=== PATIENT | male | born 1955 | race African-American/Black ===

== ENCOUNTER 2023-09-28 13:05 | Outpatient (AMB) | payer MEDICARE, MEDICAID, SELFPAY ==
--- NOTE | 2023-09-28 12:59 | HO.NEPHOV ---
HPI HPI Comments History of Present Illness Details Clarisa is a 68-year-old man with a history of longstanding diabetes mellitus hypertension dyslipidemia obesity and obstructive sleep apnea new coronary disease and status post mitral valve replacement in 2008. He has severe biventricular dysfunction along with chronic pulmonary disease. Next he is here for follow-up regarding his chronic disease. He has history of severe anemia and was previously treated with the intravenous iron. Hemoglobin improved with iron replacement and hemoglobin has been stable thus far and he has not required any erythropoietin injections. [facility] Surgical History (Updated 09/28/23 @ 13:16 by Beba Brady) S/P hip replacement H/O heart surgery Family History (Updated 09/28/23 @ 13:19 by Beba Brady) Father Medical condition not demonstrated Mother No problems noted. Vital Signs 09/28/23 13:07 Height 6 ft Weight 254 lb 6 oz BMI 34.5 BP 100/68 Blood Pressure Location Lt brachial Position Sitting Pulse 60 Pulse Source Pulse Oximeter Pulse Oximetry (%) 98 Oxygen Delivery Method Room Air Physical Exam Vital Signs: Last Vital Signs Pulse 60 09/28/23 13:07 BP 100/68 09/28/23 13:07 Pulse Ox 98 09/28/23 13:07 Oxygen Delivery Method Room Air 09/28/23 13:07 BMI result Body Mass Index 34.5 Const General: comfortable; No acute distress Orientation/consciousness: patient oriented x3 Eyes General: appearance normal, both eyes and all related structures Visual Wagner: normal visual wagner by confrontation Neck Neck: Yes supple and Yes no JVD Resp Effort & Inspection: normal respiratory effort and respiratory effort not decreased Auscultation: rhonchi Cardio Palpation: no palpable S3 and no palpable S4 Heart sounds: no rubs GI Inspection: Yes normal to inspection Palpation (GI): Soft to palpation Percussion: Yes normal to percussion Auscultation: normal bowel sounds General: Yes no CVA tenderness Back/Spine/Pelvis Back: no CVA tenderness Skin General skin exam: no petechiae and no purpura Neuro General: patient oriented x3 and no focal motor deficits Extrem General: No clubbing and No edema Results Reviewed Results Reviewed: All lab results reviewed. In July 2023 serum creatinine was 2 point 4 with EGFR of 29 mL/minute. Assessment & Plan Assessment & Plan (1) CKD (chronic kidney disease) stage 4, GFR 15-29 ml/min: Code(s): N18.4 - Chronic kidney disease, stage 4 (severe) Plan: Renal functions close to baseline. Goal is to slow the portion disease. Continue our nephrotoxic agents including NSAIDs. He is at high risk for ongoing renal injury. (2) Anemia: Code(s): D64.9 - Anemia, unspecified Plan: Hemoglobin improved after iron supplementation. No absolute indication for erythropoietin injection. Follow hematocrit periodically (3) CHF (congestive heart failure): Code(s): I50.9 - Heart failure, unspecified Plan Currently appears compensated He is on Entresto approximate and spironolactone. Encouraged to stay on low-potassium diet since he is at risk for hyperkalemia Continue close follow-up with Cardiology Orders: Orders Blood Urea Nitrogen 11 Months N18.4 - Chronic kidney disease, stage 4 (severe) Creatinine 11 Months N18.4 - Chronic kidney disease, stage 4 (severe) Complete Blood Count no Diff 11 Months N18.4 - Chronic kidney disease, stage 4 (severe) Electrolytes 11 Months N18.4 - Chronic kidney disease, stage 4 (severe) Calcium 11 Months N18.4 - Chronic kidney disease, stage 4 (severe) Coding Level of Care Code Est Pt Level 4 (58419) Diagnoses CKD (chronic kidney disease) stage 4, GFR 15-29 ml/min N18.4 Anemia D64.9 CHF (congestive heart failure) I50.9
[2023-09-28 13:07] VITALS: BP 100/68; PULSE 60; O2SAT 98; BMI 34.5
== END 2023-09-28 13:40 | disposition home or self-care (01) ==
PROVIDERS: PCP Internal Medicine; Visit Provider Internal Medicine Hypertension Specialist
DX: N18.4 Chronic kidney disease, stage 4 (severe) (principal); D64.9 Anemia, unspecified; I50.9 Heart failure, unspecified
CPT/HCPCS: 99214

== ENCOUNTER → 2023-09-28 13:05 | Outpatient (BNVA) | payer MEDICARE, MEDICAID, SELFPAY | PROVIDERS: PCP Internal Medicine; Visit Provider Internal Medicine Hypertension Specialist | DX: E11.22 Type 2 diabetes mellitus with diabetic chronic kidney disease (principal); I13.0 Hypertensive heart and chronic kidney disease with heart failure and stage 1 through stage 4 chronic kidney disease, or unspecified chronic kidney disease; N18.4 Chronic kidney disease, stage 4 (severe); I50.9 Heart failure, unspecified; D64.9 Anemia, unspecified | CPT/HCPCS: 99212 ==

== ENCOUNTER 2024-08-01 08:28 | Outpatient (AMB) | payer MEDICARE, MEDICAID, SELFPAY ==
--- NOTE | 2024-08-01 08:30 | HO.NEPHOV_ITS ---
Vital Signs 08/01/24 08:33 Height 6 ft Weight 252 lb BMI 34.2 BP 112/62 Blood Pressure Location Lt brachial Position Sitting Pulse 55 Pulse Source Pulse Oximeter Pulse Oximetry (%) 95 Oxygen Delivery Method Room Air Intake Visit Reasons: 1Y follow up/ Conf Scalp Treatment Operator Required: No Accompanied by: Self / Same As Patient Allergies Penicillins Allergy (Verified 08/01/24 08:33) rash acetaminophen [From Percocet] Adverse Reaction (Verified 08/01/24 08:33) Rash oxycodone [From Percocet] Adverse Reaction (Verified 08/01/24 08:33) Rash Medication List - Last Reconciled 08/01/24 by Mian Ham MD allopurinol 100 mg PO DAILY amlodipine 10 mg PO DAILY aspirin 81 mg PO DAILY carvedilol 25 mg PO BID cholecalciferol (vitamin D3) (Vitamin D3) 25 mcg PO DAILY ferrous gluconate mg PO magnesium oxide 400 mg PO DAILY mecobalamin (vitamin B12) mcg PO multivitamin 1 tab PO DAILY omeprazole 40 mg PO DAILY rosuvastatin 40 mg PO DAILY sacubitril-valsartan 97-103 mg (Entresto) 1 tab PO BID semaglutide (Ozempic) mg subcut QWEEK spironolactone 25 mg PO DAILY torsemide 40 mg PO DAILY umeclidinium-vilanterol 62.5-25 mcg/actuation (Anoro Ellipta) 1 inh inhalation DAILY warfarin 5 mg PO QDAY warfarin mg PO HPI Comments Details: Marino is a 69-year-old man with a history of longstanding diabetes mellitus hypertension dyslipidemia obesity and obstructive sleep apnea new coronary disease and status post mitral valve replacement in 2008. He has severe biventricular dysfunction along with chronic pulmonary disease. he is here for follow-up regarding his chronic disease. He has history of severe anemia and was previously treated with the intravenous iron. Hemoglobin improved with iron replacement and hemoglobin has been stable thus far and he has not required any erythropoietin injections. 08/01/24 Here for annual follow up Had knee replacement in December 2023 No change in diuretics PFSH Surgical History S/P hip replacement H/O heart surgery Family History Father Medical condition not demonstrated Mother No problems noted. Physical Exam Vital Signs: Last Vital Signs Pulse 55 08/01/24 08:33 BP 112/62 08/01/24 08:33 Pulse Ox 95 08/01/24 08:33 Oxygen Delivery Method Room Air 08/01/24 08:33 BMI result Body Mass Index 34.2 Const General: comfortable; No acute distress Orientation/consciousness: patient oriented x3 Eyes General: appearance normal, both eyes and all related structures Visual Wagner: normal visual wagner by confrontation Neck Neck: Yes supple and Yes no JVD Resp Effort & Inspection: normal respiratory effort and respiratory effort not decreased Auscultation: rhonchi Cardio Palpation: no palpable S3 and no palpable S4 Heart sounds: no rubs GI Inspection: Yes normal to inspection Palpation (GI): Soft to palpation Percussion: Yes normal to percussion Auscultation: normal bowel sounds General: Yes no CVA tenderness Back/Spine/Pelvis Back: no CVA tenderness Skin General skin exam: no petechiae and no purpura Neuro General: patient oriented x3 and no focal motor deficits Extrem General: No clubbing and No edema Results Reviewed Results Reviewed: Jul 2024 Peaked to 4.1 and now down to 3.18 Baseline is close to 2.2 Nephrology Results: No Data to Display Assessment & Plan Assessment & Plan (1) CKD (chronic kidney disease) stage 4, GFR 15-29 ml/min: Code(s): N18.4 - Chronic kidney disease, stage 4 (severe) Category: Medical Plan: Renal functions Worsened and now improving Possible hypoperfusion Ok to decrease Torsemide to 20 mg QD and watch weight If weight increased by more than 3 lbs, can increase to 40 mg PRN Recheck in 1 month Continue our nephrotoxic agents including NSAIDs. He is at high risk for ongoing renal injury. (2) Anemia: Code(s): D64.9 - Anemia, unspecified Category: Medical Plan: Hemoglobin improved after iron supplementation. No absolute indication for erythropoietin injection. Follow hematocrit periodically Ordered CBC /Iron (3) CHF (congestive heart failure): Code(s): I50.9 - Heart failure, unspecified Category: Medical Plan Currently appears compensated He is on Entresto approximate and spironolactone/ Torsemide Encouraged to stay on low-potassium diet since he is at risk for hyperkalemia Continue close follow-up with Cardiology Orders: Orders Basic Metabolic Panel 1 Month D64.9 - Anemia, unspecified, N18.4 - Chronic kidney disease, stage 4 (severe) Ferritin 1 Month D64.9 - Anemia, unspecified, N18.4 - Chronic kidney disease, stage 4 (severe) Complete Blood Count Auto Diff 1 Month D64.9 - Anemia, unspecified, N18.4 - Chronic kidney disease, stage 4 (severe) IRON PROFILE 1 Month D64.9 - Anemia, unspecified, N18.4 - Chronic kidney disease, stage 4 (severe) Coding Level of Care Code Est Pt Level 4 (10555) Diagnoses CKD (chronic kidney disease) stage 4, GFR 15-29 ml/min N18.4 Anemia D64.9 CHF (congestive heart failure) I50.9
[2024-08-01 08:33] VITALS: BP 112/62; PULSE 55; O2SAT 95; BMI 34.2
== END 2024-08-01 09:02 | disposition home or self-care (01) ==
PROVIDERS: PCP Internal Medicine; Visit Provider Internal Medicine Hypertension Specialist
DX: N18.4 Chronic kidney disease, stage 4 (severe) (principal); D64.9 Anemia, unspecified; I50.9 Heart failure, unspecified
CPT/HCPCS: 99214

== ENCOUNTER → 2024-08-01 08:28 | Outpatient (BNVA) | payer MEDICARE, MEDICAID, SELFPAY | PROVIDERS: PCP Internal Medicine; Visit Provider Internal Medicine Hypertension Specialist | DX: N18.4 Chronic kidney disease, stage 4 (severe) (principal); I50.9 Heart failure, unspecified; D64.9 Anemia, unspecified | CPT/HCPCS: 99212 ==

== ENCOUNTER 2025-02-13 09:59 | Outpatient (AMB) | payer MEDICARE, MEDICAID, SELFPAY ==
[2025-02-13 09:55] VITALS: BP 112/60; PULSE 60; O2SAT 96; BMI 34.7
--- NOTE | 2025-02-13 09:55 | HO.NEPHOV ---
Vital Signs 02/13/25 09:55 Height 6 ft Weight 256 lb BMI 34.7 BP 112/60 Blood Pressure Location Lt brachial Position Sitting Pulse 60 Pulse Source Pulse Oximeter Pulse Oximetry (%) 96 Oxygen Delivery Method Room Air Intake Visit Reasons: 6m follow up/ Conf Allergies Penicillins Allergy (Verified 02/13/25 09:55) rash acetaminophen [From Percocet] Adverse Reaction (Verified 02/13/25 09:55) Rash oxycodone [From Percocet] Adverse Reaction (Verified 02/13/25 09:55) Rash Medication List - Last Reconciled 02/13/25 by Mian Ham MD allopurinol 100 mg PO DAILY amlodipine 10 mg PO DAILY aspirin 81 mg PO DAILY carvedilol 25 mg PO BID cholecalciferol (vitamin D3) (Vitamin D3) 25 mcg PO DAILY ferrous gluconate mg PO magnesium oxide 400 mg PO DAILY mecobalamin (vitamin B12) mcg PO multivitamin 1 tab PO DAILY omeprazole 40 mg PO DAILY rosuvastatin 40 mg PO DAILY sacubitril-valsartan 97-103 mg (Entresto) 1 tab PO BID semaglutide (Ozempic) mg subcut QWEEK spironolactone 25 mg PO DAILY torsemide 40 mg PO DAILY umeclidinium-vilanterol 62.5-25 mcg/actuation (Anoro Ellipta) 1 inh inhalation DAILY warfarin 5 mg PO QDAY warfarin mg PO HPI Comments Details: Marino is a 69-year-old man with a history of longstanding diabetes mellitus hypertension dyslipidemia obesity and obstructive sleep apnea new coronary disease and status post mitral valve replacement in 2008. He has severe biventricular dysfunction along with chronic pulmonary disease. he is here for follow-up regarding his chronic disease. He has history of severe anemia and was previously treated with the intravenous iron. Hemoglobin improved with iron replacement and hemoglobin has been stable thus far and he has not required any erythropoietin injections. 08/01/24 Here for annual follow up;Had knee replacement in December 2023;No change in diuretics [facility] Surgical History S/P hip replacement H/O heart surgery Family History Father Medical condition not demonstrated Mother No problems noted. Physical Exam Vital Signs: Last Vital Signs Pulse 60 02/13/25 09:55 BP 112/60 02/13/25 09:55 Pulse Ox 96 02/13/25 09:55 Oxygen Delivery Method Room Air 02/13/25 09:55 BMI result Body Mass Index 34.7 Results Reviewed Nephrology Results: No Data to Display Assessment & Plan Assessment & Plan (1) CKD (chronic kidney disease) stage 4, GFR 15-29 ml/min: Code(s): N18.4 - Chronic kidney disease, stage 4 (severe) Category: Medical Plan: Renal function is close to baseline. Continue to avoid nephrotoxic agents including NSAIDs. He is at high risk for ongoing renal injury. (2) Anemia: Code(s): D64.9 - Anemia, unspecified Category: Medical Plan: Hemoglobin improved after iron supplementation. No absolute indication for erythropoietin injection. Follow hematocrit periodically Ordered CBC /Iron (3) CHF (congestive heart failure): Code(s): I50.9 - Heart failure, unspecified Category: Medical Plan Currently appears compensated He is on Entresto approximate and spironolactone/ Torsemide Encouraged to stay on low-potassium diet since he is at risk for hyperkalemia Continue close follow-up with Cardiology Orders: Orders Basic Metabolic Panel 6 Months D64.9 - Anemia, unspecified, N18.4 - Chronic kidney disease, stage 4 (severe) Complete Blood Count no Diff 6 Months D64.9 - Anemia, unspecified, N18.4 - Chronic kidney disease, stage 4 (severe) Coding Level of Care Code Est Pt Level 4 (19484) Diagnoses CKD (chronic kidney disease) stage 4, GFR 15-29 ml/min N18.4 Anemia D64.9 CHF (congestive heart failure) I50.9
--- OUTSIDE RECORDS SUMMARY | 2025-02-13 11:26 | XMS_ITS | Encounter Summary ---
Author Name [facility] [facility] [place] Address [address] [place] [address] Care Team Providers Care Equip Maint Eng Name Role Phone FERMIN MEJIA Primary Care Provider Unavailabl e Insurance Providers: All historical and current Section Date Range: From patient's date of to the date document was created. This section includes the names of all active insurance providers for the patient. Insurance Provider Type of Coverage Plan Name Start of Policy Coverage End of Policy Coverage Group Number Member ID Insurance Provider's Telephone Number Policy Mendiola's Name Patient's Relationship to Policy Mendiola [employer] [facility] ([facility]) MEDICARE ADVANTAGE [facility] ([facility]) Jul 31, 2017 [id number] STEVEN ALEXANDRE JR S PATIENT MEDICARE ([facility]) MEDICARE (M) PART A Mar 31, 2012 PART A [id number] VANDA ALEXANDRE JRLE S PATIENT MEDICARE (WNR) MEDICARE (M) PART B Mar 31, 2012 PART B [id number] BALDOMERO HORNESTEVEN S PATIENT MEDICARE (WNR) MEDICARE (M) PART A Mar 31, 2012 PART A [id number] STEVEN ALEXANDRE JR S PATIENT MEDICARE ([facility]) MEDICARE (M) PART B Mar 31, 2012 PART B [id number] STEVEN ALEXANDRE JR S PATIENT MEDICARE (WNR) MEDICARE (M) PART A Mar 31, 2012 PART A [id number] [phone] STEVEN ALEXANDRE JR S PATIENT MEDICARE (WNR) MEDICARE (M) PART B Mar 31, 2012 PART B [id number] [phone] STEVEN ALEXANDRE JR S PATIENT MEDICARE (WNR) MEDICARE (M) PART A Mar 31, 2012 PART A [id number] [phone] STEVEN ALEXANDRE JR S PATIENT MEDICARE (WNR) MEDICARE (M) PART B Mar 31, 2012 PART B [id number] [phone] STEVEN ALEXANDRE JR S PATIENT MEDICARE (WNR) MEDICARE (M) PART A Mar 31, 2012 PART A [id number] STEVEN ALEXANDRE JR S PATIENT MEDICARE (WNR) MEDICARE (M) PART B Mar 31, 2012 PART B [id number] STEVEN ALEXANDRE JR S PATIENT MEDICARE PART D (WNR) PRESCRIPT ION PART D May 31, 2012 PART D [id number] [phone] STEVEN ALEXANDRE JR PATIENT MEDICARE PART D (WNR) PRESCRIPT ION PART D May 31, 2012 PART D [id number] STEVEN ALEXANDRE JR PATIENT Selected Encounter This section includes the information on record at [place] for the Encounter. Date/Time Encounter Type Encounter Description Reason Provider Source Jan 31, 2025 08:30 AM OFFICE O/P EST MOD 30 MIN PODIATRY ICD-10-CM L60.3 Nail dystrophy CLAUDIA RASHEED Leonardo Encounter Template Text not used by [place] Assessments - Encounter Diagnoses This section includes the primary and secondary diagnoses documented for the Encounter. Date/Time Primary/Secondary Diagnosis Diagnosis Name Provider Source Jan 31, 2025 08:59 AM PRIMARY Nail dystrophy CLAUDIA RASHEED Jan 31, 2025 08:59 AM SECONDARY Pain in left toe(s) CLAUDIA RASHEED Jan 31, 2025 08:59 AM SECONDARY Pain in right toe(s) CLAUDIA RASHEED Jan 31, 2025 08:59 AM SECONDARY Type 2 diabetes w diabetic peripheral angiopath w/o gangrene CLAUDIA RASHEED [place] Plan of Treatment: Future Appointments (+ 6 months) and Future Tests (+/- 45 days) The Plan of Treatment section includes future care activities for the patient from [facility] [place] [facility]. This section includes future appointments and future orders which are active, pending or scheduled. Future Appointments This section includes appointments that were scheduled to occur 6 months from the date of the Encounter, up to a maximum of 20 appointments. The data comes from all [facility] facilities. Appointment Date/Time Appointment Type Appointme nt Facility Name Feb 06, 2025 10:30 AM AMBULATORY - MEDICINE [facility] Feb 12, 2025 08:00 AM AMBULATORY - PSYCHIATRY [facility] March 07, 2025 08:00 AM AMBULATORY - PSYCHIATRY [facility] March 12, 2025 10:00 AM AMBUL[facility]ORY - MEDICINE [facility] May 14, 2025 02:00 PM AMBULATORY - MEDICINE [facility] Jun 06, 2025 08:30 AM AMBULATORY - MEDICINE [facility] Jul 24, 2025 08:30 AM [facility] Social History: Smoking Status (Most current) and Tobacco Use (All prior to encounter date) This section includes the most current, and the historical, smoking and tobacco- related health factors from the [place] facility where the Encounter took place. Current Smoking Status This section includes the most current smoking, or tobacco-related health factor, from the [place] facility where the Encounter took place. Date/Time Current Smoking Status Comment David ity Jun 18, 2022 09:00 AM [place]-TOBACCO QUIT 15 YRS OR MORE [place] Tobacco Use History This section includes a history of the smoking, or tobacco-related health factors, that were collected on or before the date of the Encounter. The data comes from the [place] facility where the Encounter took place. Date/Time Smoking Status/Tobacco Use Comment F acility Jun 18, 2022 09:00 AM VA-TOBACCO QUIT 15 YRS OR MORE [place] March 20, 2021 02:00 PM VA-TOBACCO FORMER USER [place] March 20, 2021 02:00 PM VA-TOBACCO QUIT 15 YRS OR MORE [place] May 25, 2018 08:15 AM VA-TOBACCO FORMER USER [place] May 25, 2018 08:15 AM VA-TOBACCO QUIT 15 YRS OR MORE [place] May 10, 2018 04:32 PM [facility] Oct 28, 2016 12:56 PM QUIT TOBACCO USE > 7 YEARS AGO stopped smoking 20 years ago [place] Oct 30, 2015 12:58 PM QUIT TOBACCO USE > 7 YEARS AGO [place] Encounter Notes: All associated encounter notes This section contains the clinical notes associated to the Encounter. Date/Time Encounter Note(s) Provider Source Feb 11, 2025 09:13 AM LETTERS: LOCAL TITLE: PATIENT LETTER (B) STANDARD TITLE: LETTERS DATE OF NOTE: FEB 11, 2025@09:13 ENTRY DATE: FEB 11, 2025@09:13:34 AUTHOR: HERMILO ODONNELL COSIGNER: URGENCY: STATUS: COMPLETED [facility] [address] [place] [address] [phone] * [phone] * CLAUDIA ALEXANDRE [address] [place] [id number] Date: FEB 11, 2025 Dear : This is a reminder letter that your SHOES are [facility] pick [facility] located at [address] [place] [address]. You may pick up operator your shoes and or orthotics at your convenience any day, Tuesday through Tuesday between 8:30am and 3:30pm. You do not need an appointment. BUT WE DO REQUEST THAT YOU CALL BEFORE ARRIVING TO MAKE SURE THE PODIATRY HEALTH PEGA DEVELOPER IS AVAILABLE ON THAT DAY. Call [phone] for Hermilo if you have any questions. We hope to see you soon, Sincerely, Office Staff for:FERMIN MEJIA Care Provider Upcoming Appointments: 02/12/2025 08:00 SPR [facility] SWA 1 03/12/2025 10:00 [facility] ACUPUNCTURE R2 1 05/14/2025 14:00 SPR PACT 1 SELECTOR PACKER 06/06/2025 08:30 SPR PODIATRY 1 07/24/2025 08:30 [facility] DENTAL RDH 1 AM HERMILO ODONNELLFIELD Jan 31, 2025 09:01 AM PODIATRY NOTE: LOCAL TITLE: PODIATRY PAVE FOOT EXAM STANDARD TITLE: PODIATRY NOTE DATE OF NOTE: JAN 31, 2025@09:01 ENTRY DATE: JAN 31, 2025@09:01:11 AUTHOR: CLAUDIA RASHEED EXP COSIGNER: URGENCY: STATUS: COMPLETED PAVE FOOT EXAM A foot risk level was completed. The following risk level was identified for this patient: +POD RISK SCORE+ *--LEVEL 3 - (HIGH RISK)* ANY of the following: Severe obstructive peripheral arterial disease Ulceration; OR history of ulceration, osteomyelitis, or amputation Charcot joint w/foot deformity Chronic kidney disease, stage 4 or higher (Decreased sensation, foot deformity, and minor foot infection may be present or absent) LEVEL 3 FOOT EDUCATION: 1. Advised patient that extra depth footwear with soft molded inserts and braces may be required. 2. Advised patient not to walk barefoot. Instructed the patient to pay close attention to the style and fit of shoes. 3. Explained the importance of daily foot checks. Explained that loss of sensation leads to callouses. Callouses break down, which result in ulcers that may lead to gangrene and amputation. 4. Stressed the importance of daily foot hygiene. Warm (not hot) bathing of the feet, complete drying and thorough inspection for changes in the condition of the skin constitute daily foot care. Demonstrated how to do a thorough foot check. 5. Emphasized the use of clean, non-restrictive socks/stockings and well fitting shoes. 6. Stressed the importance of immediate follow-up of any foot injuries or ulcers. Explained that he/she should be non-weight bearing whenever there are lesions on the foot, to prevent cellular damage. Level of Understanding: Good Patient/Family Response to Foot Care Teaching Patient walks barefoot: A few times per month Patient/caregiver able to clean feet at least once daily: Yes Patient/caregiver has difficulty examining feet: No /clint/ CLAUDIA RASHEED DPM SENIOR MARKETING SPECIALIST Signed: 01/31/2025 09:01 CLAUDIA RASHEED [place] Jan 31, 2025 07:26 AM PODIATRY NOTE: LOCAL TITLE: PODIATRY NOTE STANDARD TITLE: PODIATRY NOTE DATE OF NOTE: JAN 31, 2025@07:26 ENTRY DATE: JAN 31, 2025@07:26:16 AUTHOR: CLAUDIA RASHEED EXP COSIGNER: URGENCY: STATUS: COMPLETED RECEIVED BOTH COVID DOSES FROM [facility] AND PROVIDED HIS CARD FOR COPYING AT [facility] FOR MEDICAL RECORDS-RECEIVED 4 BOOSTERS LAST SEEN FOR TREATMENT: 09/26/2024 S: Pt. is a 69 yo alert WDWN AFR-AMER MALE who is seen for CONTINUED podiatric evaluation & care for treatment of painful incurvated nails & acutely painful hyperkeratosis. There has been pain for several weeks which is daily with periods of exacerbation & remission, is of an aching throbbing nature and is exacerbated with shoes & increased activity. Pain level is 2-3/10 prior to treatment & 0/10. There is no history of trauma. There have been no recent changes in the patient's medical condition or medications upon questioning today. Pt. is at risk of injury with self-care due to the presence of TYPE II DM. *MEDS RECONCILIATION PERFORMED THIS DATE SEE BELOW-DENIES ANY RECENT CHANGES DENIES TOBACCO TOBACCO USE=NONE O: Exam reveals skin color & temp to be WNL text has areas of dryness plantar aspect of heels bilat. There is absence of hair noted. Nails are incurvated with rubor in the medial & lateral nail grooves and pain on palpation. Affected nails are as follows: HALLUX bilat WELL LESSER DIGIT NAILS. There are multiple hyperkeratosis noted at the following locations: PLANTAR HALLUX BILAT, PLANTAR 2ND MET HEAD BILAT, PLANTAR 5TH RT MET HEAD & LATERAL 5TH LT MET HEAD & POSTERIOR-PLANTAR HEELS BILATERAL. There are no other gross LE changes in status noted this date. PMH: Active problems - Computerized Problem List is the source for the following: *NOTE: REVIEWED ABOVE NOTING NO CHANGES SINCE PREVIOUS VISIT:(TYPE II DM, CHF) *NOTE: PLEASE SEE PROBLEM LIST TEMPLATE FOR COMPLETE LIST NEEDED. A1c = 7.1 (LAST TAKEN: 12/2024-[facility]?) UPN=298EE RISK=2 HEIGHT: 61 in [154.9 cm] (03/02/2016 15:01) WEIGHT: 188.1 lb [85.5 kg] (03/02/2016 15:01) VASCULAR: EXAM REVEALS DP & PT pulses TO BE absent non-palpable bilateral. CFT <3 sec x 10. There is +2 edema and there are no varices noted. MUSCULOSKELETAL: Exam reveals muscle strength and tone to be equal & symmetrical bilaterally & WNL for an individual of this age and present physical-medical condition. There is pain free ROM at all joints distal to and including the ankle. NEUROLOGICAL: Exam reveals S/D, vibratory, light touch & proprioception sensations to be equal & symmetrical bilaterally & diminished for an individual of this age and present physical-medical status. Protective sensation utilizing a [place]-Melony lOg monofilament is 10/10 bilateral. ABOVE Exams are reviewed and noted to be unchanged since previous visit & determined to be non-contributory to the cc other than in areas of hyperkeratosis. *NOTE: *YEARLY COMPLETE PAVE EXAM PERFORMED TODAY - SEE BELOW. A: Clinical Impression: Painful onychocryptic nails as noted above & hyperkeratosis in the presence of PVD, DM, NEUROPATHY. Class findings have been met in a high risk individual and the systemic condition has resulted in circulatory impairment & areas of desensitization. P: Treatment consists of trimming-reduction of all nails via manual and electric means with excision of offending nail borders and curetting of nail grooves & surgical paring-debridement of all hyperkeratosis utilizing a sterile #10 scalpel. Applied ammonium lactate 12% lotion to dry skin. All care rendered without complications & pt. progressing well after podiatric care this date & will be scheduled for periodic care in an attempt to prevent future complications due to the underlying medical conditions. Tx. By a non- professional could be extremely hazardous to the patient's well-being due to the underlying medical condition. RTC 20 WEEKS (01/31 @8:30AM)) *NOTE: REVIEWED HOME FOOT CARE FEET ARE IN EXCELLENT CONDITION AND I PROVIDED WRITTEN RECOMMENDATIONS FOR CONTINUED HOME CARE ( FOOT CARE TIPS) *DISCUSSED NEW PROTOCOLS AND CALLED [facility] TODAY FOR RESCHEDULING I DISCUSSED THE FINDINGS & PLAN WITH PATIENT (UNCHANGED SINCE PREVIOUS VISIT) & PATIENT AGREES AND UNDERSTANDS PLAN & RECEIVED NEW MIRROR Medication Reconciliation: PERFORMED TODAY - SEE BELOW. Outpatient: Has the patient been taking medications as documented in the EMLR? YES: The patient has been taking medications as documented in the EMLR. Essential Medication List for Review used to complete this medication reconciliation. INCLUDED IN THIS LIST: Alphabetical list of active outpatient prescriptions dispensed from this [place] (local) and dispensed from another [place] or [facility] facility (remote) as well as inpatient orders (local, pending and active), local clinic medications, locally documented non-VA medications, and local prescriptions that have or been discontinued in the past 90 days. - All changes in medications, including all non-VA/Herbal/OTC medications were entered into CPRS. - If there were any medications the patient should no longer take, they were discontinued. - The patient/caregiver was instructed to update this list, discard old lists, and take this list to the next appointment, whether with a VA or non-VA provider. JLV Link Data on this list may not be complete. Please check JLV. Allergies/ADRs (Tool #5) FACILITY ALLERGY/ADR -------- [facility] ACETAMINOPHEN/OXYCODONE [facility] PENICILLIN [facility]IRON[facility]ONE [facility] ACETAMINOPHEN/OXYCODONE [facility] PENICILLIN Med Recon NoGlossary (Tool #1) INCLUDED IN THIS LIST: Alphabetical list of active outpatient prescriptions dispensed from this [place] (local) and dispensed from another [place] or [facility] facility (remote) as well as inpatient orders (local pending and active), local clinic medications, locally documented non-VA medications, and local prescriptions that have or been discontinued in the past 90 days. Non-VA Meds Last Documented On: Apr 23, 2024 NOTE The display of VA prescriptions dispensed from another [place] or [facility] facility (remote) is limited to active outpatient prescription entries matched to National Drug File at the originating site and may not include some items such as investigational drugs, compounds, etc. NOT INCLUDED IN THIS LIST: Medications self-entered by the patient into personal health records (i.e. [employer]) are NOT included in this list. Non-VA medications documented outside this [place], remote inpatient orders (regardless of status) and remote clinic medications are NOT included in this list. The patient and provider must always discuss medications the patient is taking, regardless of where the medication was dispensed or obtained. Non-VA ALLOPURINOL 100MG TAB TAKE ONE TABLET BY MOUTH DAILY Medication prescribed by Non-VA provider. Non-VA AMLODIPINE BESYLATE 5MG TAB TAKE ONE TABLET BY MOUTH ONCE DAILY Medication prescribed by Non-VA provider. OUTPT AMMONIUM LACTATE 12% LOTION (Status = Active) APPLY SMALL AMOUNT TOPICALLY TWICE DAILY FOR DRY SKIN FOR DRY IRRITATED SKIN Rx# [id number] Last Released: 11/15/24 Qty/Days Supply: 240/60 Rx Expiration Date: 09/27/25 Refills Remainin Indication: FOR DRY SKIN Non-VA ASPIRIN 81MG EC TAB TAKE ONE TABLET BY MOUTH DAILY Medication prescribed by Non-VA provider. OUTPT ATORVASTATIN CALCIUM 80MG TAB (Status = Active) TAKE ONE-HALF TABLET BY MOUTH ONCE DAILY FOR HIGH CHOLESTEROL Rx# [id number] Last Released: 12/18/24 Qty/Days Supply: 45/90 Rx Expiration Date: 12/19/25 Refills Remainin Indication: FOR HIGH CHOLESTEROL Non-VA CARVEDILOL 25MG TAB TAKE ONE TABLET BY MOUTH TWICE DAILY Medication prescribed by Non-VA provider. OUTPT CYANOCOBALAMIN 500MCG TAB (Status = Active) TAKE ONE TABLET BY MOUTH ONCE DAILY FOR PREVENTION OF VITAMIN B12 DEFICIENCY Rx# [id number] Last Released: 12/18/24 Qty/Days Supply: 100/90 Rx Expiration Date: 08/03/25 Refills Remainin Indication: FOR PREVENTION OF VITAMIN B12 DEFICIENCY Non-VA FERROUS GLUCONATE 324MG TAB TAKE ONE TABLET BY MOUTH ONCE DAILY Medication prescribed by Non-VA provider. Non-VA FLUTICASONE PROP 220MCG 120D ORAL INHL INHALE 2 PUFFS BY MOUTH TWICE DAILY Medication prescribed by Non-VA provider. Non-VA INSULIN,GLARGINE (LANTUS) INJ INJECT 15 UNITS SUBCUTANEOUSLY ONCE DAILY Medication prescribed by Non-VA provider. OUTPT ISOSORBIDE MONONITRATE 30MG SA TAB (Status = ) TAKE ONE TABLET BY MOUTH ONCE DAILY TO PREVENT ANGINA Rx# [id number] Last Released: 12/11/24 Qty/Days Supply: Rx Expiration Date: 01/09/25 Refills Remainin Indication: TO PREVENT ANGINA Non-VA MULTIVITAMIN/MINERALS CAP/TAB TAKE ONE TABLET BY MOUTH ONCE DAILY Medication prescribed by Non-VA provider. Non-VA OLODATEROL/TIOTROP 2.5MCG/ACTUAT 60D INH INHALE 2 PUFFS (1 DOSE) BY MOUTH ONCE DAILY Medication prescribed by Non-VA provider. Non-VA SACUBITRIL 97MG/VALSARTAN 103MG TAB 103MG TABLET TAKE ONE TABLET BY MOUTH TWICE DAILY Medication prescribed by Non-VA provider. Non-VA SEMAGLUTIDE 1MG/0.75ML INJ PEN 3ML INJECT 1MG SUBCUTANEOUSLY ONCE A WEEK Medication prescribed by Non-VA provider. Non-VA SPIRONOLACTONE 25MG TAB TAKE ONE TABLET BY MOUTH ONCE DAILY Medication prescribed by Non-VA provider. Non-VA TORSEMIDE 20MG TAB TAKE ONE TABLET BY MOUTH EVERY MORNING FOR 90 DAYS AND TAKE TWO TABLETS BY MOUTH EVERY EVENING FOR 90 DAYS Medication prescribed by Non-VA provider. Torsemide 60/60 baseline, 120/120 intervention (per [facility]) Non-VA WARFARIN (NON-VA) TAB TAKE 5 BY MOUTH EVERY DAY SUPPLIES PAVE Foot Check: A complete foot check was completed at this encounter. VISUAL INSPECTION: Includes inspection for skin breaks, deformity, erythema, trauma, pallor on elevation, dependent rubor, nail deformities, extensive callus and pitting edema. Visual exam results: Abnormal Observations: Thickened toenails PEDAL PULSES: Includes palpation of dorsalis and posterior tibial pulses and signs/symptoms of vascular compromise like pain, pallor, parasthesia or paralysis. Absent: Comment: DP & PT PULSES ARE ABSENT NON-PALPABLE BILAT SENSORY CHECK: Includes 10 gram Monofilament ([place]-Melony) test of sensation. Intact (Greater than or equal to 80% of sites checked) Abnormal (Less than 80% of sites checked): Intact Comment: VIBRATORY & MONOFILAMENT ARE WNL BILAT HIGH-RISK: HIGH RISK INFORMATION PROVIDED: 1. Advised patient that extra depth footwear with soft molded inserts and braces may be required. 2. Advised patient not to walk barefoot. 3. Explained the importance of daily foot checks. 4. Stressed the importance of daily foot hygiene, including bathing, complete drying and thorough inspection for changes. The patient verbalized understanding and was offered a detailed handout on diabetic foot care. Patient is established patient of Podiatry and/or Vascular: Last scheduled appointment: [Place data object here] Comment: 09/26/2024 /clint/ CLAUDIA RASHEED DPM SENIOR MARKETING SPECIALIST Signed: 01/31/2025 08:59 CLAUDIA RASHEED [place]
--- OUTSIDE RECORDS SUMMARY | 2025-02-13 11:26 | XMS_ITS | Encounter Summary ---
Author Name [facility] Address [address] [place] [address] Care Team Providers Care Filler Spreader Name Role Phone FERMIN MEJIA Primary Care [...] Name Patient's Relationship to Policy [facility] ([facility]) MEDICARE ADVANTAGE [facility] ([facility]) Jul 31, 2017 [id number] STEVEN ALEXANDRE JR S PATIENT MEDICARE ([facility]) MEDICARE (M) PART A Mar 31, 2012 PART A [id number] STEVEN ALEXANDRE JR S PATIENT MEDICARE (WNR) MEDICARE (M) PART B Mar 31, 2012 PART B [id number] BALDOMERO HORNESTEVEN S PATIENT MEDICARE (WNR) MEDICARE (M) PART A Mar 31, 2012 PART A [id number] STEVEN ALEXANDRE JR S PATIENT MEDICARE ([facility]) MEDICARE (M) PART B Mar 31, 2012 PART B [id number] [phone] STEVEN ALEXANDRE JR PATIENT MEDICARE (WNR) MEDICARE (M) PART A Mar 31, 2012 PART A [id number] [phone] STEVEN ALEXANDRE JR S PATIENT MEDICARE (WNR) MEDICARE (M) PART B Mar 31, 2012 PART B [id number] [phone] STEVEN ALEXANDRE JR S PATIENT MEDICARE (WNR) MEDICARE (M) PART A Mar 31, 2012 PART A [id number] STEVEN ALEXANDRE JR S PATIENT MEDICARE (WNR) MEDICARE (M) PART B Mar 31, 2012 PART B [id number] STEVEN ALEXANDRE JR S PATIENT MEDICARE (WNR) MEDICARE (M) PART A Mar 31, 2012 PART A [id number] [phone] STEVEN ALEXANDRE JR PATIENT MEDICARE (WNR) MEDICARE (M) PART B Mar 31, 2012 PART B [id number] STEVEN ALEXANDRE JR PATIENT MEDICARE PART D (WNR) PRESCRIPT ION PART D May 31, 2012 PART D [id number] [phone] STEVEN ALEXANDRE JR PATIENT MEDICARE PART D (WNR) PRESCRIPT ION PART D May 31, 2012 PART D [id number] STEVEN ALEXANDRE JR PATIENT Selected Encounter This section includes the information on record at NH for the Encounter. Date/Time Encounter Type Encounter Description Reason Provider Source Dec 10, 2024 02:30 PM OFFICE O/P EST HI 40 MIN PRIMARY CARE/MEDICINE ICD-10-CM N18.32 Chronic kidney disease, stage 3b FERMIN MEJIA Leonardo Encounter Template Text not used by NH Assessments - Encounter Diagnoses This section includes the primary and secondary diagnoses documented for the Encounter. Date/Time Primary/Secondary Diagnosis Diagnosis Name Provider Source Dec 10, 2024 03:23 PM PRIMARY Chronic kidney disease, stage 3b FERMIN MEJIA Dec 10, 2024 03:23 PM SECONDARY Chronic combined systolic and diastolic hrt fail FERMIN MEJIA Dec 10, 2024 03:23 PM SECONDARY Essential (primary) hypertension FERMIN MEJIA Dec 10, 2024 03:23 PM SECONDARY Gout, unspecified MEJIAFERMIN [facility] Dec 10, 2024 03:23 PM SECONDARY Other asthma JACKIEFERMIN [facility] Dec 10, 2024 03:23 PM SECONDARY Sleep apnea, unspecified JACKIEFERMIN [facility] Dec 10, 2024 03:23 PM SECONDARY Type 2 diabetes mellitus without complications JACKIEFERMIN Salas [facility] Dec 10, 2024 03:23 PM SECONDARY Unstable angina FERMIN MEJIA [facility] Plan of Treatment: Future Appointments (+ 6 months) and Future Tests (+/- 45 days) The Plan of Treatment section includes [facility] care [facility] the [facility] This section includes future appointments and future orders which are active, pending or scheduled. Future Appointments This section includes appointments that were scheduled to occur 6 months from the date of the Encounter, up to a maximum of 20 appointments. The data comes from all [place] treatment facilities. Appointment Date/Time Appointment Type Appointme nt Facility Name Dec 27, 2024 08:45 AM AMBULATORY [facility] MEDICINE [facility] [place] [facility] Dec 31, 2024 02:00 PM AMBULATORY - PSYCHIATRY [facility] Jan 10, 2025 03:00 PM AMBULATORY - MEDICINE [facility] [place] [facility] Jan 16, 2025 11:30 AM AMBULATORY - PSYCHIATRY [facility] Jan 22, 2025 11:00 AM AMBULATORY - MEDICINE [facility] [place] [facility] Jan 23, 2025 08:30 AM AMBULATORY - NONE [facility] [place] [facility] Jan 23, 2025 09:00 AM AMBULATORY - NONE [facility] [place] [facility] Jan 31, 2025 08:30 AM AM[facility]ULATORY - MEDICINE [facility] Feb 06, 2025 10:30 AM AMBULATORY - MEDICINE [facility] [place] [facility] Feb 12, 2025 08:00 AM AMBULATORY - PSYCHIATRY [facility] March 07, 2025 08:00 AM AMBULATORY - PSY[facility]IATRY [facility] March 12, 2025 10:00 AM AMBULATORY - MEDICINE [facility] [place] [facility] May 14, 2025 02:00 PM AMBULATORY - MEDICINE [facility] Jun 06, 2025 08:30 AM AMBULATORY - MEDICINE [facility] Lab Results: +/- 30 days of the encounter This section includes the Chemistry and Hematology Lab Results on record with NH for the patient. Radiology Reports and Pathology Reports are provided separately, in subsequent sections. Lab Results This section contains the Chemistry/Hematology Results that were resulted 30 days before or 30 daysafter the date of the Encounter. Date/Time Source Result Type Result - Unit Interpretation Reference Range Specimen Type Comment Dec 18, 2024 07:43 AM [facility] CBC AND DIFF (AUTO) BLOOD Specimen Ty pe: BLOOD No comment entered. Ordering Provider: FERMIN MEJIA Report Released Date/Time: Dec 10, 2024 03:08 PM Reporting Lab: [facility] [address] [facility] [address] Performing Lab: [address] [address] WBC 4.46 10*3/uL L 4.50-11.00 RBC 3.84 10*6/uL L 4.23-5.66 HGB 10.6 g/dL L 12.8-17 HCT 32.4 L 39.2-50.4 MCV 84.4 fL 82-99 MCHC 32.7 g/dL 30.8-35.1 PLT 150 10*3/uL 140-360 RDW-CV 15.7 12.0-16.0 MONO, ABS 0.72 10*3/uL 0.30-1.10 MCH 27.6 pg 26.2-32.6 NEUT % 58.6 43.7-75.8 LYMPH % 18.2 14.0-42.3 MONO % 16.1 H 5.1-13.7 EOS % 6.5 0.4-6.8 BASO % 0.4 0.1-2.0 NEUT, ABS 2.61 10*3/uL 2.20-7.60 LYMPH, ABS 0.81 10*3/uL L 1.00-3.20 EOS, ABS 0.29 10*3/uL 0.03-0.44 BASO, ABS 0.02 10*3/uL 0.01-0.13 IMMATURE GRAN % 0.2 0.0-0.7 IMMATURE GRAN, ABS 0.01 10*3/uL 0.00-0.0 6 NRBC % 0.0 0.0-0.0 NRBC, ABS 0.00 10*3/uL 0.00-0.00 Dec 18, 2024 07:43 AM [facility] MAGNESIUM SERUM Sp ecimen Type: SERUM Comment: NOTE CHANGE FROM PREVIOUS RESULTS Ordering Provider: FERMIN MEJIA Report Released Date/Time: Dec 10, 2024 03:08 PM Reporting Lab: [address] [address] Per[facility]: [facility] [address] [address] MAGNESIUM 1.6 mg/dL 1.6-2.6 Dec 18, 2024 07:43 AM [facility] PO4 SERUM Sp ecimen Type: SERUM Comment: NOTE CHANGE FROM PREVIOUS RESULTS Ordering Provider: FERMIN MEJIA Report Released Date/Time: Dec 10, 2024 03:08 PM Reporting Lab: [address] [address] Performing [facility]: [facility] [address] [address] PO4 3.0 mg/dL 2.5-5.0 Dec 18, 2024 07:43 AM [facility] BASIC METABOLIC PANEL (non-fasting) SERUM Specimen Type: SERUM Comment: NOTE CHANGE FROM PREVIOUS RESULTS Ordering Provider: FERMIN MEJIA Report Released Date/Time: Dec 10, 2024 03:08 PM Reporting Lab: [address] [address] Performing Lab: [facility] [address] [address] UREA NITROGEN 45 mg/dL H 7-25 GLUCOSE 98 mg/dL 65-100 SODIUM 139 mmol/L 135-145 POTASSIUM 4.3 mmol/L 3.5-5.0 CHLORIDE 102 mmol/L 100-110 CO2 28 meq/L 20-30 CREATININE, Serum 2.65 mg/dL H 0.50-1.40 eGFR(CKD-EPI 2020) 25 mL/min L >60 Dec 07, 2024 02:41 PM [facility] PSA SERUM Sp ecimen Type: SERUM No comment entered. Ordering Provider: FERMIN MEJIA Report Released Date/Time: Dec 07, 2024 02:39 PM Reporting Lab: [facility] [place] [address] [address] Performing Lab: [facility] [address] [address] PSA 2.57 ng/mL 0.00-4.00 Dec 07, 2024 02:41 PM [facility] VITAMIN D (25-OH) SERUM Specimen Type: SERUM No comment entered. Ordering Provider: FERMIN MEJIA Report Released Date/Time: Dec 07, 2024 02:39 PM Reporting Lab: [facility] [address] [address] Performing [facility]: [facility] [address] [address] VITAMIN D (25-OH) 42 ng/mL 20-50 Dec 07, 2024 02:41 PM [facility] TSH SERUM Sp ecimen Type: SERUM No comment entered. Ordering Provider: FERMIN MEJIA Report Released Date/Time: Dec 07, 2024 02:39 PM Reporting Lab: [facility] [address] [address] Performing Lab: [facility] [address] [address] TSH 0.78 u[IU]/mL 0.35-5.00 Dec 07, 2024 02:41 PM [facility] VITAMIN B12 SERUM Specimen Type: SERUM No comment entered. Ordering Provider: FERMIN MEJIA Report Released Date/Time: Dec 07, 2024 02:39 PM Reporting Lab: [facility] [address] [address] Performing Lab: [facility] [address] [address] VITAMIN B12 1277 pg/mL H 200-900 Dec 07, 2024 02:41 PM [facility] MICROALBUMIN CREATININE RATIO PANEL URINE Specimen Type: URINE No comment entered. Ordering Provider: FERMIN MEJIA Report Released Date/Time: Dec 07, 2024 02:39 PM Reporting Lab: [facility] [address] [address] Performing Lab: [facility] [address] [address] MICROALBUMIN/CREATININE RATIO 85.9 mg/g H 0-29.9 MICROALBUMIN,QUANTITATIVE 6.6 mg/dL RR U NAVAIL CREATININE URINE 76.80 mg/dL Dec 07, 2024 02:41 PM [facility] PT & INR (COUMADIN) PLASMA Specimen Ty pe: PLASMA No comment entered. Ordering Provider: FERMIN MEJIA Report Released Date/Time: Dec 07, 2024 02:39 PM Reporting Lab: [facility] [address] [address] Performing Lab: [address] [address] INR 4.2 PROTIME 44.4 s H 10.0-13.1 Dec 07, 2024 02:41 PM [facility] HEMOGLOBIN A1C PANEL BLOOD Specimen T ype: BLOOD Comment: Values obtained from A1C measurements can vary. For atypical A1C assays, a reported value of 7.0 could actually be between 6.72 and 7.28 if measured by a reference method. A reported value of 9.0 could actually be between 8.73 and 9.27. Ref: http://www.ngsp.org/CAPdata.asp Ordering Provider: FERMIN MEJIA Report Released Date/Time: Dec 07, 2024 02:39 PM Reporting Lab: [facility] [address] [address] Performing Lab: [facility] [address] [address] HEMOGLOBIN A1C 7.1 H 4.0-5.6 Dec 07, 2024 02:41 PM [facility] MAGNESIUM SERUM Sp ecimen Type: SERUM No comment entered. Ordering Provider: FERMIN MEJIA Report Released Date/Time: Dec 07, 2024 02:39 PM Reporting Lab: [address] [address] Performing Lab: [facility] [address] [address] MAGNESIUM 1.5 mg/dL L 1.6-2.6 Dec 07, 2024 02:41 PM [facility] LIPID PANEL FASTING SERUM Specimen Ty pe: SERUM No comment entered. Ordering Provider: FERMIN MEJIA Report Released Date/Time: Dec 07, 2024 02:39 PM Reporting Lab: [address] [address] Performing Lab: [facility] [address] [address] CHOLESTEROL 113 mg/dL TRIGLYCERIDE 117 mg/dL 0-150 LDL calculated 57 mg/dL 0-129 CHOL/HDL 3.4 HDL CHOLESTEROL 33 mg/dL L 40-60 Dec 07, 2024 02:41 PM [facility] CALCIUM SERUM Sp ecimen Type: SERUM No comment entered. Ordering Provider: FERMIN MEJIA Report Released Date/Time: Dec 07, 2024 02:39 PM Reporting Lab: [facility] [address] [address] Performing Lab: [facility] [address] [address] CALCIUM 9.3 mg/dL 8.5-10.2 Dec 07, 2024 02:41 PM [facility] LIVER FUNCTION SERUM Specimen Type: SERUM No comment entered. Ordering Provider: FERMIN MEJIA Report Released Date/Time: Dec 07, 2024 02:39 PM Reporting Lab: [address] [address] Performing Lab: [facility] [address] PROTEIN,TOTAL 6.7 g/dL 6.0-8.3 ALBUMIN 3.3 g/dL L 3.5-5.0 ALKALINE PHOSPHATASE 121 U/L 40-150 AST 23 U/L 5-34 ALT 30 U/L BILIRUBIN, TOTAL 0.4 mg/dL 0.2-1.2 Dec 07, 2024 02:41 PM [facility] BASIC METABOLIC PANEL (fasting) SERUM Specimen Type: SERUM No comment entered. Ordering Provider: FERMIN MEJIA Report Released Date/Time: Dec 07, 2024 02:39 PM Reporting Lab: [address] [address] Performing Lab: [address] [address] UREA NITROGEN 69 mg/dL H 7-25 GLUCOSE 146 mg/dL H 65-100 SODIUM 137 mmol/L 135-145 POTASSIUM 4.8 mmol/L 3.5-5.0 CHLORIDE 103 mmol/L 100-110 CO2 27 meq/L 20-30 CREATININE, Serum 3.47 mg/dL H 0.50-1.40 eGFR(CKD-EPI 2020) 18 mL/min L >60 Dec 07, 2024 02:41 PM [facility] CBC AND DIFF (AUTO) BLOOD Specimen Ty pe: BLOOD No comment entered. Ordering Provider: FERMIN MEJIA Report Released Date/Time: Dec 07, 2024 02:39 PM Reporting Lab: [address] [address] Performing Lab: [address] [address] WBC 4.04 10*3/uL L 4.50-11.00 RBC 3.90 10*6/uL L 4.23-5.66 HGB 10.7 g/dL L 12.8-17 HCT 32.5 L 39.2-50.4 MCV 83.3 fL 82-99 MCHC 32.9 g/dL 30.8-35.1 PLT 203 10*3/uL 140-360 RDW-CV 15.3 12.0-16.0 MONO, ABS 0.67 10*3/uL 0.30-1.10 MCH 27.4 pg 26.2-32.6 NEUT % 61.1 43.7-75.8 LYMPH % 18.1 14.0-42.3 MONO % 16.6 H 5.1-13.7 EOS % 3.2 0.4-6.8 BASO % 0.5 0.1-2.0 NEUT, ABS 2.47 10*3/uL 2.20-7.60 LYMPH, ABS 0.73 10*3/uL L 1.00-3.20 EOS, ABS 0.13 10*3/uL 0.03-0.44 BASO, ABS 0.02 10*3/uL 0.01-0.13 IMMATURE GRAN % 0.5 0.0-0.7 IMMATURE GRAN, ABS 0.02 10*3/uL 0.00-0.0 6 NRBC % 0.0 0.0-0.0 NRBC, ABS 0.00 10*3/uL 0.00-0.00 Vital Signs: All taken on the encounter date This section contains inpatient and outpatient Vital Signs collected on the date of the Encounter. Date/Time Temperature Pulse Blood Pressure Respiratory Rate SP02 Pain Height Weight Body Mass Index Source Dec 10, 2024 02:49 PM 97.9 77 117/64 93 [facility] Social History: Smoking Status (Most current) and Tobacco Use (All prior to encounter date) This section includes the most current, and the historical, smoking and tobacco- related health factors from the NH facility where the Encounter took place. Current Smoking Status This section includes the most current smoking, or tobacco-related health factor, from the NH facility where the Encounter took place. Date/Time Current Smoking Status Comment David craven Jun 18, 2022 09:00 AM NH-TOBACCO QUIT 15 YRS OR MORE [facility] Tobacco Use History This section includes a history of the smoking, or tobacco-related health factors, that were collected on or before the date of the Encounter. The data comes from the NH facility where the Encounter took place. Date/Time Smoking Status/Tobacco Use Comment F kg Jun 18, 2022 09:00 AM VA-TOBACCO QUIT 15 YRS OR MORE [facility] March 20, 2021 02:00 PM VA-TOBACCO FORMER USER [facility] March 20, 2021 02:00 PM VA-TOBACCO QUIT 15 YRS OR MORE [facility] May 25, 2018 08:15 AM VA-TOBACCO FORMER USER [facility] May 25, 2018 08:15 AM VA-TOBACCO QUIT 15 YRS OR MORE [facility] May 10, 2018 04:32 PM CURRENT SMOKER [facility] Oct 28, 2016 12:56 PM QUIT TOBACCO USE > 7 YEARS AGO stopped smoking 20 years ago [facility] Oct 30, 2015 12:58 PM QUIT TOBACCO USE > 7 YEARS AGO [facility] Radiology Reports: +/- 30 days of the encounter Radiology Reports For cases when an order for radiology services may have been completed prior to the date of the Encounter, the report list includes the Radiology Reports that were completed up to 30 days before dateof the Encounter. For cases when an order for radiology services may have been completed after the date of the Encounter, the report list also includes the Radiology Reports that were completed up to30 days after date of the Encounter. The data comes from all NH treatment facilities. Date/Time Radiology Report Provider Source Dec 11, 2024 09:27 AM HIP 2-3 VIEWS (RIG HT) WITH OR WITHOUT PELVIS: CLAUDIA ALEXANDER JR [id number] -[id number] M Exm Date: DEC 11, 2024@09:27 Req Phys: FERMIN MEJIA Loc: [facility] PACT 1 [employer] (Req'g Loc) Img Loc: [facility]BUILDING 1 Service: [place] [address] (Case [id number] COMPLETE) HIP 2-3 VIEWS (RIGHT) WITH OR WIT(RAD Detailed) CPT:11426 CPT Modifiers : RT RIGHT SIDE Reason for Study: Right hip pain Clinical History: HFrEF Report Status: Verified Date Reported: DEC 11, 2024 Date Verified: DEC 11, 2024 Data Processing Specialist E-Sig:/ES/DARRELL JONES JR Report: Study: AP view of the pelvis with frogleg lateral view of the right hip. Comparison: Hip radiographs from January 02, 2016. Findings: The bony mineralization is normal. The patient is again status post bilateral total hip replacements. The prosthetic components appear intact and without evidence of loosening. Heterotopic bone formation in both hip joint spaces appears similar. The pelvic bones are intact. Pelvic phleboliths are present. Trace vascular calcifications in the proximal thighs. No suspicious bone lesions. No acute bony abnormality is identified. Impression: No acute abnormality identified. Primary Diagnostic Code: No immediate attention required Primary Interpreting Staff: DARRELL JONES JR, Radiologist (Data Processing Specialist) /DARRELL SMITH JR [employer] [facility] Encounter Notes: All associated encounter notes This section contains the clinical notes associated to the Encounter. Date/Time Encounter Note(s) Provider Source Jan 16, 2025 05:47 PM ADDENDUM: LOCAL TITLE: Addendum STANDARD TITLE: ADDENDUM DATE OF NOTE: JAN 16, 2025@17:47:41 ENTRY DATE: JAN 16, 2025@17:47:41 AUTHOR: FERMIN MEJIA COSIGNER: URGENCY: STATUS: COMPLETED I called and spoke with the patient regarding most recent lab results showing improvement in renal function after a 3-day pause of torsemide. States he has been drinking a little more water. eGFR improved to 25 from 18 and SCr improved to baseline 2.65 from 3.47. Hb/HCT stable. Further reports he did not tolerate isosorbide and stopped taking it after 1 dose. No dizziness or vertigo but states he just did not feel right. It has been DC'd. /clint/ FERMIN MEJIA NP NURSE PRACTITIONER Signed: 01/16/2025 17:50 Receipt Acknowledged By: 01/17/2025 08:54 /clint/ MARY KAY BELTRAN REGISTERED NURSE ======== --- Original Document --- 12/10/24 NURSE PRACTITIONER OUTPATIENT NOTE: PRIMARY CARE VISIT CLAUDIA ALEXANDRE, is a 69 yo BLACK OR MALE [place] who [facility]. TYPE OF VISIT: Face to face 69-year-old gentleman with an extensive past medical history including combined systolic and diastolic CHF, CKD stage IIIb, anemia of chronic disease, DM2, gout, HTN, HLD, SILVIA on BiPAP dependent on overnight oxygen, mechanical heart valve, and paroxysmal atrial fibrillation presented to the outpatient clinic in regular follow-up. He is comanaged with a community PCP who writes most of his prescriptions and follows labs. Cardiology told him he was not a transplant candidate. Complains of left-sided chest pain every day. No concomitant dyspnea, sweating, nausea. Complains of worsening right hip pain for several months. No trauma. Recent labs reviewed with the Garner noting worsening overall renal function with SCr now 3.4 and EGFR 18. Baseline SCr 2.4-2.8. BUN elevated to 69. Mildly low Mg at 1.5. All medications were reconciled during this visit. HEALTHCARE PROVIDERS: Community PCP: Josiah Akers at [facility] Pulmonology: Dr. Lala, [facility] Cardiology: OSWALDO Elliott Ortho: [facility] General surgery: OSWALDO Nephrology: Dr. Ham PT: [facility] Chiro: [facility] Social Hx: is and lives with his . He stopped smoking in 1998. No alcohol or MJ. 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 No regular exercise due to baseline poor functional status. HISTORY: PERIOD OF SERVICE - [employer] FROM Apr TO Dec COMBAT SERVICE INDICATED: No MEDICAL HISTORY Active Problem Chronic combined systolic and diast 08/07/2024 FERMIN MEJIA Outside providers R69. 04/23/2024 FERMIN MEJIA Contusion S70.01XS 04/01/2023 RIZWANA MARTINES Contusion of right shoulder S40.011 04/01/2023 RIZWANA MARTINES CHF - Congestive Heart Failure (SCT 04/23/2024 RIZWANA MARTINES Anaemia due to blood loss D62. 09/28/2022 RIZWANA MARTINES Chronic Kidney Disease Stage 3B (SC 04/23/2024 RIZWANA MARTINES Tubular adenoma D13.1 06/18/2022 FLORES LOCKWOOD Ex-smoker Z87.891 04/02/2022 FLORES LOCKWOOD Erectile dysfunction N52.9 12/14/2021 FLORES LOCKWOOD Microscopic hematuria R31.29 12/14/2021 FLORES LOCKWOOD Sleep apnea G47.30 04/23/2024 FLORES LOCKWOOD Lower urinary tract symptoms due to 04/06/2021 FLORES LOCKWOOD Long-term current use of anticoagul 10/27/2023 LETICIA ZHENG Gout M10.9 06/18/2022 FLORES LOCKWOOD Onychomycosis of toenails B35.1 05/25/2018 CLAUDIA RASHEED Chronic post-traumatic stress disor 07/11/2017 KB THORNTON Cardiac pacemaker in situ R69. 11/08/2016 ALEXDENISFLORES Asthma J45.998 10/30/2015 IZABELA HOLLAND Benign hypertension I10. 10/30/2015 IZABELA HOLLAND Heart disease I51.9 10/30/2015 IZABELA HOLLAND Low back pain M54.5 10/30/2015 IZABELA HOLLAND Diabetes mellitus E11.9 10/30/2015 IZABELA HOLLAND VITAL SIGNS: Temperature 97.9 F [36.6 C] (12/10/2024 14:49) Blood Pressure 117/64 (12/10/2024 14:49) Pulse 77 (12/10/2024 14:49) Respiration 18 (09/25/2024 13:45) Pain 1 (09/25/2024 13:45) BMI BMI: 0.0 Weight Refused (12/10/2024 14:49) Pulse Oximetry 93% (12/10/2024 14:49) ASSISTIVE DEVICES: None REVIEW OF SYSTEMS: CONSTITUTIONAL: No fevers, chills, weight loss/gain ENT: No sore throat, sneezing, congestion, rhinorrhea, anosmia, or ageusia. CARDIOVASCULAR: No chest pain, palpitations, or increased pedal edema RESPIRATORY: No SOB, cough, sputum, wheeze. GASTROINTESTINAL: Denies abd pain, N/V/D. No melena or hematochezia. No tenesmus or constipation. GENITOURINARY: No burning micturition. No urinary frequency or urgency. No nocturia. MUSCULOSKELETAL: No myalgias or arthralgias. PSYCHIATRIC: No new anxiety or depression. No sleep disturbance. NEUROLOGIC: No headaches, dizziness, numbness or tingling in the extremities, or unilateral weakness. EXAMINATION General: Well-appearing Garner in no obvious distress. Mental Status: Alert and oriented x4. Head: Normocephalic. Eyes: PERRLA. EOMI. Anicteric sclerae. ENT: Moist oral mucosa. Edentulous. No dentures. Neck: Supple. No JVD. No thyromegaly. Lungs: CTA. Normal chest excursion. No accessory muscle use. CV: Heart tones S1, S2. RRR. No M/G/R. No peripheral edema GI: Obese abdomen is soft and nontender. No palpable mass. : No CVA tenderness. Ext: No cyanosis or clubbing. No gross deformities. Neuro: CN II through XII grossly intact. Normal speech. Normal gait. Integument: Skin warm and dry. No concerning lesions or rashes. Psych: Normal mood and affect. Normal judgment. ALLERGIES: ========= PENICILLIN, SPIRONOLACTONE >> HEALTH MAINTENANCE PREVENTIVE MEDICINE GOALS Info Only: [facility] Connect Capable DUE NOW Advance Directive Screen AD Apr 13 Assess Statin Use - Lipids (CVD/DM) DUE NOW Home Telehealth (CCHT) Referral DUE NOW Mental Health Treatment Plan DUE NOW Influenza Immunization DUE NOW Medication Reconciliation DUE NOW RSV Immunization DUE NOW (Optional) Whole Health Documentation DUE NOW ASSESSMENT/PLAN: Active problems - Computerized Problem List is the source for the following: Chronic combined systolic and diastolic heart failure: HFrEF followed by [facility] cardiology and maintained on beta-jossue, CCB, statin, torsemide, and spironolactone. Noted listed allergy to spironolactone but the states he has been tolerating this medication for years. No recent medication changes. Chronic Kidney Disease Stage 3B (SCT [id number]): As noted in HPI, serum creatinine above baseline at 3.4 with EGFR 18. States he rarely drinks any water and urine has been concentrated of late. Agrees to drink more water and decrease torsemide to 20 mg twice daily for 3 days then resume usual dose. Recheck CMP in 1 week. He agrees with the plan. Sleep apnea: Uses CPAP intermittently. Does not tolerate it well. Gout: No longer maintained on allopurinol given decreased renal function. No recent flares for at least a year. Reviewed low purine diet. Asthma: Stable with no recent flares. Never hospitalized for asthma exacerbation. Benign hypertension: Blood pressure within target today. Continue amlodipine, carvedilol, torsemide, and spironolactone prescribed by multiple outside providers. Diabetes mellitus: HbA1c 7.1%, a little higher than previous. Will work on his diet. Not maintained on any antihyperglycemic medications. Reviewed diabetic diet in detail. Unstable angina: He complains of daily chest pain. Agrees to a trial of low- dose isosorbide 30 mg daily. Reviewed potential side effects including dizziness. If he experiences any side effects he knows to stop taking. FOLLOW UP: RTC Below & sooner PRN UPCOMING APPOINTMENTS: 12/27/2024 08:45 [facility] ACUPUNCTURE GRP 12/31/2024 14:00 CWM/SO/MHC/JUAN RAEOCOU 01/23/2025 08:30 [facility] DENTAL RDH 1 AM 01/31/2025 08:30 [facility] PODIATRY 1 05/14/2025 14:[address] [facility] PACT 1 [employer] 50 minutes spent in patient evaluation, data review, and patient education. All medications were reconciled during this visit. No barriers; Patient understands and agrees to current treatment plan. If pt has any questions, concerns, or changes in current health status he/she will call or come [facility] to the [facility]. Assess Statin Use - Lipids (CVD/DM): The patient is still taking the NON-VA statin medication as documented. Medication Reconciliation: Outpatient: Has the patient been taking medications as documented in the EMLR? YES: The patient has been taking medications as documented in the EMLR. Essential Medication List for Review used to complete this medication reconciliation. INCLUDED IN THIS LIST: Alphabetical list of active outpatient prescriptions dispensed from this [facility] (local) and dispensed from another [facility] or [facility] facility (remote) as well as inpatient orders [...] whether with a VA or non-VA provider. Of note, the patient refused RSV immunization. /clint/ FERMIN MEJIA NP NURSE PRACTITIONER Signed: 12/10/2024 15:22 12/19/2024 ADDENDUM STATUS: COMPLETED Called and discussed elevated INR to 4.4. [place] is aware and has been coordinating with the Coumadin clinic through his community PCP who has decreased his warfarin dose. Denies any hematochezia or melena. /garcia MEJIA NP NURSE PRACTITIONER Signed: 12/19/2024 11:08 FERMIN MEJIAFIELD Dec 10, 2024 03:08 PM PRIMARY CARE NURSE PRACTITIONER OUTPATIENT NOTE: LOCAL TITLE: NURSE PRACTITIONER OUTPATIENT NOTE STANDARD TITLE: PRIMARY CARE NURSE PRACTITIONER OUTPATIENT NOTE DATE OF NOTE: DEC 10, 2024@15:08 ENTRY DATE: DEC 10, 2024@15:08:49 AUTHOR: FERMIN MEJIA EXP COSIGNER: URGENCY: STATUS: COMPLETED NURSE PRACTITIONER OUTPATIENT NOTE Has ADDENDA PRIMARY CARE VISIT CLAUDIA HORNE BALDOMERO, is a 69 yo BL[place] MALE who [facility]. TYPE OF VISIT: Face to face 69-year-old gentleman with an extensive past medical history including combined systolic and diastolic CHF, CKD stage IIIb, anemia of chronic disease, DM2, gout, HTN, HLD, SILVIA on BiPAP dependent on overnight oxygen, mechanical heart valve, and paroxysmal atrial fibrillation presented to the outpatient clinic in regular follow-up. He is comanaged with a community PCP who writes most of his prescriptions and follows labs. Cardiology told him he was not a transplant candidate. Complains of left-sided chest pain every day. No concomitant dyspnea, sweating, nausea. Complains of worsening right hip pain for several months. No trauma. Recent labs reviewed with the noting worsening overall renal function with SCr now 3.4 and EGFR 18. Baseline SCr 2.4-2.8. BUN elevated to 69. Mildly low Mg at 1.5. All medications were reconciled during this visit. HEALTHCARE PROVIDERS: Community PCP: Josiah Akers at [facility] Pulmonology: Dr. Lala, [facility] Cardiology: OSWALDO Elliott Ortho: NEOSilvia General surgery: OSWALDO Nephrology: Dr. Ham PT: [facility] Chiro: [facility] Social Hx: is and lives with his . He stopped smoking in 1998. No alcohol or MJ. 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 No regular exercise due to baseline poor functional status. HISTORY: PERIOD OF SERVICE - [employer] FROM Apr TO Dec COMBAT SERVICE INDICATED: No MEDICAL HISTORY Active Problem Chronic combined systolic and diast 08/07/2024 FERMIN MEJIA Outside providers R69. 04/23/2024 FERMIN MEJIA Contusion S70.01XS 04/01/2023 RIZWANA MARTINES Contusion of right shoulder S40.011 04/01/2023 RIZWANA MARTINES CHF - Congestive Heart Failure (SCT 04/23/2024 RIZWANA MARTINES Anaemia due to blood loss D62. 09/28/2022 RIZWANA MARTINES Chronic Kidney Disease Stage 3B (SC 04/23/2024 RIZWANA MARTINES Tubular adenoma D13.1 06/18/2022 FLORES LOCKWOOD Ex-smoker Z87.891 04/02/2022 FLORES LOCKWOOD Erectile dysfunction N52.9 12/14/2021 FLORES LOCKWOOD Microscopic hematuria R31.29 12/14/2021 FLORES LOCKWOOD Sleep apnea G47.30 04/23/2024 FLORES LOCKWOOD Lower urinary tract symptoms due to 04/06/2021 FLORES LOCKWOOD Long-term current use of anticoagul 10/27/2023 LETICIA ZHENG Gout M10.9 06/18/2022 FLORES LOCKWOOD Onychomycosis of toenails B35.1 05/25/2018 CLAUDIA RASHEED Chronic post-traumatic stress disor 07/11/2017 KB THORNTON Cardiac pacemaker in situ R69. 11/08/2016 ALEXCruzitoFLORES NOE Asthma J45.998 10/30/2015 IZABELA HOLLAND Benign hypertension I10. 10/30/2015 IZABELA HOLLAND Heart disease I51.9 10/30/2015 IZABELA HOLLAND Low back pain M54.5 10/30/2015 IZABELA HOLLAND Diabetes mellitus E11.9 10/30/2015 IZABELA HOLLAND VITAL SIGNS: Temperature 97.9 F [36.6 C] (12/10/2024 14:49) Blood Pressure 117/64 (12/10/2024 14:49) Pulse 77 (12/10/2024 14:49) Respiration 18 (09/25/2024 13:45) Pain 1 (09/25/2024 13:45) BMI BMI: 0.0 Weight Refused (12/10/2024 14:49) Pulse Oximetry 93% (12/10/2024 14:49) ASSISTIVE DEVICES: None REVIEW OF SYSTEMS: CONSTITUTIONAL: No fevers, chills, weight loss/gain ENT: No sore throat, sneezing, congestion, rhinorrhea, anosmia, or ageusia. CARDIOVASCULAR: No chest pain, palpitations, or increased pedal edema RESPIRATORY: No SOB, cough, sputum, wheeze. GASTROINTESTINAL: Denies abd pain, N/V/D. No melena or hematochezia. No tenesmus or constipation. GENITOURINARY: No burning micturition. No urinary frequency or urgency. No nocturia. MUSCULOSKELETAL: No myalgias or arthralgias. PSYCHIATRIC: No new anxiety or depression. No sleep disturbance. NEUROLOGIC: No headaches, dizziness, numbness or tingling in the extremities, or unilateral weakness. EXAMINATION General: Well-appearing in no obvious distress. Mental Status: Alert and oriented x4. Head: Normocephalic. Eyes: PERRLA. EOMI. Anicteric sclerae. ENT: Moist oral mucosa. Edentulous. No dentures. Neck: Supple. No JVD. No thyromegaly. Lungs: CTA. Normal chest excursion. No accessory muscle use. CV: Heart tones S1, S2. RRR. No M/G/R. No peripheral edema GI: Obese abdomen is soft and nontender. No palpable mass. : No CVA tenderness. Ext: No cyanosis or clubbing. No gross deformities. Neuro: CN II through XII grossly intact. Normal speech. Normal gait. Integument: Skin warm and dry. No concerning lesions or rashes. Psych: Normal mood and affect. Normal judgment. ALLERGIES: ========= PENICILLIN, SPIRONOLACTONE >> HEALTH MAINTENANCE PREVENTIVE MEDICINE GOALS Info Only: [facility] Video Connect Capable DUE NOW Advance Directive Screen AD Apr 13 Assess Statin Use - Lipids (CVD/DM) DUE NOW Home Telehealth ([facility]) Referral DUE NOW Mental Health Treatment Plan DUE NOW Influenza Immunization DUE NOW Medication Reconciliation DUE NOW RSV Immunization DUE NOW (Optional) Whole Health Documentation DUE NOW ASSESSMENT/PLAN: Active problems - Computerized Problem List is the source for the following: Chronic combined systolic and diastolic heart failure: HFrEF followed by [facility] cardiology and maintained on beta-jossue, CCB, statin, torsemide, and spironolactone. Noted listed allergy to spironolactone but the states he has been tolerating this medication for years. No recent medication changes. Chronic Kidney Disease Stage 3B (SCT [id number]): As noted in HPI, serum creatinine above baseline at 3.4 with EGFR 18. States he rarely drinks any water and urine has been concentrated of late. Agrees to drink more water and decrease torsemide to 20 mg twice daily for 3 days then resume usual dose. Recheck CMP in 1 week. He agrees with the plan. Sleep apnea: Uses CPAP intermittently. Does not tolerate it well. Gout: No longer maintained on allopurinol given decreased renal function. No recent flares for at least a year. Reviewed low purine diet. Asthma: Stable with no recent flares. Never hospitalized for asthma exacerbation. Benign hypertension: Blood pressure within target today. Continue amlodipine, carvedilol, torsemide, and spironolactone prescribed by multiple outside providers. Diabetes mellitus: HbA1c 7.1%, a little higher than previous. Will work on his diet. Not maintained on any antihyperglycemic medications. Reviewed diabetic diet in detail. Unstable angina: He complains of daily chest pain. Agrees to a trial of low- dose isosorbide 30 mg daily. Reviewed potential side effects including dizziness. If he experiences any side effects he knows to stop taking. FOLLOW UP: RTC Below & sooner PRN UPCOMING APPOINTMENTS: 12/27/2024 08:45 [facility] ACUPUNCTURE GRP 12/31/2024 14:00 CWM/SO/MHC/JUAN VINOCOU 01/23/2025 08:30 [facility] DENTAL RDH 1 AM 01/31/2025 08:30 [facility] PODIATRY 1 05/14/2025 14:00 [facility] PACT 1 [employer] 50 minutes spent in patient evaluation, data review, and patient education. All medications were reconciled during this visit. No barriers; Patient understands and agrees to current treatment plan. If pt has any questions, concerns, or changes in current health status he/she will call or come in to the [facility]. Assess Statin Use - Lipids (CVD/DM): The patient is still taking the NON-VA statin medication as documented. Medication Reconciliation: Outpatient: Has the patient been taking medications as documented in the EMLR? YES: The patient has been taking medications as documented in the EMLR. Essential Medication List for Review used to complete this medication reconciliation. INCLUDED IN THIS LIST: Alphabetical list of active outpatient prescriptions dispensed from this [facility] (local) and dispensed from another [facility] or [facility] facility (remote) as well as inpatient orders [...] whether with a VA or non-VA provider. Of note, the patient refused RSV immunization. /garcia MEJIA NP NURSE PRACTITIONER Signed: 12/10/2024 15:22 12/19/2024 ADDENDUM STATUS: COMPLETED Called and discussed elevated INR to 4.4. [place] is aware and has been coordinating with the Coumadin clinic through his community PCP who has decreased his warfarin dose. Denies any hematochezia or melena. /garcia MEJIA NP NURSE PRACTITIONER Signed: 12/19/2024 11:08 01/16/2025 ADDENDUM STATUS: COMPLETED I called and spoke with the patient regarding most recent lab results showing improvement in renal function after a 3-day pause of torsemide. States he has been drinking a little more water. eGFR improved to 25 from 18 and SCr improved to baseline 2.65 from 3.47. Hb/HCT stable. Further reports he did not tolerate isosorbide and stopped taking it after 1 dose. No dizziness or vertigo but states he just did not feel right. It has been DC'd. /garcia MEJIA NP NURSE PRACTITIONER Signed: 01/16/2025 17:50 Receipt Acknowledged By: * AWAITING SIGNATURE * MARY KAY BELTRAN DAVID A [place]
--- OUTSIDE RECORDS SUMMARY | 2025-02-13 11:26 | XMS_ITS | Encounter Summary ---
Author Name [facility] [place] [facility] [place] Address [address] [place] [address] Care Team Providers Care Rv Mechanic Name Role Phone FERMIN MEJIA Primary Care [...] Name Patient's Relationship to Policy Mendiola [facility] ([facility]) MEDICARE ADVANTAGE [facility] ([facility]) Jul 31, 2017 [id number] [id number] STEVEN ALEXANDRE JR S PATIENT MEDICARE ([facility]) MEDICARE (M) PART A Mar 31, 2012 PART A [id number] STEVEN ALEXANDRE JR S PATIENT MEDICARE (WNR) MEDICARE (M) PART B Mar 31, 2012 PART B [id number] BALDOMERO HORNESTEVEN S PATIENT MEDICARE (WNR) MEDICARE (M) PART A Mar 31, 2012 PART A [id number] STEVEN ALEXANDRE JR S PATIENT MEDICARE ([facility]) MEDICARE (M) PART B Mar 31, 2012 PART B [id number] STEVEN ALEXANDRE JR PATIENT MEDICARE (WNR) MEDICARE (M) PART A Mar 31, 2012 PART A [id number] [phone] STEVEN ALEXANDRE JR S PATIENT MEDICARE (WNR) MEDICARE (M) PART B Mar 31, 2012 PART B [id number] STEVEN ALEXANDRE JR S PATIENT MEDICARE (WNR) MEDICARE (M) PART A Mar 31, 2012 PART A [id number] STEVEN ALEXANDRE JR S PATIENT MEDICARE (WNR) MEDICARE (M) PART B Mar 31, 2012 PART B [id number] [phone] STEVEN ALEXANDRE JR S PATIENT MEDICARE (WNR) MEDICARE (M) PART A Mar 31, 2012 PART A [id number] STEVEN ALEXANDRE JR S PATIENT MEDICARE (WNR) MEDICARE (M) PART B Mar 31, 2012 PART B [id number] STEVEN ALEXANDRE JR PATIENT MEDICARE PART D (WNR) PRESCRIPT ION PART D May 31, 2012 PART D [id number] [phone] STEVEN ALEXANDRE JR PATIENT MEDICARE PART D (WNR) PRESCRIPT ION PART D May 31, 2012 PART D [id number] STEVEN ALEXANDRE JR PATIENT Selected Encounter This section includes the information on record at [place] for the Encounter. Date/Time Encounter Type Encounter Description Reason Provider Source May 16, 2024 08:30 AM OFFICE O/P EST LOW 20 MIN PODIATRY ICD-10-CM L60.3 Nail dystrophy CLAUDIA RASHEED Leonardo Encounter Template Text not used by [place] Assessments - Encounter Diagnoses This section includes the primary and secondary diagnoses documented for the Encounter. Date/Time Primary/Secondary Diagnosis Diagnosis Name Provider Source May 16, 2024 08:49 AM PRIMARY Nail dystrophy CLAUDIA RASHEED May 16, 2024 08:49 AM SECONDARY Pain in left toe(s) CLAUDIA RASHEED May 16, 2024 08:49 AM SECONDARY Pain in right toe(s) CLAUDIA RASHEED May 16, 2024 08:49 AM SECONDARY Type 2 diabetes w diabetic peripheral angiopath w/o gangrene CLAUDIA RASHEED [facility] Plan of Treatment: Future Appointments (+ 6 months) and Future Tests (+/- 45 days) The Plan of Treatment section includes future care activities for the [place] from all [place] [facility]. This section includes future appointments and future orders which are active, pending or scheduled. Future Appointments This section includes appointments that were scheduled to occur 6 months from the date of the Encounter, up to a maximum of 20 appointments. The data comes from all [place] treatment facilities. Appointment Date/Time Appointment Type Appointme nt Facility Name Jul 24, 2024 01:00 PM AMBULATORY - NONE [facility] Jul 27, 2024 08:00 AM AMBULATORY - REHAB [facility] Aug 02, 2024 09:30 AM AMBULATORY - MEDICINE [facility] [place] [facility] Aug 02, 2024 02:30 PM AMBULATORY - MEDICINE [facility] Aug 03, 2024 09:00 AM AMBULATORY - REHAB [facility]ICIN [facility] Aug 06, 2024 10:00 AM AMBULATORY - PSYCHIATRY [facility] Aug 06, 2024 03:30 PM AMBULATORY - REHAB MEDICIN [facility] Aug 10, 2024 10:00 AM AMBULATORY - REHAB [facility]ICIN [facility] Aug 16, 2024 07:30 AM AMBULATORY - [facility]AB [facility] Aug 21, 2024 09:[facility], [facility] 07:30 AM [facility] - [facility] Aug 28, 2024 08:30 AM AMBULATORY - MEDICINE [facility] [place] [facility] Sep 03, 2024 07:30 AM AMBULATORY - REHAB [facility]ICIN [facility] Sep 03, 2024 09:00 AM AMBULATORY - PSYCHIATRY [facility] Sep 12, 2024 10:00 AM AMBULATORY - MEDICINE [place] [facility] [place] [facility] Sep 13, 2024 07:30 AM AMBULATORY - REHAB [facility]ICIN [facility] Sep 19, 2024 09:00 AM AMBULATORY - MEDICINE [facility] [place] [facility] Sep 21, 2024 07:30 AM AMBULATORY - RE[facility]AB MEDICIN [facility] Sep 21, 2024 09:30 AM AMBULATORY - MEDICINE [facility] [place] [facility] Sep 24, 2024 02:00 PM [facility]ULATORY - [facility]INE [facility] Active, Pending, and Scheduled Orders This section includes a listing of several types of active, pending, and scheduled orders, including clinic medications orders, diagnostic test orders, procedure orders and consult orders; where the start date of the order is 45 days before the date of the Encounter or 45 days after the date of theEncounter. The data comes from all [place] treatment facilities. Test Date/Time Test Type Test Details Facility Name Apr 20, 2024 12:00 AM Laboratory - Chemi stry Order BASIC METABOLIC PANEL (fasting) BLOOD (SST-SERUM) [facility] Apr 20, 2024 12:00 AM Laboratory - Chemi stry Order LIPID PANEL FASTING BLOOD (SST-SERUM) [facility] Apr 20, 2024 12:00 AM Laboratory - Chemi stry Order LIVER FUNCTION BLOOD (SST-SERUM) [facility] Apr 20, 2024 12:00 AM Laboratory - Chemi stry Order HEMOGLOBIN A1C PANEL BLOOD (LAV-BLOOD) [facility] Apr 20, 2024 12:00 AM Laboratory - Chemi stry Order VITAMIN D (25-OH) BLOOD (SST-SERUM) [facility] Apr 20, 2024 12:00 AM Laboratory - Chemi stry Order CBC BLOOD (LAV-BLOOD) [facility] Social History: Smoking Status (Most current) and Tobacco Use (All prior to encounter date) This section includes the most current, and the historical, smoking and tobacco- related health factors from the [place] facility where the Encounter took place. Current Smoking Status This section includes the most current smoking, or tobacco-related health factor, from the [place] facility where the Encounter took place. Date/Time Current Smoking Status Comment Facil ity Jun 18, 2022 09:00 AM IN-TOBACCO QUIT 15 YRS OR MORE [facility] Tobacco Use History This section includes a history of the smoking, or tobacco-related health factors, that were collected on or before the date of the Encounter. The data comes from the [place] facility where the Encounter took place. Date/Time Smoking Status/Tobacco Use Comment F acility Jun 18, 2022 09:00 AM IN-TOBACCO QUIT 15 YRS OR MORE [facility] March 20, 2021 02:00 PM VA-TOBACCO FORMER USER [facility] March 20, 2021 02:00 PM VA-TOBACCO QUIT 15 YRS OR MORE [facility] May 25, 2018 08:15 AM VA-TOBACCO FORMER USER [facility] May 25, 2018 08:15 AM VA-TOBACCO QUIT 15 YRS OR MORE [facility] May 10, 2018 04:32 PM [facility] Oct 28, 2016 12:56 PM QUIT TOBACCO USE > 7 YEARS AGO stopped smoking 20 years ago [facility] Oct 30, 2015 12:58 PM QUIT TOBACCO USE > 7 YEARS AGO [facility] Encounter Notes: All associated encounter notes This section contains the clinical notes associated to the Encounter. Date/Time Encounter Note(s) Provider Source May 16, 2024 07:26 AM PODIATRY NOTE: LOCAL TITLE: PODIATRY NOTE STANDARD TITLE: PODIATRY NOTE DATE OF NOTE: MAY 16, 2024@07:26 ENTRY DATE: MAY 16, 2024@07:26:11 AUTHOR: CLAUDIA RASHEED COSIGNER: URGENCY: STATUS: COMPLETED RECEIVED BOTH COVID DOSES FROM [facility] AND PROVIDED HIS CARD FOR COPYING AT [facility] FOR MEDICAL RECORDS-RECEIVED 3 BOOSTERS LAST SEEN FOR TREATMENT: 02/08/2024 S: Pt. is a 69 yo alert [...] TEMPLATE FOR COMPLETE LIST NEEDED. A1c = 6.4 (LAST TAKEN: 09/2023-[facility]?) CCI=[id number] RISK=2 HEIGHT: 61 in [154.9 cm] (03/02/2016 [...] present physical-medical status. Protective sensation utilizing a [place]-Melony lOg monofilament is 10/10 bilateral. ABOVE Exams are reviewed and noted to be unchanged since previous visit & determined to be non-contributory to the cc other than in areas of hyperkeratosis. A: Clinical Impression: Painful onychocryptic nails as [...] due to the underlying medical condition. RTC 24 WEEKS ( 09/26 @8:30AM)) *NOTE: REVIEWED HOME FOOT CARE FEET ARE IN EXCELLENT CONDITION AND I PROVIDED WRITTEN RECOMMENDATIONS FOR CONTINUED HOME CARE ( FOOT CARE TIPS) *DISCUSSED NEW PROTOCOLS AND CALLED [facility] TODAY FOR RESCHEDULING I DISCUSSED THE FINDINGS & PLAN WITH PATIENT (UNCHANGED SINCE PREVIOUS VISIT) & PATIENT AGREES AND UNDERSTANDS PLAN & RECEIVED NEW MIRROR DISCUSSED HIS SLOW RECOVERY FROM LEFT KNEE REPLACEMENT WITH SEVERAL MORE MONTHS TO GO BUT HE IS PAIN FREE AND ABLE TO AMBULATE WITH OUT ASSISTANCE Medication Reconciliation: PERFORMED TODAY - SEE BELOW. Outpatient: Has the patient been taking medications as documented in the EMLR? YES: The patient has been taking medications as documented in the EMLR. Essential Medication List for Review used to complete this medication reconciliation. INCLUDED IN THIS LIST: Alphabetical list of active outpatient prescriptions dispensed from this [place] (local) and dispensed from another [place] or DoD facility (remote) as well as [...] JLV. Allergies/ADRs (Tool #5) FACILITY ALLERGY/ADR -------- [facility] ACETAMINOPHEN/OXYCODONE [facility] PENICILLIN [facility] [place]ONE [facility] ACETAMINOPHEN/OXYCODONE [facility] PENICILLIN Med Recon NoGlossary (Tool #1) INCLUDED IN THIS LIST: Alphabetical list of active outpatient prescriptions dispensed from this [place] (local) and dispensed from another [place] or DoD facility (remote) as well as inpatient orders (local pending and active), local clinic medications, locally documented non-VA medications, and local prescriptions that have or been discontinued in the past 90 days. Non-VA Meds Last Documented On: Apr 23, 2024 NOTE The display of VA prescriptions dispensed from another [place] or [facility] facility (remote) is limited to active outpatient prescription entries matched to National Drug File at the originating site and may not include some items such as investigational drugs, compounds, etc. NOT INCLUDED IN THIS LIST: Medications self-entered by the patient into personal health records (i.e. [employer]) are NOT included in this list. Non-VA medications documented outside this [place], remote inpatient orders (regardless of status) and [...] DAILY Medication prescribed by Non-VA provider. Non-VA ASPIRIN 81MG EC TAB TAKE ONE TABLET BY MOUTH DAILY Medication prescribed by Non-VA provider. Non-VA ATORVASTATIN CALCIUM 80MG TAB TAKE ONE-HALF TABLET BY MOUTH AT BEDTIME Medication prescribed by Non-VA provider. OUTPT CARBOXYMETHYLCELLULOSE NA 0.5% OPH SOLN (Status = Active) INSTILL 1 DROP INTO EACH EYE FOUR TIMES A DAY FOR DRY EYE Rx# [id number] Last Released: 06/02/23 Qty/Days Supply: Rx Expiration Date: 05/31/24 Refills Remainin Indication: FOR DRY EYE Non-VA CARVEDILOL 25MG TAB TAKE ONE TABLET BY MOUTH TWICE DAILY Medication prescribed by Non-VA provider. OUTPT CEPHALEXIN 500MG CAP (Status = Active) TAKE FOUR CAPSULES BY MOUTH ONE TIME FOR INFECTION Rx# [id number] Last Released: 04/25/24 Qty/Days Supply: 01/29 Rx Expiration Date: 05/25/24 Refills Remainin Indication: FOR INFECTION CAUSED BY BACTERIA OUTPT DICLOFENAC NA 1% TOP GEL (Status = ) APPLY 2 GRAMS TOPICALLY FOUR TIMES DAILY NEEDED FOR OSTEOARTHRITIS - USE DOSING CARD PROVIDED IN BOX Rx# [id number] Last Released: 04/13/23 Qty/Days Supply: Rx Expiration Date: 04/13/24 Refills Remainin Indication: FOR JOINT PAIN Non-VA FERROUS GLUCONATE 324MG TAB TAKE ONE TABLET BY MOUTH ONCE DAILY Medication prescribed by Non-VA provider. Non-VA FLUTICASONE PROP 220MCG 120D ORAL INHL INHALE 2 PUFFS BY MOUTH TWICE DAILY Medication prescribed by Non-VA provider. Non-VA INSULIN,GLARGINE (LANTUS) INJ INJECT 15 UNITS SUBCUTANEOUSLY ONCE DAILY Medication prescribed by Non-VA provider. 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
--- OUTSIDE RECORDS SUMMARY | 2025-02-13 11:27 | XMS_ITS | Encounter Summary ---
Author Name [facility] [place] [facility] [place] [facility] [place] Address [address] [place] [address] Care Team Providers Care Pail Bailer Name Role Phone FERMIN MEJIA Primary Care [...] Mendiola's Name Patient's Relationship to Policy Mendiola [facility] ([facility]) MEDICARE ADVANTAGE [facility] ([facility]) Jul 31, 2017 [id number] STEVEN ALEXANDRE JR S PATIENT MEDICARE ([facility]) MEDICARE () PART A Mar 31, 2012 PART A [id number] STEVEN ALEXANDRE JR S PATIENT MEDICARE (WN) MEDICARE () PART B Mar 31, 2012 PART B [id number] STEVEN ALEXANDRE JR S PATIENT MEDICARE (WN) MEDICARE () PART A Mar 31, 2012 PART A [id number] STEVEN ALEXANDRE JR S PATIENT MEDICARE (WNR) MEDICARE (M) PART B Mar 31, 2012 PART B [id number] STEVEN ALEXANDRE JR S PATIENT MEDICARE (WNR) MEDICARE (M) PART A Mar 31, 2012 PART A [id number] STEVEN ALEXANDRE JR S PATIENT MEDICARE (WNR) MEDICARE (M) PART B Mar 31, 2012 PART B [id number] [phone] STEVEN ALEXANDRE JR S PATIENT MEDICARE (WNR) MEDICARE (M) PART A Mar 31, 2012 PART A [id number] [phone] STEVEN ALEXANDRE JR S PATIENT MEDICARE (WNR) MEDICARE (M) PART B Mar 31, 2012 PART B [id number] [phone] STEVEN ALEXANDRE JR S PATIENT MEDICARE (WNR) MEDICARE (M) PART A Mar 31, 2012 PART A [id number] STEVEN ALEXANDRE JR S PATIENT MEDICARE (WNR) MEDICARE (M) PART B Mar 31, 2012 PART B [id number] STEVEN ALEXANDRE JR PATIENT MEDICARE PART D (WNR) PRESCRIPT ION PART D May 31, 2012 PART D [id number] [phone] STEVEN ALEXANDRE JR S PATIENT MEDICARE PART D (WNR) PRESCRIPT ION PART D May 31, 2012 PART D [id number] STEVEN ALEXANDRE JR PATIENT Selected Encounter This section includes the information on record at [place] for the [place]counter. Date/Time Encounter Type Encounter Description Reason Provider Source Dec 27, 2024 08:45 AM ACUP 1/> W/O ESTIM EA ADD 15 [facility] TREATMENT ICD-10-CM M25.551 Pain in right hip MAVERICK RAMON HER Wyatt IHE Encounter Template Text not used by [place] Assessments - Encounter Diagnoses This section includes the primary and secondary diagnoses documented for the Encounter. Date/Time Primary/Secondary Diagnosis Diagnosis Name Provider Source Dec 27, 2024 11:28 AM PRIMARY Pain in right hip SP RAMON M [facility] Dec 27, 2024 11:28 AM SECONDARY Cervicalgia SP RAMON M [facility] [place] [facility] Dec 27, 2024 11:28 AM SECONDARY Pain in right arm SP RAMON [facility] [place] [facility] Dec 27, 2024 11:28 AM SECONDARY Pain in right shoulder SP RAMON [facility] [place] [facility] Dec 27, 2024 11:28 AM SECONDARY Post-traumatic stress disorder, chronic CATIAUNSP LAM [facility] [place] [facility] Plan of Treatment: Future Appointments (+ 6 months) and Future Tests (+/- 45 days) The Plan of Treatment section includes future care activities for the [facility] [place] [facility] This section includes future appointments and future orders which are active, pending or scheduled. Future Appointments This section includes appointments that were scheduled to occur 6 months from the date of the Encounter, up to a maximum of 20 appointments. The data comes from all [place] treatment facilities. Appointment Date/Time Appointment Type Appointme nt Facility Name Dec 31, 2024 02:00 PM AMBULATORY - PSYCHIATRY [facility] Jan 10, 2025 03:00 PM AM[place]ULATORY [place]ICINE [place] [facility] [place] [facility] Jan 16, 2025 11:30 AM AMBULATORY - PSYCHIATRY [facility] Jan 22, 2025 11:00 AM AM[place]ULATORY [place]ICINE [place] [facility] [place] [facility] Jan 23, 2025 08:30 AM AMBULATORY - NONE [facility] [place] [facility] Jan 23, 2025 09:00 AM AMBULATORY - NONE [facility] [place] [facility] Jan 31, 2025 08:30 AM [facility] Feb 06, 2025 10:30 AM AMBULATORY - MEDICINE [facility] [place] [facility] Feb 12, 2025 08:00 AM AMBULATORY - PSYCHIATRY [facility] March 07, 2025 08:00 AM AMBULATORY - PSYCHIATRY [facility] March 12, 2025 10:00 AM AMBULATORY [place] MEDICINE [place] [facility] [place] [facility] May 14, 2025 02:00 PM [facility] Jun 06, 2025 08:30 AM [facility] Lab Results: +/- 30 days of the encounter This section includes the Chemistry and Hematology Lab Results on record with [place] for the patient. Radiology Reports and Pathology Reports are provided separately, in subsequent sections. Lab Results This section contains the Chemistry/Hematology Results that were resulted 30 days before or 30 daysafter the date of the Encounter. Date/Time Source Result Type Result - Unit Interpretation Reference Range Specimen Type Comment Dec 18, 2024 07:43 AM [place] CBC AND DIFF (AUTO) BLOOD Specimen Ty pe: BLOOD No comment entered. Ordering Provider: FERMIN MEJIA Report Released Date/Time: Dec 10, 2024 03:08 PM Reporting Lab: [facility] [address] [address] Performing Lab: [facility] [address] [facility] [address] WBC 4.46 10*3/uL L 4.50-11.00 RBC 3.84 [...] 10*3/uL 0.00-0.00 Dec 18, 2024 07:43 AM [place] MAGNESIUM SERUM Sp ecimen Type: SERUM Comment: NOTE CHANGE FROM PREVIOUS RESULTS Ordering Provider: FERMIN MEJIA Report Released Date/Time: Dec 10, 2024 03:08 PM Reporting [facility] [address] [address] Performing [facility] [address] [address] MAGNESIUM 1.6 mg/dL 1.6-2.6 Dec 18, 2024 07:43 AM [place] PO4 SERUM Sp ecimen Type: SERUM Comment: NOTE CHANGE FROM PREVIOUS RESULTS Ordering Provider: FERMIN MEJIA Report Released Date/Time: Dec 10, 2024 03:08 PM Reporting [facility] [address] [address] Performing [facility]: [facility] [address] [address] PO4 3.0 mg/dL 2.5-5.0 Dec 18, 2024 07:43 AM [place] BASIC METABOLIC PANEL (non-fasting) SERUM Specimen Type: SERUM Comment: NOTE CHANGE FROM PREVIOUS RESULTS Ordering Provider: FERMIN MEJIA Report Released Date/Time: Dec 10, 2024 03:08 PM Reporting [facility] [address] [address] Performing Lab: [facility] [address] [address] UREA NITROGEN 45 mg/dL H 7-25 GLUCOSE 98 mg/dL 65-100 SODIUM 139 mmol/L 135-145 POTASSIUM 4.3 mmol/L 3.5-5.0 CHLORIDE 102 mmol/L 100-110 CO2 28 meq/L 20-30 CREATININE, Serum 2.65 mg/dL H 0.50-1.40 eGFR(CKD-EPI 2020) 25 mL/min L >60 Dec 07, 2024 02:41 PM [place] PSA SERUM Sp ecimen Type: SERUM No comment entered. Ordering Provider: FERMIN MEJIA Report Released Date/Time: Dec 07, 2024 02:39 PM Reporting Lab: [facility] [address] [address] Performing Lab: [place] [facility] [address] [address] PSA 2.57 ng/mL 0.00-4.00 Dec 07, 2024 02:41 PM [place] VITAMIN D (25-OH) SERUM Specimen Type: SERUM No comment entered. Ordering Provider: FERMIN MEJIA Report Released Date/Time: Dec 07, 2024 02:39 PM Reporting Lab: [facility] [address] [address] Performing [facility]: [place] [facility] [address] VITAMIN D (25-OH) 42 ng/mL 20-50 Dec 07, 2024 02:41 PM [place] TSH SERUM Sp ecimen Type: SERUM No comment entered. Ordering Provider: FERMIN MEJIA Report Released Date/Time: Dec 07, 2024 02:39 PM Reporting Lab: [facility] [address] [address] Performing [facility]: [place] [facility] [address] [address] TSH 0.78 u[IU]/mL 0.35-5.00 Dec 07, 2024 02:41 PM [place] VITAMIN B12 SERUM Specimen Type: SERUM No comment entered. Ordering Provider: FERMIN MEJIA Report Released Date/Time: Dec 07, 2024 02:39 PM Reporting Lab: [facility] [address] [address] Performing [facility]: [place] [facility] [address] VITAMIN B12 1277 pg/mL H 200-900 Dec 07, 2024 02:41 PM [place] MICROALBUMIN CREATININE RATIO PANEL URINE Specimen Type: URINE No comment entered. Ordering Provider: FERMIN MEJIA Report Released Date/Time: Dec 07, 2024 02:39 PM Reporting Lab: [facility] [address] [address] [facility]forming [facility] [address] [address] MICROALBUMIN/CREATININE RATIO 85.9 mg/g H 0-29.9 MICROALBUMIN,QUANTITATIVE 6.6 mg/dL RR U NAVAIL CREATININE URINE 76.80 mg/dL Dec 07, 2024 02:41 PM [place] PT & INR (COUMADIN) PLASMA Specimen Ty pe: PLASMA No comment entered. Ordering Provider: FERMIN MEJIA Report Released Date/Time: Dec 07, 2024 02:39 PM Reporting Lab: [address] [address] Performing Lab: [address] [address] INR 4.2 PROTIME 44.4 s H 10.0-13.1 Dec 07, 2024 02:41 PM [place] HEMOGLOBIN A1C PANEL BLOOD Specimen T ype: [...] Dec 07, 2024 02:39 PM Reporting Lab: [address] [address] Performing Lab: [address] [address] HEMOGLOBIN A1C 7.1 H 4.0-5.6 Dec 07, 2024 02:41 PM [place] MAGNESIUM SERUM Sp ecimen Type: SERUM No comment entered. Ordering Provider: FERMIN MEJIA Report Released Date/Time: Dec 07, 2024 02:39 PM Reporting Lab: [address] [address] Performing Lab: [address] [address] MAGNESIUM 1.5 mg/dL L 1.6-2.6 Dec 07, 2024 02:41 PM [place] LIPID PANEL FASTING SERUM Specimen Ty pe: SERUM No comment entered. Ordering Provider: FERMIN MEJIA Report Released Date/Time: Dec 07, 2024 02:39 PM Reporting Lab: [facility] [address] Performing [facility]: [facility] [address] [address] CHOLESTEROL 113 mg/dL TRIGLYCERIDE 117 mg/dL 0-150 LDL calculated 57 mg/dL 0-129 CHOL/HDL 3.4 HDL CHOLESTEROL 33 mg/dL L 40-60 Dec 07, 2024 02:41 PM [place] CALCIUM SERUM Sp ecimen Type: SERUM No comment entered. Ordering Provider: FERMIN MEJIA Report Released Date/Time: Dec 07, 2024 02:39 PM Reporting [facility]: [facility] [address] [address] [facility] [address] CALCIUM 9.3 mg/dL 8.5-10.2 Dec 07, 2024 02:41 PM [place] LIVER FUNCTION SERUM Specimen Type: SERUM No comment entered. Ordering Provider: FERMIN MEJIA Report Released Date/Time: Dec 07, 2024 02:39 PM Reporting [facility] [address] [facility] [address] PROTEIN,TOTAL 6.7 g/dL 6.0-8.3 ALBUMIN 3.3 g/dL L 3.5-5.0 ALKALINE PHOSPHATASE 121 U/L 40-150 AST 23 U/L 5-34 ALT 30 U/L BILIRUBIN, TOTAL 0.4 mg/dL 0.2-1.2 Dec 07, 2024 02:41 PM [place] BASIC METABOLIC PANEL (fasting) SERUM Specimen Type: SERUM No comment entered. Ordering Provider: FERMIN MEJIA Report Released Date/Time: Dec 07, 2024 02:39 PM Reporting Lab: [facility] [address] Performing Lab: [address] [address] UREA NITROGEN 69 mg/dL H 7-25 GLUCOSE 146 mg/dL H 65-100 SODIUM 137 mmol/L 135-145 POTASSIUM 4.8 mmol/L 3.5-5.0 CHLORIDE 103 mmol/L 100-110 CO2 27 meq/L 20-30 CREATININE, Serum 3.47 mg/dL H 0.50-1.40 eGFR(CKD-EPI 2020) 18 mL/min L >60 Dec 07, 2024 02:41 PM [place] CBC AND DIFF (AUTO) BLOOD Specimen Ty pe: BLOOD No comment entered. Ordering Provider: FERMIN MEJIA Report Released Date/Time: Dec 07, 2024 02:39 PM Reporting Lab: [address] [address] Performing Lab: [address] [address] WBC 4.04 10*3/uL L 4.50-11.00 RBC 3.90 [...] 0.0 0.0-0.0 NRBC, ABS 0.00 10*3/uL 0.00-0.00 Social History: Smoking Status (Most current) and Tobacco Use (All prior to encounter date) This section includes the most current, and the historical, smoking and tobacco- related health factors from the [place] facility where the Encounter took place. Current Smoking Status This section includes the most current smoking, or tobacco-related health factor, from the [place] facility where the Encounter took place. Date/Time Current Smoking Status Comment Facil ity Dec 10, 2024 02:50 PM [place]-TOBACCO NEVER [place] SED CIGARETTES [facility] Tobacco Use History This section includes a history of the smoking, or tobacco-related health factors, that were collected on or before the date of the Encounter. The data comes from the [place] facility where the Encounter took place. Date/Time Smoking Status/Tobacco Use Comment F acility Dec 10, 2024 02:50 PM [facility]-TO[facility]ACCO NEVER U SED OTHER TYPE [facility] [place] [facility] Oct 27, 2023 10:10 AM VA-TOBACCO FORMER USER [facility] [place] [facility] Oct 27, 2023 10:10 AM VA-TOBACCO QUIT 15 YRS OR MORE [facility] [place] [facility] Radiology Reports: +/- 30 days of the [...] the Encounter. The data comes from all [place] treatment facilities. Date/Time Radiology Report Provider Source Dec 11, 2024 09:27 AM HIP 2-3 VIEWS (RIG HT) WITH OR WITHOUT PELVIS: CLAUDIA ALEXANDRE JR [id number] -[id number] M Exm Date: DEC 11, 2024@09:27 Req Phys: FERMIN MEJIA Loc: [facility] PACT 1 AUDIENCE COORDINATOR (Req'g Loc) Img Loc: [facility]BUILDING 1 Service: Unknown [facility] [place] [address] (Case [id number] COMPLETE) HIP 2-3 VIEWS (RIGHT) WITH OR WIT(RAD Detailed) CPT:90406 CPT Modifiers : RT RIGHT SIDE Reason for Study: Right hip pain Clinical History: HFrEF Report Status: Verified Date Reported: DEC 11, 2024 Date Verified: DEC 11, 2024 First [facility] E-Sig:/ES/DARRELL JONES JR Report: Study: AP view [...] Primary Interpreting Staff: DARRELL JONES JR, Radiologist (First Cook) /DARRELL SMITH JR [facility] Encounter Notes: All associated encounter notes This section contains the clinical notes associated to the Encounter. Date/Time Encounter Note(s) Provider Source Dec 27, 2024 11:24 AM ACUPUNCTURE NOTE: LOCAL TITLE: ACUPUNCTURE TREATMENT STANDARD TITLE: ACUPUNCTURE NOTE DATE OF NOTE: DEC 27, 2024@11:24 ENTRY DATE: DEC 27, 2024@11:24:30 AUTHOR: RAJAN RAMON EXP COSIGNER: URGENCY: STATUS: COMPLETED CLAUDIA ALEXANDRE JR is a 69 BLACK OR MALE who presents with Right side shoulder, elbow, hip and back pain. Active Problem Chronic combined systolic and diast [...] THORNTON Cardiac pacemaker in situ R69. 11/08/2016 FLORES LOCKWOOD Asthma J45.998 10/30/2015 IZABELA HOLLAND Benign hypertension I10. 10/30/2015 IZABELA HOLLAND Heart disease I51.9 10/30/2015 IZABELA HOLLAND Low back pain M54.5 10/30/2015 IZABELA HOLLAND Diabetes mellitus E11.9 10/30/2015 IZABELA HOLLAND ___ Date Dec CC / HPI - Requesting Provider: Provisional Diagnosis:Pain in shoulder and neck Right side. Reason for Request: ___ INFORMED CONSENT: Oral Consent obtained on Dec: Acupuncture treatment including risk/side effects, benefits, alternatives to treatment, and the management plan were reviewed with client who expressed understanding and agreed. Subjective CHIEF CONCERN(S):Melanie reports that last December he took a fall while shopping at [employer] falling onto his right side. states he went down hard landing on his right elbow shoulder and hip. Melanie has had right arm numbness since that time with no loss of strength. [place] states he has full range of motion with his arm. [place] also has pain in his right hip. [place] states he has a radiating pain from his hips down to his right hernández on the lateral aspect of his leg. In addition [place] states he was told that he had a pinched nerve in the right side of his neck. [place] states he has pain in the neck that radiates from the shoulder to his occiput. __ Response to last treatment: [place] states last treatment was moderately helpful but not as helpful as the prior treatment. states that shortly after his most recent acupuncture visit he came down with RSV. [place] states he was quite sick for a few weeks and still has some residual phlegm and cough but is generally doing better. [place] states that his right side hip and leg are the most painful today as is his right shoulder. CLIENT GOALS FOR TREATMENT: Reduce pain and numbness in right shoulder and arm improve pain levels and hip and back and neck. ___ SYMPTOM CHECKLIST: Any endorsement of the following symptoms provided below: Headache, Radicalgia, weakness, fever, sore throat, chest pain, shortness of breath, joint swelling, dizziness, vision loss, unexplained weight loss, bowel or bladder incontinence/retention or saddle anesthesia History of: N/A ___ OBJECTIVE General: . Client in no apparent distress . Appropriate attire . Oriented x4 Skin: . No effusion/edema . No ecchymosis . No erythema _ ASSESSMENT / SUMMARY CM / Channel Diagnosis: GB, UB, LI, SI stagnation due to trauma Treatment principle: Course Qi, move stagnation Medical Decision Making (MDM) o - 2 or more stable chronic illnesses __ PLAN / RECOMMENDATION: Acupuncture Protocol: [X][place] Acupuncture (BFA), [ ][place], [ ]Auricular Trauma Protocol (ATP) Needle Type: [ ]ASP [X]Standard acupuncture needle [ ]Left Ear [ ]Right Ear [X]Bilateral - Ear swabbed with alcohol prior to needle insertion. Additional Acupuncture: [ ]Head: [ ]Neck: [ ]Torso: [X] LUE: LK, DB, ZB, SI 4 [X] RUE: Krzysztof Leong [X] LLE: LR 4.2, LR 4.5, LR 4.8, LR 5, SP 5.5, SP 6, KD 7 [X] RLE: UB 65, GB 41, GB 40, GB 34 TTP application on feet. Treatment Response: . Post treatment reported feeling Relaxed with less numbness in right hand.. Treatment Plan/Follow-up: [ ]Transfer to individual acupuncture [X]Return approximately 2x followed by update to treatment plan [ ]Referred to community Treatment Note(s): [X]Client provided handout on information regarding acupuncture including cautions/contraindicati ons. INSTRUCTIONS: . Attend follow-up appointment . Follow instructions from other providers /clint/ RAJAN RAMON LA.C, DIPL.AC WATCH CRYSTAL CUTTER Signed: 12/27/2024 11:29 RAJAN RAMON [place] [facility]
--- OUTSIDE RECORDS SUMMARY | 2025-02-13 11:27 | XMS_ITS | Encounter Summary ---
Author Name [facility] [facility] [place] [facility] [place] Address [address] [place] [address] Care Team Providers Care Dean Of Education Name Role Phone FERMIN MEJIA Primary Care [...] Mendiola's Name Patient's Relationship to Policy [facility]) MEDICARE ADVANTAGE [facility] ([facility]) Jul 31, 2017 [id number] STEVEN ALEXANDRE JR Silvia PATIENT MEDICARE ([facility]) MEDICARE () PART A Mar 31, 2012 PART A [id number] STEVEN ALEXANDRE JR S PATIENT MEDICARE ([facility]) MEDICARE () PART B Mar 31, 2012 PART B [id number] VANDA ALEXANDRE JRLE S PATIENT MEDICARE ([facility]) MEDICARE () PART A Mar 31, 2012 PART A [id number] STEVEN ALEXANDRE JR S PATIENT MEDICARE ([facility]) MEDICARE (M) PART B Mar 31, 2012 PART B [id number] STEVEN ALEXANDRE JR S PATIENT MEDICARE ([place]) MEDICARE ([place]) PART A Mar 31, 2012 PART A [id number] STEVEN ALEXANDRE JR S PATIENT MEDICARE ([place]) MEDICARE ([place]) PART B Mar 31, 2012 PART B [id number] STEVEN ALEXANDRE JR S PATIENT MEDICARE ([place]) MEDICARE (M) PART A Mar 31, 2012 PART A [id number] STEVEN ALEXANDRE JR S PATIENT MEDICARE ([place]) MEDICARE (M) PART A Mar 31, 2012 PART A [id number] [phone] STEVEN ALEXANDRE JR S PATIENT MEDICARE ([place]) MEDICARE (M) PART B Mar 31, 2012 PART B [id number] STEVEN ALEXANDRE JR S PATIENT MEDICARE ([place]) MEDICARE ([place]) PART B Mar 31, 2012 PART B [id number] STEVEN ALEXANDRE JR PATIENT MEDICARE PART D ([place]) PRESCRIPT ION PART D May 31, 2012 PART D [id number] [phone] STEVEN ALEXANDRE JR S PATIENT MEDICARE PART D ([place]) PRESCRIPT ION PART D May 31, 2012 PART D [id number] STEVEN ALEXANDRE JR PATIENT Selected Encounter This section includes the information on record at [place] for the Encounter. Date/Time Encounter Type Encounter Description Reason Provider Source Aug 28, 2024 08:30 AM COMPRE OPH EXAM EST PT 1/> OPTOMETRY ICD-10-CM E11.9 Type 2 diabetes mellitus without complications [facility] Encounter Template Text not used by [place] Assessments - Encounter Diagnoses This section includes the primary and secondary diagnoses documented for the Encounter. Date/Time Primary/Secondary Diagnosis Diagnosis Name Provider Source Aug 28, 2024 10:16 AM PRIMARY Type 2 diabetes mellitus without complications [facility] Aug 28, 2024 10:16 AM SECONDARY Combined forms of age-related cataract, bilateral [facility] Aug 28, 2024 10:16 AM SECONDARY Dry eye syndrome of bilateral lacrimal glands [facility] Aug 28, 2024 10:16 AM SECONDARY Open angle with borderline findings, low risk, bilateral [facility] Aug 28, 2024 10:16 AM SECONDARY Other localized visual field defect, bilateral [facility] Aug 28, 2024 10:16 AM SECONDARY Presbyopia [facility] Aug 28, 2024 10:16 AM SECONDARY Puckering of macula, left eye [facility] [place] [facility] Plan of Treatment: Future Appointments (+ 6 months) and Future Tests (+/- 45 days) The Plan of Treatment section includes future care activities for the [facility] This section includes future appointments and future orders which are active, pending or scheduled. Future Appointments This section includes appointments that were scheduled to occur 6 months from the date of the Encounter, up to a maximum of 20 appointments. The data comes from all [place] treatment [facility]. Appointment Date/Time Appointment Type Appointme nt Facility Name Sep 03, 2024 07:30 [facility] 03, 2024 09:00 AM [facility] - [facility]IATRY [facility] Sep 12, 2024 10:00 AM [facility] [place] [facility] [place] [facility] Sep 13, 2024 07:30 AM [facility] Sep 19, 2024 09:00 AM [facility] [place] [facility] Sep 21, 2024 07:30 AM [facility] Sep 21, 2024 09:30 AM [facility] [place] [facility] Sep 24, 2024 02:00 PM AMBULATORY - [facility] [place] [facility] Sep 25, 2024 01:00 PM AMBULATORY [facility] [place] [facility] Sep 25, 2024 01:30 PM AMBULATORY [facility] [place] [facility] Sep 25, 2024 02:00 PM [facility]UL[facility] [place] Sep 26, 2024 08:30 AM [facility]ULATORY [facility] Oct 03, 2024 09:30 AM [facility] [place] [facility] Oct 09, 2024 07:30 AM AMBULATORY - [facility] [place] [place] Oct 10, 2024 09:30 AM AMBULATORY [facility] [place] [facility] Oct 16, 2024 08:30 AM AM[facility]ULATORY [facility] [place] [facility] Oct 22, 2024 02:00 PM AMBULATORY - [facility] [place] Oct 25, 2024 09:00 AM AMBULATORY - MEDIC[facility] [place] [facility] Nov 15, 2024 09:15 AM AMBULATORY - MEDIC[facility] [place] [facility] Nov 29, 2024 08:45 AM AMBULATORY - [facility] [place] [facility] Active, Pending, and Scheduled Orders This section includes a listing of several types of active, pending, and scheduled orders, including clinic medications orders, diagnostic test orders, procedure orders and consult orders; where the start date of the order is 45 days before the date of the Encounter or 45 days after the date of theEncounter. The data comes from all [place] treatment facilities. Test Date/Time Test Type Test Details Facility Name Aug 17, 2024 12:00 AM Laboratory - Chemi stry Order MICROALBUMIN CREATININE RATIO PANEL URINE (RANDOM) [facility] Aug 17, 2024 12:00 AM Laboratory - Chemi stry Order PSA BLOOD (SST-SERUM) [facility] Aug 17, 2024 12:00 AM Laboratory - Chemi stry Order VITAMIN D (25-OH) BLOOD (SST-SERUM) [facility] Aug 17, 2024 12:00 AM Laboratory - Chemi stry Order PT & INR (COUMADIN) BLOOD (BLUE-PLASMA) [facility] Aug 17, 2024 12:00 AM Laboratory - Chemi stry Order CBC AND DIFF (AUTO) BLOOD (LAV-BLOOD) [facility] Aug 17, 2024 12:00 AM Laboratory - Chemi stry Order HEMOGLOBIN A1C PANEL BLOOD (LAV-BLOOD) [facility] Aug 17, 2024 12:00 AM Laboratory - Chemi stry Order MAGNESIUM BLOOD (SST-SERUM) [facility] Aug 17, 2024 12:00 AM Laboratory - Chemi stry Order TSH BLOOD (SST-SERUM) [facility] Aug 17, 2024 12:00 AM Laboratory - Chemi stry Order LIPID PANEL FASTING BLOOD (SST-SERUM) [facility] Aug 17, 2024 12:00 AM Laboratory - Chemi stry Order LIVER FUNCTION BLOOD (SST-SERUM) [facility] Aug 17, 2024 12:00 AM Laboratory - Chemi stry Order CALCIUM BLOOD (SST-SERUM) [facility] Aug 17, 2024 12:00 AM Laboratory - Chemi stry Order BASIC METABOLIC PANEL (fasting) BLOOD (SST-SERUM) [facility] Aug 17, 2024 12:00 AM Laboratory - Chemi stry Order VITAMIN B12 BLOOD (SST-SERUM) [facility] Social History: Smoking Status (Most current) and Tobacco Use (All prior to encounter date) This section includes the most current, and the historical, smoking and tobacco- related health factors from the [place] facility where the Encounter took place. Current Smoking Status This section includes the most current smoking, or tobacco-related health factor, from the [place] facility where the Encounter took place. Date/Time Current Smoking Status Comment Facil ity Oct 27, 2023 10:10 AM [place]-TOBACCO FORMER USER [facility] Tobacco Use History This section includes a history of the smoking, or tobacco-related health factors, that were collected on or before the date of the Encounter. The data comes from the [place] facility where the Encounter took place. Date/Time Smoking Status/Tobacco Use Comment F acility Oct 27, 2023 10:10 AM [place]-TOBACCO QUIT 15 YRS OR MORE [facility] Radiology Reports: +/- 30 days of [...] the Encounter. The data comes from all [place] treatment facilities. Date/Time Radiology Report Provider Source Aug 07, 2024 08:23 AM CHEST (2 VIEWS): CLAUDIA ALEXANDRE JR [id number] -[id number] M Exm Date: AUG 07, 2024@08:23 Req Phys: FERMIN MEJIA Loc: CWM/SO/PACT 1 [employer] (Req'g Loc) Img Loc: NHM/BUILDING 1 Service: Unknown [facility] LILLI BULL [id number] (Case [id number] COMPLETE) CHEST (2 VIEWS) (RAD Detailed) CPT:73067 Reason for Study: Cough Clinical History: HFrEF, CAD, SILVIA, DM2, HTN Report Status: Verified Date Reported: AUG 07, 2024 Date Verified: AUG 07, 2024 Security Agent E-Sig:/ES/DARRELL JONES JR Report: Study: PA and lateral chest x-ray. Comparison: None. Findings: Left-sided AICD pacemaker device is present. The patient is status post cardiac valve replacement. Likely atrial appendage excluder device placement. Prominent cardiomegaly. The lungs are clear. No acute pulmonary process is identified. The costophrenic sulci are sharp. There mediastinal contours and pulmonary vascularity are normal. No acute skeletal abnormalities are identified. Age-appropriate degenerative changes are seen to the spine. Impression: Cardiomegaly with no acute pulmonary pathology. Primary Diagnostic Code: No immediate attention required Primary Interpreting Staff: DARRELL JONES JR, Radiologist (Security Agent) /DARRELL SMITH JR [facility] Encounter Notes: All associated encounter notes This section contains the clinical notes associated to the Encounter. Date/Time Encounter Note(s) Provider Source Aug 28, 2024 07:27 AM OPTOMETRY NOTE: LOCAL TITLE: OPTOMETRY NOTE STANDARD TITLE: OPTOMETRY NOTE DATE OF NOTE: AUG 28, 2024@07:27 ENTRY DATE: AUG 28, 2024@07:27:21 AUTHOR: [facility] EXP COSIGNER: URGENCY: STATUS: COMPLETED Eye Examination for: CLAUIDA ALEXANDRE, 69 year old BLACK OR MALE ETELVINA: 6.25.24 Reason for Visit/CC: Patient here for CEE. Reports he is having difficulty with PAL for reading his bible, reports he would like reading only glasses. Reports PAL working well for all other tasks. Denies all other changes or complaints. Current Ocular Meds: none OHx/HPI: 1. T2DM s retinopathy 2. Low risk glc susp OU 3. ERM OU 4. SAMIRA OU 5. Superior quadrantanopsia OU 6. Combined cataract OU 7. RE, P OU (-) Pain: (-) HART: (-) Diplopia: (-) Flashes: (-) Floaters: (-) Amaurosis Fugax/Tia's: (-) Eye Injury: (-) Eye Surgery: (-) TBI FOHx: (+) Glaucoma: mother (-) ARMD (-) Blindness MHx: Code Description I50.42 Chronic combined systolic and diastolic heart failure ([facility] [[email or web address]] [id number]) R69. Outside providers (ICD-10-CM R69.) S70.01XS Contusion ([facility] [[email or web address]] [id number]) S40.011S Contusion of right shoulder ([facility] [[email or web address]] [id number]) I50.9 CHF - Congestive Heart Failure ([facility] [[email or web address]] [id number]) D62. Anaemia due to blood loss ([facility] [[email or web address]] [id number]) N18.32 Chronic Kidney Disease Stage 3B ([facility] [[email or web address]] [id number]) D13.1 Tubular adenoma ([facility] [[email or web address]] [id number]) Z87.891 Ex-smoker ([facility] [[email or web address]] [id number]) N52.9 Erectile dysfunction ([facility] [[email or web address]] [id number]) R31.29 Microscopic hematuria ([facility] [[email or web address]] [id number]) G47.30 Sleep apnea ([facility] [[email or web address]] [phone]) N40.1 Lower urinary tract symptoms due to benign prostatic hypertrophy ([facility] [[email or web address]] [id number]) Z79.01 Long-term current use of anticoagulant ([facility] [[email or web address]] [id number]) M10.9 Gout ([facility] [[email or web address]] [id number]) B35.1 Onychomycosis of toenails ([facility] [[email or web address]] [id number]) F43.12 Chronic post-traumatic stress disorder ([facility] [[email or web address]] [id number]) R69. Cardiac pacemaker in situ ([facility] [[email or web address]] [phone]) J45.998 Asthma ([facility] [[email or web address]] [id number]) I10. Benign hypertension ([facility] [[email or web address] [id number]) I51.9 Heart disease ([facility] [[email or web address] [id number]) M54.5 Low back pain ([facility] [[email or web address]] [phone]) E11.9 Diabetes mellitus ([facility] [[email or web address]] [id number]) SYSTEMIC MEDICATIONS/OCULAR MEDICATIONS: Active Outpatient Medications (including Supplies): Active Outpatient Medications Status ========= 1) CYANOCOBALAMIN 500MCG TAB TAKE ONE TABLET BY MOUTH ACTIVE ONCE DAILY FOR PREVENTION OF VITAMIN B12 DEFICIENCY Active Non-VA Medications Status ========= 1) Non-VA ALLOPURINOL 100MG TAB 100MG BY MOUTH DAILY ACTIVE 2) Non-VA AMLODIPINE BESYLATE 5MG TAB 5MG BY MOUTH ONCE ACTIVE DAILY 3) Non-VA ASPIRIN 81MG EC TAB 81MG BY MOUTH DAILY ACTIVE 4) Non-VA ATORVASTATIN CALCIUM 80MG TAB 40MG BY MOUTH AT ACTIVE BEDTIME 5) Non-VA CARVEDILOL 25MG TAB 25MG BY MOUTH TWICE DAILY ACTIVE 6) Non-VA FERROUS GLUCONATE 324MG TAB 324MG BY MOUTH ACTIVE ONCE DAILY 7) Non-VA FLUTICASONE PROP 220MCG 120D ORAL INHL 2 PUFFS ACTIVE BY MOUTH TWICE DAILY 8) Non-VA INSULIN,GLARGINE (LANTUS) INJ 15 UNITS ACTIVE SUBCUTANEOUSLY ONCE DAILY 9) Non-VA MULTIVITAMIN/MINERALS CAP/TAB 1 TABLET BY ACTIVE MOUTH ONCE DAILY 10) Non-VA OLODATEROL/TIOTROP 2.5MCG/ACTUAT 60D INH 2 ACTIVE PUFFS (1 DOSE) BY MOUTH ONCE DAILY 11) Non-VA SACUBITRIL 97MG/VALSARTAN 103MG TAB 1 TABLET ACTIVE BY MOUTH TWICE DAILY 12) Non-VA SEMAGLUTIDE 1MG/0.75ML INJ PEN 3ML 1MG ACTIVE SUBCUTANEOUSLY ONCE A WEEK 13) Non-VA SPIRONOLACTONE 25MG TAB 25MG BY MOUTH ONCE ACTIVE DAILY 14) Non-VA TORSEMIDE 20MG TAB 20MG BY MOUTH EVERY MORNING ACTIVE FOR 90 DAYS AND 40MG BY MOUTH EVERY EVENING FOR 90 DAYS 15) Non-VA WARFARIN (NON-VA) TAB 5 BY MOUTH EVERY DAY ACTIVE 16 Total Medications ALLERGIES: PENICILLIN, SPIRONOLACTONE VITALS (most recent, as listed in the electronic record): B/P: 112/66 (08/02/2024 14:39) Pulse: 60 (08/02/2024 14:39) Temperature: 97.6 F [36.4 C] (08/02/2024 14:39) Weight: Refused (08/02/2024 14:39) Height: 72 in [182.9 cm] (04/23/2024 08:34) BMI: BMI: 0.0 PERTINENT LABS: HEMOGLOBIN A1C TREND Collection DT Spec HGBA1c 10/11/2023 07:31 BLOOD 6.4 H 06/14/2022 08:43 BLOOD 6.1 H 05/04/2017 09:02 BLOOD comment 02/03/2017 08:02 BLOOD comment 10/29/2016 07:48 BLOOD 8.6 H Current Rx with last BCVA: OD: +0.75 20/15 OS: +0.75-1.03c823 20/20+2 Add: +2.75 20/20 DVA ( )sc ( x )cc - [x]phoropter []specs []CL OD: 20/25 OS: 20/25+1 Entrance Testing: Pupil: PERRL (-)APD EOM: SAFE OU, (-)Pain/Diplopia CVF: superior right quadrantopsia OU Subjective Refraction: OD: +1.00 20/20 OS: +1.00-0.09b995 20/20 Add: +2.75 SLE: Lids/Lashes: dermatochalasis OU, MGD OU Conjunctiva: white and quiet bulbar conj OU quiet palpebral conj OU Corneas: arcus OU Iris: flat and clear OU, (-)NVI/TID OU AC: D & Q OU Angles: 3x3 OU TAP @ 8:30am OD 18 mmHg OS 18 mmHg [x]Galvan, HOLDING BREATH []iCare []GAT Previous Pachymetry: OD: 541 OS: 527 Undilated Fundus Exam: declined 2/2 driving Vit: syneresis OU, PVD OU Lens: 2+ NSC OU, 1+ ACC OU (-)PXF OU C/D (Size and Rim Description) OD 0.55 pink and healthy, no focal notching OS 0.55 pink and healthy, no focal notching (-)NVD/Drance heme OU PPole OD clear OS clear (-)DBH/CWS/FELIPE/VB Macula OD flat and clear OS flat c ERM (-)CSME OU A/V: normal caliber OU Assessment/Plan: 1. Type II Diabetes without evidence of retinopathy or macular edema OU to extent viewed undilated -Pt ed re today's findings and the possible ocular health and visual complications associated with diabetes as well as importance of attending follow up appointments -Encouraged blood sugar, blood pressure and lipid control as directed by provider managing diabetes. -Pt ed to report any vision changes GIOVANI. -[place] repeated back the plan and education. -Monitor 2. Low risk open-angle glaucoma suspect OU. Moderate cupping with thinner than average CCT. No evidence of pigment dispersion or pseudoexfoliation OU. Positive family history of glaucoma. No change in ONH appearance. Low index of suspicion at present. -Pt ed re today's findings -Pt ed re glaucoma as well as the natural history of this diagnosis including prognosis. -Stress importance of continued follow-up appointments - repeated back the plan and education. -RTC 1 year 3. Epiretinal membrane OS - stable -Pt ed re today's findings - repeated back the plan and education. -Monitor 4. Dry Eye Syndrome OU - symptomatic -Pt ed re today's findings -Continue Artificial Tears QID OU as needed - repeated back the plan and education. -Monitor 5. Superior quadrantanopsia OU - stable -Pt ed re today's findings -[place] repeated back the plan and education. -Monitor 6. Combined Cataracts OU - not visually significant at present -Pt ed re today's findings and the importance of UV protection -Pt ed cataracts may cause reduction of BCVA and symptoms of glare -RTC sooner if vision declines or interferes with ADLs - repeated back the plan and education. -Monitor 7. Refractive Error and Presbyopia OU -Rx updated and ordered per pt request SVx1. - also educated at length on importance of good lighting for reading tasks, verbalized understanding. -Monitor RTC 1 year or earlier PRN Glasses adjusted/repaired in office: () Yes (x) No If yes, how many pairs: Education: Diabetes: Patient was educated regarding diabetes and related ocular complications including retinopathy and cataract formation as well as other related systemic complications. The importance of good blood sugar control, blood sugar testing as recommended by their PCP and the importance of timely follow up were all emphasized. Glaucoma: Patient was educated regarding glaucoma/glaucoma suspect as well as the natural history of this diagnosis including prognosis. Stress importance of compliance and persistency with glaucoma medication when prescribed, timely follow up as well as the role of ancillary testing. Exclusion criteria for ancillary testing include significantly reduced acuity, mental status changes affecting the patient's ability to attend to the test or other physical limitations that would prohibit the patient's ability to participate in testing. Medication Reconciliation: Outpatient: Has the patient been taking medications as documented in the EMLR? YES: The patient has been taking medications as documented in the EMLR. Essential Medication List for Review used to complete this medication reconciliation. INCLUDED IN THIS LIST: Alphabetical list of active outpatient prescriptions dispensed from this [place] (local) and dispensed from another [place] or [facility] facility (remote) as well as [...] whether with a VA or non-VA provider. Medication List: JLV Link Data on this list may not be complete. Please check JLV. Allergies/ADRs (Tool #5) FACILITY ALLERGY/ADR -------- [facility] ACETAMINOPHEN/OXYCODONE [facility] P[facility] [place] [place]ONOL[facility]ONE [facility] ACETAMINOPHEN/OXYCODONE [facility] PENICILLIN Med. Reconciliation (Tool #1) INCLUDED IN THIS LIST: Alphabetical list of active outpatient prescriptions dispensed from this [place] (local) and dispensed from another [place] or [facility] facility (remote) as well as inpatient orders (local pending and active), local clinic medications, locally documented non-VA medications, and local prescriptions that have or been discontinued in the past 90 days. Non-VA Meds Last Documented On: Apr 23, 2024 NOTE The display of VA prescriptions dispensed from another VA or [facility]D facility (remote) is limited to active outpatient prescription entries matched to National Drug File at the originating site and may not include some items such as investigational drugs, compounds, etc. NOT INCLUDED IN THIS LIST: Medications self-entered by the patient into personal health records (i.e. [employer]) are NOT included in this list. Non-VA medications documented outside this [place], remote inpatient orders (regardless of status) and remote clinic medications are NOT included in this list. The patient and provider must always discuss medications the patient is taking, regardless of where the medication was dispensed or obtained. -------- Non-VA ALLOPURINOL 100MG TAB TAKE ONE TABLET [...] CARBOXYMETHYLCELLULOSE NA 0.5% OPH SOLN (Status = ) INSTILL 1 DROP INTO EACH EYE FOUR TIMES A DAY FOR DRY EYE Rx# [id number] Last Released: 06/02/23 Qty/Days Supply: Rx Expiration Date: 05/31/24 Refills Remainin Indication: FOR DRY EYE Non-VA CARVEDILOL 25MG TAB TAKE ONE TABLET BY MOUTH TWICE DAILY Medication prescribed by Non-VA provider. OUTPT CLINDAMYCIN HCL 300MG CAP (Status = ) TAKE TWO CAPSULES BY MOUTH ONE TIME FOR INFECTION CAUSED BY BACTERIA ONE HOUR PRIOR TO DENTAL APPOINTMENT Rx# [id number] Last Released: 07/25/24 Qty/Days Supply: 08/04 Rx Expiration Date: 08/23/24 Refills Remainin Indication: FOR INFECTION CAUSED BY BACTERIA OUTPT CYANOCOBALAMIN 500MCG TAB (Status = Active) TAKE ONE TABLET BY MOUTH ONCE DAILY FOR PREVENTION OF VITAMIN B12 DEFICIENCY Rx# [id number] Last Released: 08/04/24 Qty/Days Supply: 100/ Rx Expiration Date: 08/03/25 Refills Remainin Indication: [...] TAB TAKE 5 BY MOUTH EVERY DAY -------- SUPPLIES -------- PHARMACY TERMS AND POSSIBLE PATIENT ACTIONS INPT = [place] inpatient order IV = [place] intravenous medication OUTPT = [place] outpatient prescription PHARMACY POSSIBLE PATIENT TERMS EXPLANATION ACTIONS -------- ACTIVE A prescription that can be If you have refills, filled at the local [place] pharmacy. you may request a refill of this prescription from your [place] pharmacy. CLINIC A medication you received during If you have questions a visit to a [place] clinic or about this medication emergency department. contact your [place] healthcare team. DISCONTINUED A prescription your provider has Contact your VA stopped. It is no longer healthcare team if you available to be sent to you or need more of this picked up at the [place] pharmacy medication. window. A prescription which is too old Contact your VA to fill. This does not refer to healthcare team if you the expiration date of the need more of this medication in the container. medication. NON-VA A medication that came from If this medication someplace other than a VA information is pharmacy. This may be a incorrect or out of prescription from either the VA date, please tell your or non VA providers that was VA healthcare team. filled outside the VA. Or, it may be an zzch-[id number]-wagmpsl (OTC), herbal, dietary supplements or sample medication. ON HOLD An active prescription that will Contact your VA not be filled until pharmacy pharmacy when you need resolves the issue. more of this medication. PARKED An active prescription that will Contact your VA not be filled until the patient pharmacy when you need requests it. this medication. PENDING This prescription order has been If you have been sent to the pharmacy for review instructed to start and is not ready yet. this medication now, contact your VA pharmacy. SUSPENDED An active prescription that is Contact your [facility] not scheduled to be filled yet. pharmacy if you need You should receive it before this medication now. you run out. == (x) Printed Medication Reconciliation List Offered and Declined by [place] () Medication Reconciliation List Printed for [place] at Exam () Optometry HT Please Print and Mail Copy of Medication Reconciliation List () AMSA Please Print and Mail Copy of Medication Reconciliation List /es/ [facility] BEARD OD READERS' ADVISORY SERVICE LIBRARIAN Signed: 08/28/2024 10:16 [facility] [place] [facility]
--- OUTSIDE RECORDS SUMMARY | 2025-02-13 11:27 | XMS_ITS | Encounter Summary ---
Author Name [facility] [place] Organization [facility] [place] Address [address] [place] [address] Care Team Providers Care Outreach Counselor Name Role Phone FERMIN MEJIA Primary Care [...] Mendiola's Name Patient's Relationship to Policy Mendiola [facility] MEDICARE ADVANTAGE [facility] ([facility]) Jul 31, 2017 [id number] STEVEN ALEXANDRE JR S PATIENT MEDICARE (WN) MEDICARE (M) PART A Mar 31, 2012 PART A [id number] STEVEN ALEXANDRE JR S PATIENT MEDICARE (WN) MEDICARE (M) PART B Mar 31, 2012 PART B [id number] STEVEN ALEXANDRE JR S PATIENT MEDICARE (WN) MEDICARE (M) PART B Mar 31, 2012 PART B [id number] STEVEN ALEXANDRE JR S PATIENT MEDICARE (WN) MEDICARE (M) PART A Mar 31, 2012 PART A [id number] STEVEN ALEXANDRE JR S PATIENT MEDICARE (WNR) MEDICARE (M) PART A Mar 31, 2012 PART A [id number] [phone] STEVEN ALEXANDRE JR S PATIENT MEDICARE (WNR) MEDICARE (M) PART B Mar 31, 2012 PART B [id number] [phone] STEVEN ALEXANDRE JR S PATIENT MEDICARE (WNR) MEDICARE (M) PART A Mar 31, 2012 PART A [id number] STEVEN ALEXANDRE JR S PATIENT MEDICARE (WNR) MEDICARE (M) PART B Mar 31, 2012 PART B [id number] STEVEN ALEXANDRE JR S PATIENT MEDICARE (WNR) MEDICARE (M) PART A Mar 31, 2012 PART A [id number] [id number] STEVEN ALEXANDRE JR S PATIENT MEDICARE (WNR) MEDICARE (M) PART B Mar 31, 2012 PART B [id number] [id number] STEVEN ALEXANDRE JR PATIENT MEDICARE PART D (WNR) PRESCRIPT ION PART D May 31, 2012 PART D [id number] [phone] STEVEN ALEXANDRE JR S PATIENT MEDICARE PART D (WNR) PRESCRIPT ION PART D May 31, 2012 PART D [id number] STEVEN ALEXANDRE JR PATIENT Selected Encounter This section includes the information on record at OR for the Encounter. Date/Time Encounter Type Encounter Description Reason Provider Source Sep 25, 2024 02:00 PM OFFICE O/P EST LOW 20 MIN PRIMARY CARE/MEDICINE ICD-10-CM S90.31XA Contusion of right foot, initial encounter NYASIA MCGRATH E Encounter Template Text not used by OR Assessments - Encounter Diagnoses This section includes the primary and secondary diagnoses documented for the Encounter. Date/Time Primary/Secondary Diagnosis Diagnosis Name Provider Source Sep 25, 2024 01:52 PM PRIMARY Contusion of right foot, initial encounter NYASIA MCGRATH [place] [facility] Plan of Treatment: Future Appointments (+ 6 months) and Future Tests (+/- 45 days) The Plan of Treatment section includes future care activities for the patient from all [facility] This section includes future appointments and future orders which are active, pending or scheduled. Future Appointments This section includes appointments that were scheduled to occur 6 months from the date of the Encounter, up to a maximum of 20 appointments. The data comes from all [place] treatment facilities. Appointment Date/Time Appointment Type Appointme nt Facility Name Sep 26, 2024 08:30 AM AMBULATORY - MEDICINE [facility] Oct 03, 2024 09:30 AM AMBULATORY - MEDICINE [facility] [place] [facility] Oct 09, 2024 07:30 AM AMBULATORY - REHAB MEDICIN [facility] Oct 10, 2024 09:30 AM AMBULATORY - MEDICINE [facility] [place] [facility] Oct 16, 2024 08:30 AM AMBULATORY - MEDICINE [facility] [place] [facility] Oct 22, 2024 02:00 PM [facility] Oct 25, 2024 09:00 AM AMBULATORY - MEDICINE [facility] [place] [facility] Nov 15, 2024 09:15 AM AMBULATORY - MEDICINE [facility] [place] [facility] Nov 29, 2024 08:45 AM AMBULATORY - MEDICINE [facility] [place] [facility] Dec 10, 2024 02:30 PM AMBULATORY - MEDICINE [facility] Dec 27, 2024 08:45 AM AMBULATORY - MEDICINE [facility] [place] [facility] Dec 31, 2024 02:00 PM AMBULATORY - PSYCHIATRY [facility] Jan 10, 2025 03:00 PM AMBULATORY - MEDICINE [facility] [place] [facility] Jan 16, 2025 11:30 AM AMBULATORY - PSYCHIATRY [facility] Jan 22, 2025 11:00 AM AMBULATORY - MEDICINE [facility] [place] [facility] Jan 23, 2025 08:30 AM AMBULATORY - NONE [facility] [place] [facility] Jan 23, 2025 09:00 AM AMBULATORY - NONE [facility] [place] [facility] Jan 31, 2025 08:30 AM AM[facility]ULATORY - MEDICINE [facility] Feb 06, 2025 10:30 AM AMBULATORY - MEDICINE [facility] [place] [facility] Feb 12, 2025 08:00 AM AMBULATORY - PSYCHIATRY [facility] Active, Pending, and Scheduled Orders This section includes a listing of several types of active, pending, and scheduled orders, including clinic medications orders, diagnostic test orders, procedure orders and consult orders; where the start date of the order is 45 days before the date of the Encounter or 45 days after the date of theEncounter. The data comes from all [place] treatment facilities. Test Date/Time Test Type Test Details Facility Name Aug 17, 2024 12:00 AM Laboratory - Chemi stry Order MICROALBUMIN CREATININE RATIO PANEL URINE (RANDOM) [facility] Aug 17, 2024 12:00 AM Laboratory - Chemi stry Order PSA BLOOD (SST-SERUM) [facility] Aug 17, 2024 12:00 AM Laboratory - Chemi stry Order VITAMIN D (25-OH) BLOOD (SST-SERUM) [facility] Aug 17, 2024 12:00 AM Laboratory - Chemi stry Order PT & INR (COUMADIN) BLOOD (BLUE-PLASMA) [facility] Aug 17, 2024 12:00 AM Laboratory - Chemi stry Order HEMOGLOBIN A1C PANEL BLOOD (LAV-BLOOD) [facility] Aug 17, 2024 12:00 AM Laboratory - Chemi stry Order TSH BLOOD (SST-SERUM) [facility] Aug 17, 2024 12:00 AM Laboratory - Chemi stry Order CBC AND DIFF (AUTO) BLOOD (LAV-BLOOD) [facility] Aug 17, 2024 12:00 AM Laboratory - Chemi stry Order MAGNESIUM BLOOD (SST-SERUM) [facility] Aug 17, 2024 12:00 AM Laboratory - Chemi stry Order LIPID PANEL FASTING BLOOD (SST-SERUM) [facility] Aug 17, 2024 12:00 AM Laboratory - Chemi stry Order LIVER FUNCTION BLOOD (SST-SERUM) [facility] Aug 17, 2024 12:00 AM Laboratory - Chemi stry Order BASIC METABOLIC PANEL (fasting) BLOOD (SST-SERUM) [facility] Aug 17, 2024 12:00 AM Laboratory - Chemi stry Order CALCIUM BLOOD (SST-SERUM) [facility] Aug 17, 2024 12:00 AM Laboratory - Chemi stry Order VITAMIN B12 BLOOD (SST-SERUM) [facility] Vital Signs: All taken on the encounter date This section contains inpatient and outpatient Vital Signs collected on the date of the Encounter. Date/Time Temperature Pulse Blood Pressure Respiratory Rate 02 Pain Height Weight Body Mass Index Source Sep 25, 2024 01:45 PM 98 58 104/66 18 94 1 269 37 [facility] Social History: Smoking Status (Most current) and Tobacco Use (All prior to encounter date) This section includes the most current, and the historical, smoking and tobacco- related health factors from the OR facility where the Encounter took place. Current Smoking Status This section includes the most current smoking, or tobacco-related health factor, from the [place] facility where the Encounter took place. Date/Time Current Smoking Status Comment Facil ity Oct 27, 2023 10:10 AM VA-TOBACCO FORMER USER [facility] Tobacco Use History This section includes a history of the smoking, or tobacco-related health factors, that were collected on or before the date of the Encounter. The data comes from the OR facility where the Encounter took place. Date/Time Smoking Status/Tobacco Use Comment F acility Oct 27, 2023 10:10 AM OR-TOBACCO QUIT 15 YRS OR MORE [facility] Encounter Notes: All associated encounter notes This section contains the clinical notes associated to the Encounter. Date/Time Encounter Note(s) Provider Source Sep 25, 2024 01:47 PM PHYSICIAN MANAGER REIMBURSEMENT NOTE: LOCAL TITLE: PA NOTE STANDARD TITLE: PHYSICIAN MANAGER REIMBURSEMENT NOTE DATE OF NOTE: SEP 25, 2024@13:47 ENTRY DATE: SEP 25, 2024@13:47:40 AUTHOR: NYASIA MCGRATH EXP COSIGNER: URGENCY: STATUS: COMPLETED SICK CALL VISIT HPI: 69-year-old male with below noted past medical history presents today for 4-day history of bruising and tenderness on the dorsal aspect of the right foot along the toes secondary to dropping a can onto his shod foot. He was just seen by the chiropractor and had no antalgia or complaint. Her note states that he had full weightbearing. He is here because of the tenderness and he would like lidocaine patches as he was wearing one with the fact when he arrived for his appointment. No changes in sensations. No bleeding or open wounds. REVIEW OF SYSTEMS: A 12 point review of systems is negative except as noted in the HPI. Active Medical Problems: Active Problem Chronic combined systolic and diast 08/07/2024 FERMIN MEJIA Outside providers R69. 04/23/2024 FERMIN MEJIA Contusion S70.01XS 04/01/2023 RIZWANA MARTINES Contusion of right shoulder S40.011 04/01/2023 RIZWANA MARTINES CHF - Congestive Heart Failure (SCT 04/23/2024 RIZWANA MARTINES Anaemia due to blood loss D62. 09/28/2022 VANDANA MARTINESGÓMEZ Vega Chronic Kidney Disease Stage 3B ([place] 04/23/2024 [...] HOLLAND Diabetes mellitus E11.9 10/30/2015 IZABELA HOLLAND Meds: Active Outpatient Medications (including Supplies): CYANOCOBALAMIN 500MCG TAB TAKE ONE TABLET BY MOUTH ONCE ACTIVE DAILY FOR PREVENTION OF VITAMIN B12 DEFICIENCY LIDOCAINE 5% PATCH APPLY 1 PATCH TOPICALLY ONCE DAILY PENDING NEEDED (LEAVE PATCH ON FOR 12 HOURS, THEN REMOVE PATCH) Non-VA ALLOPURINOL 100MG TAB 100MG BY MOUTH DAILY ACTIVE Non-VA AMLODIPINE BESYLATE 5MG TAB 5MG BY MOUTH ONCE DAILY ACTIVE Non-VA ASPIRIN 81MG EC TAB 81MG BY MOUTH DAILY ACTIVE Non-VA ATORVASTATIN CALCIUM 80MG TAB 40MG BY MOUTH AT ACTIVE BEDTIME Non-VA CARVEDILOL 25MG TAB 25MG BY MOUTH TWICE DAILY ACTIVE Non-VA FERROUS GLUCONATE 324MG TAB 324MG BY MOUTH ONCE ACTIVE DAILY Non-VA FLUTICASONE PROP 220MCG 120D ORAL INHL 2 PUFFS BY ACTIVE MOUTH TWICE DAILY Non-VA INSULIN,GLARGINE (LANTUS) INJ 15 UNITS ACTIVE SUBCUTANEOUSLY ONCE DAILY Non-VA MULTIVITAMIN/MINERALS CAP/TAB 1 TABLET BY MOUTH ACTIVE ONCE DAILY Non-VA OLODATEROL/TIOTROP 2.5MCG/ACTUAT 60D INH 2 PUFFS (1 ACTIVE DOSE) BY MOUTH ONCE DAILY Non-VA SACUBITRIL 97MG/VALSARTAN 103MG TAB 1 TABLET BY ACTIVE MOUTH TWICE DAILY Non-VA SEMAGLUTIDE 1MG/0.75ML INJ PEN 3ML 1MG ACTIVE SUBCUTANEOUSLY ONCE A WEEK Non-VA SPIRONOLACTONE 25MG TAB 25MG BY MOUTH ONCE DAILY ACTIVE Non-VA TORSEMIDE 20MG TAB 20MG BY MOUTH EVERY MORNING FOR ACTIVE 90 DAYS AND 40MG BY MOUTH EVERY EVENING FOR 90 DAYS Non-VA WARFARIN (NON-VA) TAB 5 BY MOUTH EVERY DAY ACTIVE Allergies: PENICILLIN, SPIRONOLACTONE Date Vital Measurement Qualifiers 09/25/2024 13:45 Temp F (C) 98 (36.7) Pulse 58 Respir 18 BP 104/66 Wt lbs (kg)[BMI] 269 (122.02)[37*] Pain 1 POx (L/Min)(%) 94 At Rest FOCUSED EXAMINATION GEN: Well-developed nontoxic, NAD Vascular: 2+ DP right Neuro: Sensation grossly intact MSK: There is full range of motion of the digits consistent with age and body habitus. There is mild ecchymosis noted along the forefoot distally and along the digits without induration. There is no tenderness to direct palpation or manipulation of the digits in all evans. There is no laxity appreciated. MDM: No evidence of deformity. Discussed RICE treatment. Will order lidocaine patches for [address] pick pulling machine tender. Follow-up PCP if pain persists or for new concerns. RTC as needed. ASSESSMENT/PLAN Contusion of foot right As above able to verbalize understanding of plan of care and agrees. >> MEDICATIONS Reviewed and reconciled with /es/ NYASIA GRANDE MS,PA-C PHYSICIAN MANAGER REIMBURSEMENT Signed: 09/25/2024 13:53 NYASIA MCGRATH [facility]
--- OUTSIDE RECORDS SUMMARY | 2025-02-13 11:27 | XMS_ITS | Encounter Summary ---
Author Name [facility] ([place] Organization [facility] [place] Address [address] [place] [address] Care Team Providers Care Chemical Engraver Name Role Phone FERMIN MEJIA Primary Care [...] Name Patient's Relationship to Policy Mendiola [facility] ([facility]) MEDICARE ADVANTAGE [facility] ([facility]) Jul 31, 2017 [id number] STEVEN ALEXANDRE JR S PATIENT MEDICARE ([facility]) MEDICARE () PART A Mar 31, 2012 PART A [id number] BALDOMERO HORNESTEVEN S PATIENT MEDICARE (WN) MEDICARE () PART B Mar 31, 2012 PART B [id number] BALDOMERO HORNESTEVEN S PATIENT MEDICARE (WN) MEDICARE (M) PART B Mar 31, 2012 PART B [id number] VANDA ALEXANDRE JRLE S PATIENT MEDICARE ([facility]) MEDICARE (M) PART A Mar 31, 2012 PART A [id number] STEVEN ALEXANDRE JR PATIENT MEDICARE (WNR) MEDICARE (M) PART A Mar 31, 2012 PART A [id number] STEVEN ALEXANDRE JR S PATIENT MEDICARE (WNR) MEDICARE (M) PART B Mar 31, 2012 PART B [id number] STEVEN ALEXANDRE JR S PATIENT MEDICARE (WNR) MEDICARE (M) PART A Mar 31, 2012 PART A [id number] STEVEN ALEXANDRE JR PATIENT MEDICARE (WNR) MEDICARE (M) PART B Mar 31, 2012 PART B [id number] STEVEN ALEXANDRE JR S PATIENT MEDICARE (WNR) MEDICARE (M) PART A Mar 31, 2012 PART A [id number] STEVEN ALEXANDRE JR PATIENT MEDICARE (WNR) MEDICARE (M) PART B Mar 31, 2012 PART B [phone] [id number] STEVEN ALEXANDRE JR PATIENT MEDICARE PART D (WNR) PRESCRIPT ION PART D May 31, 2012 PART D [id number] [phone] STEVEN ALEXANDRE JR PATIENT MEDICARE PART D (WNR) PRESCRIPT ION PART D May 31, 2012 PART D [id number] STEVEN ALEXANDRE JR PATIENT Selected Encounter This section includes the information on record at [place] for the Encounter. Date/Time Encounter Type Encounter Description Reason Provider Source Aug 06, 2024 10:00 AM PSYTX W PT 45 [facility]ES [facility] - [facility] ICD-10-CM F43.12 Post-traumatic stress disorder, chronic ROSITA LARIOS [facility] Encounter Template Text not used by [place] Assessments - Encounter Diagnoses This section includes the primary and secondary diagnoses documented for the Encounter. Date/Time Primary/Secondary Diagnosis Diagnosis Name Provider Source Aug 06, 2024 11:47 AM PRIMARY Post-traumatic stress disorder, chronic JUAN LARIOS [facility] Plan of Treatment: Future Appointments (+ 6 months) and Future Tests (+/- 45 days) The Plan of Treatment section includes future care activities for the patient from all VA treatmentfacilities. This section includes future appointments and future orders which are active, pending or scheduled. Future Appointments This section includes appointments that were scheduled to occur 6 months from the date of the Encounter, up to a maximum of 20 appointments. The data comes from all [facility]. Appointment Date/Time Appointment Type Appointme nt Facility Name Aug 10, 2024 10:00 AM AMBULATORY - REHAB MEDICIN [facility] Aug 16, 2024 07:30 AM AMBULATORY - REHAB MEDICIN [facility] Aug 21, 2024 09:30 AM AMBULATORY - REHAB MEDICIN E [facility] Aug 23, 2024 07:30 AM AMBULATORY - REHAB MEDICIN [facility] Aug 28, 2024 08:30 AM AMBULATORY - MEDICINE [facility] Sep 03, 2024 07:30 AM [facility] Sep 03, 2024 09:00 AM AMBULATORY - PSYCHIATRY [facility] Sep 12, 2024 10:00 AM AMBULATORY - MEDICINE [facility] Sep 13, 2024 07:30 AM AMBULATORY - REHAB MEDICIN [facility] Sep 19, 2024 09:00 AM AMBULATORY - MEDICINE [facility] Sep 21, 2024 07:30 AM AMBULATORY - REHAB MEDICIN [facility] Sep 21, 2024 09:30 AM AMBULATORY - MEDICINE [facility] Sep 24, 2024 02:00 PM AMBULATORY - MEDICINE [facility] Sep 25, 2024 01:00 PM AMBULATORY - MEDICINE [facility] Sep 25, 2024 01:30 PM AMBULATORY - MEDICINE [facility] Sep 25, 2024 02:00 PM AMBULATORY - MEDICINE [place] [facility] Sep 26, 2024 08:30 AM AMBULATORY - MEDICINE [facility] Oct 03, 2024 09:30 AM AMBULATORY - MEDICINE [place] [facility] Oct 09, 2024 07:30 AM AMBULATORY - REHAB MEDICIN [facility] Oct 10, 2024 09:30 AM AMBULATORY - MEDICINE [place] [facility] Active, Pending, and Scheduled Orders This section includes a listing of several types of active, pending, and scheduled orders, including clinic medications orders, diagnostic test orders, procedure orders and consult orders; where the start date of the order is 45 days before the date of the Encounter or 45 days after the date of theEncounter. The data comes from all [place] treatment facilities. Test Date/Time Test Type Test Details Facility Name Aug 17, 2024 12:00 AM Laboratory - Chemi stry Order MICROALBUMIN CREATININE RATIO PANEL URINE (RANDOM) [facility] Aug 17, 2024 12:00 AM Laboratory - Chemi stry Order PSA BLOOD (SST-SERUM) [facility] Aug 17, 2024 12:00 AM Laboratory - Chemi stry Order VITAMIN D (25-OH) BLOOD (SST-SERUM) [facility] Aug 17, 2024 12:00 AM Laboratory - Chemi stry Order PT & INR (COUMADIN) BLOOD (BLUE-PLASMA) [facility] Aug 17, 2024 12:00 AM Laboratory - Chemi stry Order HEMOGLOBIN A1C PANEL BLOOD (LAV-BLOOD) [facility] Aug 17, 2024 12:00 AM Laboratory - Chemi stry Order TSH BLOOD (SST-SERUM) [facility] Aug 17, 2024 12:00 AM Laboratory - Chemi stry Order CBC AND DIFF (AUTO) BLOOD (LAV-BLOOD) [facility] Aug 17, 2024 12:00 AM Laboratory - Chemi stry Order MAGNESIUM BLOOD (SST-SERUM) [facility] Aug 17, 2024 12:00 AM Laboratory - Chemi stry Order LIPID PANEL FASTING BLOOD (SST-SERUM) [facility] Aug 17, 2024 12:00 AM Laboratory - Chemi stry Order LIVER FUNCTION BLOOD (SST-SERUM) [facility] Aug 17, 2024 12:00 AM Laboratory - Chemi stry Order BASIC METABOLIC PANEL (fasting) BLOOD (SST-SERUM) [facility] Aug 17, 2024 12:00 AM Laboratory - Chemi stry Order CALCIUM BLOOD (SST-SERUM) [facility] Aug 17, 2024 12:00 AM Laboratory - Chemi stry Order VITAMIN B12 BLOOD (SST-SERUM) [facility] Social History: Smoking Status (Most current) and Tobacco Use (All prior to encounter date) This section includes the most current, and the historical, smoking and tobacco- related health factors from the [place] facility where the Encounter took place. Current Smoking Status This section includes the most current smoking, or tobacco-related health factor, from the [place] facility where the Encounter took place. Date/Time Current Smoking Status Comment David craven Jun 18, 2022 09:00 AM VA-TOBACCO FORMER USER [facility] Tobacco Use History This section includes a history of the smoking, or tobacco-related health factors, that were collected on or before the date of the Encounter. The data comes from the [place] facility where the Encounter took place. Date/Time Smoking Status/Tobacco Use Comment F acility Jun 18, 2022 09:00 AM VA-TOBACCO QUIT 15 YRS OR MORE [facility] March 20, 2021 02:00 PM VA-TOBACCO FORMER USER [facility] March 20, 2021 02:00 PM VA-TOBACCO QUIT 15 YRS OR MORE [facility] May 25, 2018 08:15 AM VA-TOBACCO FORMER USER [facility] May 25, 2018 08:15 AM VA-TOBACCO QUIT 15 YRS OR MORE [facility] May 10, 2018 04:32 PM CURRENT SMOKER [facility] Oct 28, 2016 12:56 PM QUIT TOBACCO USE > 7 YEARS AGO stopped smoking 20 years ago [facility] Oct 30, 2015 12:58 PM QUIT TOBACCO USE > 7 YEARS AGO [facility] Radiology Reports: +/- 30 days of the [...] the Encounter. The data comes from all [place] treatment facilities. Date/Time Radiology Report Provider Source Aug 07, 2024 08:23 AM CHEST (2 VIEWS): CLAUDIA ALEXANDRE JR [id number] -[phone] Ex Date: AUG 07, 2024@08:23 Req Phys: FERMIN MEJIA Loc: CWM/SO/PACT 1 BLADE BALANCER (Req'g Loc) Img Loc: [facility] Service: Unknown [place] [facility] [address] (Case [id number] COMPLETE) CHEST (2 VIEWS) (RAD Detailed) CPT:77329 Reason for Study: Cough Clinical History: HFrEF, CAD, SILVIA, DM2, HTN Report Status: Verified Date Reported: AUG 07, 2024 Date Verified: AUG 07, 2024 Hearing Therapy Director E-Sig:/ES/DARRELL JONES JR Report: Study: PA and [...] Primary Interpreting Staff: DARRELL JONES JR, Radiologist (Hearing Therapy Director) /DARRELL SMITH JR [facility] Encounter Notes: All associated encounter notes This section contains the clinical notes associated to the Encounter. Date/Time Encounter Note(s) Provider Source Aug 06, 2024 11:21 AM PSYCHOLOGY NOTE: LOCAL TITLE: PSYCHOLOGY NOTE STANDARD TITLE: PSYCHOLOGY NOTE DATE OF NOTE: AUG 06, 2024@11:21 ENTRY DATE: AUG 06, 2024@11:22:28 AUTHOR: JUAN LARIOS WAR EXP COSIGNER: URGENCY: STATUS: COMPLETED VISIT DURATION 45 minutes DIAGNOSES: PTSD [employer] STATEMENT OF GOALS/CONCERNS: This was our first visit in over a year. Claudia made this appointment independently. He stated that he (i.e., his heart stopped) at home several weeks ago and that his implanted defibrilator cardioverted him. He stated that it was a reminder how nery life is. He stated that his relationship with his is stable and improved. He noted, however, that several members of his family on the [facility] are experiencing significant difficulties (e.g., homelessness, criminal behavior, etc.). 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 He stated that he is tolerant of his brothers' behavior and continues to experience less anger/irritation. SESSION FOCUS: Assessing his symptoms/functioning. Treatment planning. INTERVENTIONS: Psychotherapeutic Interventions: I asked what prompted him to schedule today's appointment and then adopted a non-directive approach as he told me about his brush with . I asked clarifying quesitons about his family's difficulties on the [facility]. I also assessed his mood and irritability. We also discussed whether he wants future sessions. ASSESSMENT: BRIEF ASSESSMENT OF MENTAL STATUS: 1. Appearance (grooming, attire, apparent age) within normal limits: Yes 2. Thought content was organized and goal directed: Yes 3. Speech was coherent and unimpaired: Yes 4. Affect was appropriate and unremarkable: Yes 5. Demeanor was calm, with no signs of agitation or restlessness: Yes 6. Sleep was largely unimpaired and restful: Yes 7. No evidence of psychosis (hallucinations or delusions): Yes 8. Mood was normal: Yes Other Observations: RISK ASSESSMENT: Denies current suicidal ideation PLAN FOR FOLLOW-UP: Next session planned for: I will place an RTC for several weeks from now, at his request. /clint/ JUAN LARIOS, PH.D. PSYCHOLOGIST Signed: 08/06/2024 11:[address] [facility]
--- OUTSIDE RECORDS SUMMARY | 2025-02-13 11:27 | XMS_ITS | Encounter Summary ---
Author Name [facility] [facility] Address [address] [place] [address] Care Team Providers Care Payroll And Benefits Analyst Name Role Phone FERMIN MEJIA Primary Care [...] Name Patient's Relationship to Policy Mendiola [facility] ([facility]) MEDICARE ADVANTAGE [facility] ([facility]) Jul 31, 2017 [id number] STEVEN ALEXANDRE JR S PATIENT MEDICARE ([facility]) MEDICARE () PART A Mar 31, 2012 PART A [id number] STEVEN ALEXANDRE JR S PATIENT MEDICARE ([facility]) MEDICARE () PART B Mar 31, 2012 PART B [id number] STEVEN ALEXANDRE JR S PATIENT MEDICARE ([facility]) MEDICARE () PART A Mar 31, 2012 PART A [id number] STEVEN ALEXANDRE JR S PATIENT MEDICARE ([facility]) MEDICARE () PART B Mar 31, 2012 PART B [id number] [phone] STEVEN ALEXANDRE JR PATIENT MEDICARE (WNR) MEDICARE (M) PART A Mar 31, 2012 PART A [id number] [phone] STEVEN ALEXANDRE JR S PATIENT MEDICARE (WNR) MEDICARE (M) PART B Mar 31, 2012 PART B [id number] [phone] STEVEN ALEXANDRE JR S PATIENT MEDICARE (WNR) MEDICARE (M) PART A Mar 31, 2012 PART A [id number] [phone] STEVEN ALEXANDRE JR S PATIENT MEDICARE (WNR) MEDICARE (M) PART B Mar 31, 2012 PART B [id number] [phone] STEVEN ALEXANDRE JR S PATIENT MEDICARE (WNR) MEDICARE (M) PART A Mar 31, 2012 PART A [id number] STEVEN ALEXANDRE JR S PATIENT MEDICARE (WNR) MEDICARE (M) PART B Mar 31, 2012 PART B [id number] STEVEN ALEXANDRE JR PATIENT MEDICARE PART D (WNR) PRESCRIPT ION PART D May 31, 2012 PART D [id number] [phone] STEVEN ALEXANDRE JR PATIENT MEDICARE PART D (WNR) PRESCRIPT ION PART D May 31, 2012 PART D [id number] STEVEN ALEXANDRE JR PATIENT Selected Encounter This section includes the information on record at [place] for the Encounter. Date/Time Encounter Type Encounter Description Reason Provider Source Feb 12, 2025 08:00 AM OFF/OP EST FEBRUARY X [facility]Q [facility] ICD-10-CM Z71.89 Other specified counseling CRUZ PLASENCIA Leonardo Encounter Template Text not used by [place] Assessments - Encounter Diagnoses This section includes the primary and secondary diagnoses documented for the Encounter. Date/Time Primary/Secondary Diagnosis Diagnosis Name Provider Source Feb 12, 2025 03:30 PM PRIMARY Other specified counseling CRUZ PLASENCIA Plan of Treatment: Future Appointments (+ 6 [...] 20 appointments. The data comes from all [place] treatment facilities. Appointment Date/Time Appointment Type Appointme nt Facility Name March 07, 2025 08:00 AM AMBULATORY - PSYCHIATRY [facility] March 12, 2025 10:00 AM [place] [facility] [place] [facility] May 14, 2025 02:00 PM AMBULATORY - MEDICINE [facility] Jun 06, 2025 08:30 AM AMBULATORY - MEDICINE [facility] Jul 24, 2025 08:30 AM AMBULATORY - NONE [facility] [place] [facility] Social History: Smoking Status (Most current) and Tobacco Use (All prior to encounter date) This section includes the most current, and the historical, smoking and tobacco- related health factors from the [place] facility where the Encounter took place. Current Smoking Status This section includes the most current smoking, or tobacco-related health factor, from the [place] facility where the Encounter took place. Date/Time Current Smoking Status Comment David craven Jun 18, 2022 09:00 AM VA-TOBACCO FORMER USER [facility] Tobacco Use History This section includes a history of the smoking, or tobacco-related health factors, that were collected on or before the date of the Encounter. The data comes from the [place] facility where the Encounter took place. Date/Time Smoking Status/Tobacco Use Comment F kg Jun 18, 2022 09:00 AM VA-TOBACCO QUIT 15 YRS OR MORE [facility] March 20, 2021 02:00 PM VA-TOBACCO FORMER USER [facility] March 20, 2021 02:00 PM VA-TOBACCO QUIT 15 YRS OR MORE [facility] May 25, 2018 08:15 AM VA-TOBACCO FORMER USER [facility] May 25, 2018 08:15 AM VA-TOBACCO QUIT 15 YRS OR MORE [facility] May 10, 2018 04:32 PM CURRENT SMOKER [facility] Oct 28, 2016 12:56 PM QUIT TOBACCO USE > 7 YEARS AGO stopped smoking 20 years ago [facility] Oct 30, 2015 12:58 PM QUIT TOBACCO USE > 7 YEARS AGO [facility] Encounter Notes: All associated encounter notes This section contains the clinical notes associated to the Encounter. Date/Time Encounter Note(s) Provider Source Feb 12, 2025 03:24 PM SOCIAL WORK NOTE: LOCAL TITLE: SOCIAL WORK NOTE STANDARD TITLE: SOCIAL WORK NOTE DATE OF NOTE: FEB 12, 2025@15:24 ENTRY DATE: FEB 12, 2025@15:24:13 AUTHOR: CRUZ PLASENCIA COSIGNER: URGENCY: STATUS: COMPLETED [place] referred to this worker after the recent departure of his psychotherapist, he is referred for supportive visits, this is our first visit. He spoke well of his treatment w Too Godwin and Josseline Keane, they helped him w his anger and family relationships. He spoke mostly of his health, mainly cardiac conditions. At this time he is feeling well, relatively stable, waiting a referral to cardiac rehab. 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 Bright mood, talkative, able to explain himself well. rtc placed. /clint/ PARVIZ Cevallos ROLL HANDLER Signed: 02/12/2025 15:30 [facility]
--- OUTSIDE RECORDS SUMMARY | 2025-02-13 11:27 | XMS_ITS | Encounter Summary ---
Author Name [facility] [place] Address [address] [place] [address] Care Team Providers Care Blueprint Tracer Name Role Phone FERMIN MEJIA Primary Care [...] Name Patient's Relationship to Policy [place] [facility] ([place]) MEDICARE ADVANTAGE [facility] ([place]) Jul 31, 2017 [id number] STEVEN ALEXANDRE JR S PATIENT MEDICARE ([place]) MEDICARE (M) PART A Mar 31, 2012 PART A [id number] VANDA ALEXANDRE JRLE S PATIENT MEDICARE (WNR) MEDICARE (M) PART B Mar 31, 2012 PART B [id number] BALDOMERO HORNESTEVEN S PATIENT MEDICARE (WNR) MEDICARE (M) PART A Mar 31, 2012 PART A [id number] STEVEN ALEXANDRE JR S PATIENT MEDICARE ([place]) MEDICARE (M) PART B Mar 31, 2012 PART B [id number] STEVEN ALEXANDRE JR PATIENT MEDICARE (WNR) MEDICARE (M) PART A Mar 31, 2012 PART A [id number] [phone] STEVEN ALEXANDRE JR S PATIENT MEDICARE (WNR) MEDICARE (M) PART B Mar 31, 2012 PART B [id number] [phone] STEVEN ALEXANDRE JR S PATIENT MEDICARE (WNR) MEDICARE (M) PART A Mar 31, 2012 PART A [id number] [phone] STEVEN ALEXANDRE JR S PATIENT MEDICARE (WNR) MEDICARE (M) PART B Mar 31, 2012 PART B [id number] STEVEN ALEXANDRE JR S PATIENT MEDICARE (WNR) MEDICARE (M) PART A Mar 31, 2012 PART A [id number] STEVEN ALEXANDRE JR PATIENT MEDICARE (WNR) MEDICARE (M) PART B Mar 31, 2012 PART B [id number] STEVEN ALEXANDRE JR PATIENT MEDICARE PART D (WNR) PRESCRIPT ION PART D May 31, 2012 PART D [id number] [phone] STEVEN ALEXANDRE JR PATIENT MEDICARE PART D (WNR) PRESCRIPT ION PART D May 31, 2012 PART D [id number] STEVEN ALEXANDRE JR PATIENT Selected Encounter This section includes the information on record at [place] for the Encounter. Date/Time Encounter Type Encounter Description Reason Provider Source Apr 23, 2024 08:30 AM OFFICE O/P EST MOD 30 MIN PRIMARY CARE/MEDICINE ICD-10-CM I50.9 Heart failure, unspecified FERMIN MEJIA Leonardo Encounter Template Text not used by [place] Assessments - Encounter Diagnoses This section includes the primary and secondary diagnoses documented for the Encounter. Date/Time Primary/Secondary Diagnosis Diagnosis Name Provider Source Apr 23, 2024 09:22 AM PRIMARY Heart failure, unspecified FERMIN MEJIA Apr 23, 2024 09:22 AM SECONDARY Chronic kidney disease, stage 3b FERMIN MEJIA Apr 23, 2024 09:22 AM SECONDARY Essential (primary) hypertension FERMIN MEJIA Apr 23, 2024 09:22 AM SECONDARY Gout, unspecified FERMIN MEJIA [facility] Apr 23, 2024 09:22 AM SECONDARY Sleep apnea, unspecified FERMIN MEJIA [facility] Apr 23, 2024 09:22 AM SECONDARY Type 2 diabetes mellitus without complications FERMIN MEJIA [facility] Plan of Treatment: Future Appointments (+ 6 months) and Future Tests (+/- 45 days) The Plan of Treatment section includes future care activities for the patient [facility] This section includes future appointments and future orders which are active, pending or scheduled. Future Appointments This section includes appointments that were scheduled to occur 6 months from the date of the Encounter, up to a maximum of 20 appointments. The data comes from all [place] treatment [facility]. Appointment Date/Time Appointment Type Appointme nt Facility Name Apr 24, 2024 09:00 AM AMBULATORY - MEDICINE [facility] [place] [facility] Apr 24, 2024 01:00 PM AMBULATORY - REHAB MEDICIN E [facility] [place] [facility] May 16, 2024 08:30 AM AM[facility]ULATORY - MEDICINE [facility] Jul 24, 2024 01:00 PM AMBULATORY - NONE [place] [facility] [place] [facility] Jul 27, 2024 08:00 AM AMBULATORY - REHAB MEDICIN E [facility] Aug 02, 2024 09:30 AM AMBULATORY - MEDICINE [place] [facility] [facility] Aug 02, 2024 02:30 PM [facility]ULATORY - MEDICINE [facility] Aug 03, 2024 09:00 AM AMBULATORY - REHAB MEDICIN [facility] Aug 06, 2024 10:00 AM AMBULATORY - PSYCHIATRY [facility] Aug 06, 2024 03:30 PM AMBULATORY - REHAB MEDICIN E [facility] Aug 10, 2024 10:00 AM AMBULATORY - REHAB MEDICIN E [facility] Aug 16, 2024 07:30 AM AMBULATORY - REHAB MEDICIN E [facility] Aug 21, 2024 09:30 AM AMBULATORY - REHAB MEDICIN E [facility] Aug 23, 2024 07:30 AM AMBULATORY - REHAB MEDICIN E [place] Aug 28, 2024 08:30 AM AMBULATORY - MEDICINE [place] [facility] [place] [place] [facility] Sep 03, 2024 07:30 AM AMBULATORY - REHAB MEDICIN E [facility] Sep 03, 2024 09:00 AM AMBULATORY - PSYCHIATRY [facility] Sep 12, 2024 10:00 AM AMBULATORY - MEDICINE [facility] Sep 13, 2024 07:30 AM AMBULATORY - REHAB MEDICIN [facility] Sep 19, 2024 09:00 AM AM[facility]ULAT[facility] Active, Pending, and Scheduled Orders This section includes a listing of several types of active, pending, and scheduled orders, including clinic medications orders, diagnostic test orders, procedure orders and consult orders; where the start date of the order is 45 days before the date of the Encounter or 45 days after the date of theEncounter. The data comes from all [facility] facilities. Test Date/Time Test Type Test Details Facility Name March 26, 2024 12:00 AM Laboratory - Chemi stry Order BASIC METABOLIC PANEL (fasting) BLOOD (SST-SERUM) [facility] March 26, 2024 12:00 AM Laboratory - Chemi stry Order LIVER FUNCTION BLOOD (SST-SERUM) [facility] March 26, 2024 12:00 AM Laboratory - Chemi stry Order LIPID PANEL FASTING BLOOD (SST-SERUM) [facility] March 26, 2024 12:00 AM Laboratory - Chemi stry Order HEMOGLOBIN A1C PANEL BLOOD (LAV-BLOOD) [facility] March 26, 2024 12:00 AM Laboratory - Chemi stry Order VITAMIN D (25-OH) BLOOD (SST-SERUM) [facility] March 26, 2024 12:00 AM Laboratory - Chemi stry Order CBC BLOOD (LAV-BLOOD) [facility] Apr 20, 2024 12:00 AM Laboratory - Chemi stry Order BASIC METABOLIC PANEL (fasting) BLOOD (SST-SERUM) [facility] Apr 20, 2024 12:00 AM Laboratory - Chemi stry Order LIVER FUNCTION BLOOD (SST-SERUM) [facility] Apr 20, 2024 12:00 AM Laboratory - Chemi stry Order LIPID PANEL FASTING BLOOD (SST-SERUM) [facility] Apr 20, 2024 12:00 AM Laboratory - Chemi stry Order HEMOGLOBIN A1C PANEL BLOOD (LAV-BLOOD) [facility] Apr 20, 2024 12:00 AM Laboratory - Chemi stry Order VITAMIN D (25-OH) BLOOD (SST-SERUM) [facility] Apr 20, 2024 12:00 AM Laboratory - Chemi stry Order CBC BLOOD (LAV-BLOOD) [facility] Vital Signs: All taken on the encounter date This section contains inpatient and outpatient Vital Signs collected on the date of the Encounter. Date/Time Temperature Pulse Blood Pressure Respiratory Rate SP02 Pain Height Weight Body Mass Index Source Apr 23, 2024 08:34 AM 97.1 60 104/62 18 97 1 72 260 35 [facility] Social History: Smoking Status (Most current) and Tobacco Use (All prior to encounter date) This section includes the most current, and the historical, smoking and tobacco- related health factors from the [place] facility where the Encounter took place. Current Smoking Status This section includes the most current smoking, or tobacco-related health factor, from the [place] facility where the Encounter took place. Date/Time Current Smoking Status Comment Facil ity Jun 18, 2022 09:00 AM VA-TOBACCO FORMER USER [facility] Tobacco Use History This section includes a history of the smoking, or tobacco-related health factors, that were collected on or before the date of the Encounter. The data comes from the [place] facility where the Encounter took place. Date/Time Smoking Status/Tobacco Use Comment F acility Jun 18, 2022 09:00 AM VA-TOBACCO QUIT 15 YRS OR MORE [facility] March 20, 2021 02:00 PM VA-TOBACCO FORMER USER [facility] March 20, 2021 02:00 PM VA-TOBACCO QUIT 15 YRS OR MORE [facility] May 25, 2018 08:15 AM VA-TOBACCO FORMER USER [facility] May 25, 2018 08:15 AM VA-TOBACCO QUIT 15 YRS OR MORE [facility] May 10, 2018 04:32 PM CURRENT SMOKER [facility] Oct 28, 2016 12:56 PM QUIT TOBACCO USE > 7 YEARS AGO stopped smoking 20 years ago [facility] Oct 30, 2015 12:58 PM QUIT TOBACCO USE > 7 YEARS AGO [facility] Encounter Notes: All associated encounter notes This section contains the clinical notes associated to the Encounter. Date/Time Encounter Note(s) Provider Source Apr 23, 2024 09:13 AM PRIMARY CARE NURSE PRACTITIONER OUTPATIENT NOTE: LOCAL TITLE: NURSE PRACTITIONER OUTPATIENT NOTE STANDARD TITLE: PRIMARY CARE NURSE PRACTITIONER OUTPATIENT NOTE DATE OF NOTE: APR 23, 2024@09:13 ENTRY DATE: APR 23, 2024@09:13:57 AUTHOR: FERMIN MEJIA COSIGNER: URGENCY: STATUS: COMPLETED PRIMARY CARE VISIT CLAUDIA ALEXANDRE, is a 69 yo BLACK OR MALE [place] who [facility] the [place] [facility]. TYPE OF VISIT: Face to face 69-year-old gentleman with an extensive past medical history including HFrEF, CKD stage IIIb, anemia of chronic disease, type II DM, gout, HTN, HLD, SILVIA on BiPAP dependent on overnight oxygen, mechanical heart valve, and paroxysmal atrial fibrillation presented to the outpatient clinic in regular follow-up. He is comanaged with a community PCP. He was hospitalized earlier this month for acute on chronic hypoxic respiratory failure secondary to acute on chronic HFrEF. During that hospitalization, torsemide dose was changed to 20 mg a.m., 40 mg p.m. These are prescribed by his community PCP who follows him closely. Today, he is requesting an OT referral for walk-in shower. Recent labs and diagnostic studies were reviewed with the . All medications were reconciled during this visit. HEALTHCARE PROVIDERS: Community PCP: Josiah Akers at [facility] Pulmonology: Dr. Lala, [facility] Cardiology: Dr. Ibrahim, [facility] Ortho: ARABELLA General surgery: [facility] Nephrology: Dr. Ham Social Hx: [place] is and lives with his . He stopped smoking in 1998. No alcohol or MJ. 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 No regular exercise due to baseline poor functional status. HISTORY: PERIOD OF SERVICE - [employer] FROM Apr TO Dec COMBAT SERVICE INDICATED: No MEDICAL HISTORY Active Problem Contusion S70.01XS 04/01/2023 RIZWANA MARTINES Contusion of right shoulder S40.011 04/01/2023 RIZWANA MARTINES CHF - Congestive Heart Failure (SCT 12/01/2022 RIZWANA MARTINES Anaemia due to blood loss D62. 09/28/2022 RIZWANA MARTINES Chronic Kidney Disease Stage 3B (SC 09/28/2022 RIZWANA MARTINES Tubular adenoma D13.1 06/18/2022 FLORES LOCKWOOD Ex-smoker Z87.891 04/02/2022 FLORES LOCKWOOD Erectile dysfunction N52.9 12/14/2021 FLORES LOCKWOOD Microscopic hematuria R31.29 12/14/2021 FLORES LOCKWOOD Sleep apnea G47.30 05/26/2021 FLORES LOCKWOOD Lower urinary tract symptoms due [...] E11.9 10/30/2015 IZABELA HOLLAND VITAL SIGNS: Temperature 97.1 F [36.2 C] (04/23/2024 08:34) Blood Pressure 104/62 (04/23/2024 08:34) Pulse 60 (04/23/2024 08:34) Respiration 18 (04/23/2024 08:34) Pain 1 (04/23/2024 08:34) BMI BMI: 35.3 Weight 260 lb [117.93 kg] (04/23/2024 08:34) Pulse Oximetry 97% (04/23/2024 08:34) ASSISTIVE DEVICES: Cane REVIEW OF SYSTEMS: CONSTITUTIONAL: No fevers, chills, [...] EOMI. Anicteric sclerae. ENT: Moist oral mucosa. Posterior pharynx unremarkable Neck: Supple. No JVD. No LAD. No bruit. Lungs: CTA. Normal chest excursion. Eupneic respirations. CV: Appears euvolemic. Heart tones S1, S2. RRR. No M/G/R. GI: Abdomen is soft and nontender. No HSM. : No CVA tenderness. Ext: No cyanosis or clubbing. No gross deformities. Neuro: CN II through XII grossly intact. Normal speech. Integument: Skin warm and dry. No concerning rashes or lesions. Psych: Normal mood and affect. Normal judgment. ALLERGIES: ========= PENICILLIN, SPIRONOLACTONE >> HEALTH MAINTENANCE PREVENTIVE MEDICINE GOALS Info Only: [facility] Video Connect Capable DUE NOW Advance Directive Screen AD Apr 13 Home Telehealth (CCHT) Referral DUE NOW Mental Health Treatment Plan DUE NOW Medication Reconciliation DUE NOW COVID-19 Immunization DUE NOW (Optional) Whole Health Documentation DUE NOW ASSESSMENT/PLAN: Active problems - Computerized Problem List is the source for the followin. Contusion 2. Contusion of right shoulder 3. CHF - Congestive Heart Failure (RUST [id number]): HFrEF followed by [facility] cardiology, Dr. Ibrahim and maintained on beta-jossue, CCB, statin, torsemide, and spironolactone. Noted listed allergy to spironolactone but the states he has been tolerating this medication for years. 4. Anaemia due to blood loss 5. Chronic Kidney Disease Stage 3B (RUST [id number]): eGFR 31 in September. No recent labs as this is followed by nephrology and his community PCP. Recommended he stop allopurinol given diminished renal function; he will talk with his community PCP and nephrology. 6. Tubular adenoma 7. Ex-smoker 8. Erectile dysfunction 9. Microscopic hematuria 10. Sleep apnea 11. Lower urinary tract symptoms due to benign prostatic hypertrophy 12. Long-term current use of anticoagulant 13. Gout: Recommended stopping allopurinol given decreased renal function. He will review with his see pyrotechnic mixer. 14. Onychomycosis of toenails 15. Chronic post-traumatic stress disorder 16. Cardiac pacemaker in situ 17. Asthma 18. Benign hypertension: Stable on several agents including amlodipine and carvedilol, torsemide, and spironolactone prescribed by outside providers. 19. Heart disease 20. Low back pain 21. Diabetes mellitus: HbA1c 6.4% in September. Again, followed closely by his community PCP and maintained on insulin glargine. FOLLOW UP: RTC Below & sooner PRN UPCOMING APPOINTMENTS: 04/26/2024 08:30 CWM/NO/DENTAL/RDH1 AM 05/16/2024 08:30 CWM/SO/PODIATRY/ROSS 08/02/2024 14:30 CWM/SO/PACT 1 CASE PREPARER AND LINER 08/28/2024 08:30 NHM/OPTOMETRY/BEARD/ 35 minutes spent in patient evaluation, data review, and patient education. All medications were reconciled during this visit. No barriers; Patient understands and agrees to current treatment plan. If pt has any questions, concerns, or changes in current health status he/she will call or come in to the [facility]. Medication Reconciliation: Outpatient: Has the patient been taking medications as documented in the EMLR? YES: The patient has been taking medications as documented in the EMLR. Essential Medication List for Review used to complete this medication reconciliation. INCLUDED IN THIS LIST: Alphabetical list of active outpatient prescriptions dispensed from this VA (local) and dispensed from another VA or [facility] facility (remote) as well as [...] whether with a VA or non-VA provider. /clint/ FERMIN MEJIA NP NURSE PRACTITIONER Signed: 04/23/2024 09:22 FERMIN MEJIA Apr 23, 2024 08:37 AM PREVENTIVE MEDICIN E NURSING NOTE: LOCAL TITLE: CLINICAL REMINDERS/NURSING STANDARD TITLE: PREVENTIVE MEDICINE NURSING NOTE DATE OF NOTE: APR 23, 2024@08:37 ENTRY DATE: APR 23, 2024@08:37:46 AUTHOR: ALBERTO DELCID EXP COSIGNER: URGENCY: STATUS: COMPLETED The [place] was given an advanced directive to complete on his own. Suicide Screen: C-SSRS Screening [place] Suicide Severity Rating Scale (C-SSRS) screener 1. Over the past month, have you wished you were or wished you could go to sleep and not wake up? No 2. Over the past month, have you had any actual thoughts of killing yourself? No 3. Over the past month, have you been thinking about how you might do this? Response not required due to responses to other questions. 4. Over the past month, have you had these thoughts and had some intention of acting on them? Response not required due to responses to other questions. 5. Over the past month, have you started to work out or worked out the details of how to kill yourself? Response not required due to responses to other questions. 6. If yes, at any time in the past month did you intend to carry out this plan? Response not required due to responses to other questions. 7. In your lifetime, have you ever done anything, started to do anything, or prepared to do anything to end your life (for example, collected pills, obtained a gun, gave away valuables, went to the roof but didn't jump)? No 8. If YES, was this within the past 3 months? Response not required due to responses to other questions. Toxic Exposure Screening: The [place]/caregiver was asked if they believe the [place] experienced any toxic exposure(s), such as Airborne Hazards and Open Burn Pit, [place] War related exposures, Agent Dub[place], Radiation, contaminated water at [place] or other such exposures, while serving in the Armed Forces. has no concerns about toxic exposure(s) while serving in the Armed Forces. The /caregiver was informed that we will continue to ask this screening question every 5 years. They can contact their provider/healthcare team if they have concerns about exposures and would like to be screened sooner. Printed information was offered and provided if desired. BMI>30/>24.99 High Risk: At this visit, the health risks of obesity were reviewed and discussed with the [place], and the benefits of a weight management treatment program, such as [facility]! was discussed and offered to the . After discussing the health risks of being overweight or obese and providing information about available weight management treatment, and offering a referral to [facility] or another weight management treatment program outside the [facility], the patient DECLINES REFERRAL to [facility] or any other weight management treatment program at this time. Homelessness/Food Insecurity Screen: In the past 2 months, have you been living in stable housing that you own, rent, or stay in as part of a household? Yes - Living in stable housing. Are you worried or concerned that in the next 2 months you may NOT have stable housing that you own, rent, or stay in as part of a household? No - Not worried about housing near future The reports the following: Within the past 12 months, you worried whether your food would run out before you got money to buy more. Never true Within the past 12 months, the food you bought just didn't last and you didn't have money to get more. Never true Depression Screening: Perform PHQ-2 A PHQ-2 screen was performed. The score was 0 which is a negative screen for depression. Over the past two weeks, how often have you been bothered by the following problems? 1. Little interest or pleasure in doing things Not at all 2. Feeling down, depressed, or hopeless Not at all Influenza Immunization: No influenza vaccination was received during the recent influenza season. The Med rec will be completed by the PCP. Alcohol Use Screen (AUDIT-C): Alcohol Screen: SCREEN FOR ALCOHOL (AUDIT-C) An alcohol screening test (AUDIT-C) was negative (score=0). 1. How often did you have a drink containing alcohol in the past year? Consider a drink to be a 12 ounce can or bottle of regular beer, 8 ounces of malt liquor, a 5 ounce glass of table wine, or a 1.5 ounce shot of liquor (like scotch, gin, or vodka). Never 2. How many drinks containing alcohol did you have on a typical day when you were drinking in the past year? Response not required due to responses to other questions. 3. How often did you have six or more drinks on one occasion in the past year? Response not required due to responses to other questions. RHS Screen: RHS Screen Environmental Check Upon inquiry, the individual reports that the environment is safe to proceed. Informed Consent to Screen and Document The individual consents to proceed with screening. The individual consents to documentation of responses. PRIMARY SCREEN: In the past 12 months, how often did a current or former intimate partner (e.g., boyfriend, girlfriend, , , sexual partner): 1. Scream or curse at you Never 2. Insult or talk down to you Never 3. Threaten you with harm Never 4. Physically hurt you Never 5. Force or pressure you to have sexual contact against your will, or when you were unable to say no Never ?? The HITS tool (items 1-4 above) is US copyright protected by Buddy Mckeon MD, and the user has full rights to use it throughout the [place] system. PRIMARY SCREEN RESULT: The Primary Screen is NEGATIVE. The individual answered never to all forms of IPV above (i.e., answered never to all 5 items) The individual accepts education and/or resources: Yes - Offered verbal universal education about IPV EDUCATION: The individual indicated readiness to learn. Education offered during this session as noted above. The individual indicated understanding by asking relevant questions and making appropriate comments. No barriers to learning were observed or identified. /clint/ ALBERTO DELCID LPN LICENSED PRACTICAL NURSE Signed: 04/23/2024 08:44 ALBERTO DELCIDNMERIN [facility]
--- OUTSIDE RECORDS SUMMARY | 2025-02-13 11:27 | XMS_ITS | Encounter Summary ---
Author Name [facility] [place] [facility] [place] [facility] [facility] [place] Address [address] [place] [address] Care Team Providers Care Telephone Clerk Telegraph Office Name Role Phone FERMIN MEJIA Primary Care [...] Name Patient's Relationship to Policy [facility] ([facility]) MEDICARE ADVANTAGE [facility] ([facility]) Jul 31, 2017 [id number] STEVEN ALEXANDRE JR S PATIENT MEDICARE ([facility]) MEDICARE (M) PART A Mar 31, 2012 PART A [id number] BALDOMERO HORNESTEVEN S PATIENT MEDICARE ([facility]) MEDICARE (M) PART B Mar 31, 2012 PART B [id number] BALDOMERO HORNESTEVEN S PATIENT MEDICARE ([facility]) MEDICARE (M) PART A Mar 31, 2012 PART A [id number] BALDOMERO HORNESTEVEN S PATIENT MEDICARE ([facility]) MEDICARE (M) PART A Mar 31, 2012 PART A [id number] STEVEN ALEXANDRE JR PATIENT MEDICARE (WNR) MEDICARE (M) PART B Mar 31, 2012 PART B [id number] STEVEN ALEXANDRE JR PATIENT MEDICARE (WNR) MEDICARE (M) PART B Mar 31, 2012 PART B [id number] [phone] STEVEN ALEXANDRE JR PATIENT MEDICARE (WNR) MEDICARE (M) PART A Mar 31, 2012 PART A [id number] STEVEN ALEXANDRE JR PATIENT MEDICARE (WNR) MEDICARE (M) PART A Mar 31, 2012 PART A [id number] [phone] STEVEN ALEXANDRE JR PATIENT MEDICARE (WNR) MEDICARE (M) PART B Mar 31, 2012 PART B [id number] STEVEN ALEXANDRE JR PATIENT MEDICARE (WNR) MEDICARE (M) PART B Mar 31, 2012 PART B [id number] [phone] STEVEN ALEXANDRE JR PATIENT MEDICARE PART D (WNR) PRESCRIPT ION PART D May 31, 2012 PART D [id number] [phone] STEVEN ALEXANDRE JR PATIENT MEDICARE PART D (WNR) PRESCRIPT ION PART D May 31, 2012 PART D [id number] STEVEN ALEXANDRE JR PATIENT Selected Encounter This section includes the information on record at [place] for [place]. Date/Time Encounter Type Encounter Description Reason Pro vider Source Apr 26, 2024 08:30 AM Outpatient Encounter DENTAL IHE Encounter Template Text not used by [place] Plan of Treatment: Future Appointments (+ 6 months) and Future Tests (+/- 45 days) The Plan of Treatment section includes future care activities for the patient from all [place] treatmentfacilities. This section includes future appointments and future orders which are active, pending or scheduled. Future Appointments This section includes appointments that were scheduled to occur 6 months from the date of the Encounter, up to a maximum of 20 appointments. The data comes from all [place] treatment facilities. Appointment Date/Time Appointment Type Appointme nt Facility Name May 16, 2024 08:30 AM AMBULATORY - MEDICINE [facility] [place] Jul 24, 2024 01:00 PM AMBULATORY - NONE [facility] [place] [facility] Jul 27, 2024 08:00 AM AMBULATORY - [facility] [place] Aug 02, 2024 09:30 AM AMBULATORY - [facility]ICINE [facility] [place] [facility] Aug 02, 2024 02:30 PM AMBULATORY - MEDICINE [facility] Aug 03, 2024 09:00 AM AMBULATORY - RE[facility]AB [facility] Aug 06, 2024 10:00 AM AMBULATORY - PSYCHIATRY [facility] Aug 06, 2024 03:30 PM AMBULATORY - [facility]IC[facility] [place] Aug 10, 2024 10:00 AM AMBULATORY - RE[facility] Aug 16, 2024 07:30 AM AMBULATORY - RE[facility]AB [facility] Aug 21, 2024 09:30 AM AMBULATORY - [facility] [place] Aug 23, 2024 07:30 AM AMBULATORY - [facility] [place] Aug 28, 2024 08:30 AM AMBULATORY - [place]ICINE [place] [facility] [place] [facility] Sep 03, 2024 07:30 AM AMBULATORY - [facility] [place] Sep 03, 2024 09:00 AM AMBULATORY - PSYCHIATRY [facility] Sep 12, 2024 10:00 AM AMBULATORY - MEDICINE [place] [facility] [place] [facility] Sep 13, 2024 07:30 AM AMBULATORY - REHAB [facility] Sep 19, 2024 09:00 AM AMBULATORY - MEDICINE [place] [facility] [place] [facility] Sep 21, 2024 07:30 AM AMBULATORY - REHAB [facility] Sep 21, 2024 09:30 AM AMBULATORY - MEDICINE [place] [facility] [place] [facility] Active, Pending, and Scheduled Orders This section includes a listing of several types of active, pending, and scheduled orders, including clinic medications orders, diagnostic test orders, procedure orders and consult orders; where the start date of the order is 45 days before the date of the Encounter or 45 days after the date of theEncounter. The data comes from all [place] treatment [facility]. Test Date/Time Test Type Test Details Facility Name March 26, 2024 12:00 AM Laboratory - Chemi stry Order BASIC METABOLIC PANEL (fasting) BLOOD (SST-SERUM) [facility] March 26, 2024 12:00 AM Laboratory - Chemi stry Order LIVER FUNCTION BLOOD (SST-SERUM) [facility] March 26, 2024 12:00 AM Laboratory - Chemi stry Order LIPID PANEL FASTING BLOOD (SST-SERUM) [facility] March 26, 2024 12:00 AM Laboratory - Chemi stry Order HEMOGLOBIN A1C PANEL BLOOD (LAV-BLOOD) [facility] March 26, 2024 12:00 AM Laboratory - Chemi stry Order VITAMIN D (25-OH) BLOOD (SST-SERUM) [facility] March 26, 2024 12:00 AM Laboratory - Chemi stry Order CBC BLOOD (LAV-BLOOD) [facility] Apr 20, 2024 12:00 AM Laboratory - Chemi stry Order LIVER FUNCTION BLOOD (SST-SERUM) [facility] Apr 20, 2024 12:00 AM Laboratory - Chemi stry Order BASIC METABOLIC PANEL (fasting) BLOOD (SST-SERUM) [facility] Apr 20, 2024 12:00 AM Laboratory - Chemi stry Order LIPID PANEL FASTING BLOOD (SST-SERUM) [facility] Apr 20, 2024 12:00 AM Laboratory - Chemi stry Order HEMOGLOBIN A1C PANEL BLOOD (LAV-BLOOD) [facility] Apr 20, 2024 12:00 AM Laboratory - Chemi stry Order CBC BLOOD (LAV-BLOOD) [facility] Apr 20, 2024 12:00 AM Laboratory - Chemi stry Order VITAMIN D (25-OH) BLOOD (SST-SERUM) [facility] Social History: Smoking Status (Most current) and Tobacco Use (All prior to encounter date) This section includes the most current, and the historical, smoking and tobacco- related health factors from the [place] facility where the Encounter took place. Current Smoking Status This section includes the most current smoking, or tobacco-related health factor, from the [place] facility where the Encounter took place. Date/Time Current Smoking Status Comment Facil ity Oct 27, 2023 10:10 AM [place]-TOBACCO QUIT 15 YRS OR MORE [facility] Tobacco Use History This section includes a history of the smoking, or tobacco-related health factors, that were collected on or before the date of the Encounter. The data comes from the [place] facility where the Encounter took place. Date/Time Smoking Status/Tobacco Use Comment F acility Oct 27, 2023 10:10 AM [place]-TOBACCO QUIT 15 YRS OR MORE [facility] Encounter Notes: All associated encounter notes This section contains the clinical notes associated to the Encounter. Date/Time Encounter Note(s) Provider Source Apr 26, 2024 08:42 AM DENTISTRY NOTE: LOCAL TITLE: DENTAL NOTE STANDARD TITLE: DENTISTRY NOTE DATE OF NOTE: APR 26, 2024@08:42 ENTRY DATE: APR 26, 2024@08:43:03 AUTHOR: BASSAM TORRES COSIGNER: URGENCY: STATUS: COMPLETED Patient presented today for a cleaning. PREMEDICATION: Patient stated they took premed. PAST MEDICAL HISTORY: Reviewed. Patient said he had a knee replacement January 12, 2023. Discussed patient can not have cleaning until 6 months after replacement. I apologized and patient understood. Scheduled for after July 15, 2023. NEXT VISIT: juli /clint/ BASSAM TORRES [facility], DENTAL SERVICE Signed: 04/26/2024 08:45 BASSAM TORRES [place] [facility]
--- OUTSIDE RECORDS SUMMARY | 2025-02-13 11:27 | XMS_ITS | Clinical Summary ---
Author Organization [facility] ity Address [address] [place] [address] Care Team Providers Care Podiatric Medicine Doctor Name Role Phone Unavailable Primary Care Provider Unavailabl e Social History Tobacco Use Types Packs/Day Years Used Date Smoking Tobacco: Never Assessed Sex and Gender Information Value Date Recorded Sex Assigned at Not on file Legal Sex Male 2:23 PM EST Gender Identity Not on file Sexual Orientation Not on file Plan of Treatment Health Maintenance Due Date Last Done Comments DTaP,Tdap,and Td Vaccines (1 - Tdap) 1975 Pneumococcal Vaccine: 50+ Ye ars (1 of 1 - PCV) 2006 Zoster Vaccines (1 of 2) 2006 COVID-19 Vaccine ( - 2023-2 5 season) 2024 Influenza Vaccine (Season Ended) 2025 RSV Immunization Adult Patie nts (1 - 1-dose 75+ series) 2031 HIB Vaccines Aged Out No longer eligi ble based on patient's age to complete this topic HPV Vaccines Aged Out No longer eligi ble based on patient's age to complete this topic Hepatitis A Vaccines Aged Out No long er eligible based on patient's age to complete this topic Hepatitis B Vaccines Aged Out No long er eligible based on patient's age to complete this topic IPV Vaccines Aged Out No longer eligi ble based on patient's age to complete this topic MMR Vaccines Aged Out No longer eligi ble based on patient's age to complete this topic Meningococcal ACWY Vaccine Aged Out N o longer eligible based on patient's age to complete this topic Meningococcal B Vaccine Aged Out No l onger eligible based on patient's age to complete this topic RSV Immunization Patients Un gavino 20 months Aged Out No longer eligible b ased on patient's age to complete this topic Varicella Vaccines Aged Out No longer eligible based on patient's age to complete this topic
--- OUTSIDE RECORDS SUMMARY | 2025-02-13 11:27 | XMS_ITS | Encounter Summary ---
Author Name [facility] [place] [facility] [facility] [place] Address [address] [place] [address] Care Team Providers Care Sheriff'S Detective Name Role Phone FERMIN MEJIA Primary Care [...] Mendiola's Name Patient's Relationship to Policy [facility]) MEDICARE ADVANTAGE [facility] ([facility]) Jul 31, 2017 [id number] [id number] STEVEN ALEXANDRE JR S PATIENT MEDICARE (WN) MEDICARE (M) PART A Mar 31, 2012 PART A [id number] STEVEN ALEXANDRE JR S PATIENT MEDICARE (WN) MEDICARE (M) PART B Mar 31, 2012 PART B [id number] STEVEN ALEXANDRE JR S PATIENT MEDICARE (WN) MEDICARE (M) PART A Mar 31, 2012 PART A [id number] STEVEN ALEXANDRE JR S PATIENT MEDICARE ([facility]) MEDICARE (M) PART B Mar 31, 2012 PART B [id number] STEVEN ALEXANDRE JR PATIENT MEDICARE (WNR) MEDICARE (M) PART A Mar 31, 2012 PART A [id number] [phone] STEVEN ALEXANDRE JR S PATIENT MEDICARE (WNR) MEDICARE (M) PART B Mar 31, 2012 PART B [id number] [phone] STEVEN ALEXANDRE JR S PATIENT MEDICARE (WNR) MEDICARE (M) PART A Mar 31, 2012 PART A [id number] [phone] TSEVEN ALEXANDRE JR S PATIENT MEDICARE (WNR) MEDICARE (M) PART B Mar 31, 2012 PART B [id number] [phone] STEVEN ALEXANDRE JR S PATIENT MEDICARE (WNR) MEDICARE (M) PART A Mar 31, 2012 PART A [id number] [phone] STEVEN ALEXANDRE JR S PATIENT MEDICARE (WNR) MEDICARE (M) PART B Mar 31, 2012 PART B [id number] STEVEN ALEXANDRE JR PATIENT MEDICARE PART D (WNR) PRESCRIPT ION PART D May 31, 2012 PART D [id number] [phone] STEVEN ALEXANDRE JR PATIENT MEDICARE PART D (WNR) PRESCRIPT ION PART D May 31, 2012 PART D [id number] [phone] STEVEN ALEXANDRE JR PATIENT Selected Encounter This section includes the information on record at [place] for the Encounter. Date/Time Encounter Type Encounter Description Reason Provider Source Sep 12, 2024 10:00 AM OFFICE O/P NEW MOD 45 MIN STUFFED CASING TIER ICD-10-CM M54.2 CervicalMERVIN Menon [facility] Encounter Template Text not used by [facility] Assessments - Encounter Diagnoses This section includes the primary and secondary diagnoses documented for the Encounter. Date/Time Primary/Secondary Diagnosis Diagnosis Name Provider Source Sep 12, 2024 03:58 PM PRIMARY CervicalMERVIN Menon [facility] Plan of Treatment: Future Appointments (+ 6 months) and Future Tests (+/- 45 days) The Plan of Treatment section includes future care activities for the patient from all [facility] treatmentfacilities. This section includes future appointments and future orders which are active, pending or scheduled. Future Appointments This section includes appointments that were scheduled to occur 6 months from the date of the Encounter, up to a maximum of 20 appointments. The data comes from all [place] treatment facilities. Appointment Date/Time Appointment Type Appointme nt Facility Name Sep 13, 2024 07:30 AM AMBULATORY - REHAB [facility]IC[facility] Sep 19, 2024 09:00 AM [facility] [place] [facility] Sep 21, 2024 07:30 AM AMBULATORY - REHAB MEDICIN [facility] Sep 21, 2024 09:30 AM [facility] [place] [facility] Sep 24, 2024 02:00 PM AMBULATORY [facility] [place] [facility] Sep 25, 2024 01:00 PM [facility]UL[facility] [place] [facility] Sep 25, 2024 01:30 PM [facility]UL[facility] [place] [facility] Sep 25, 2024 02:00 PM [facility]UL[facility] [place] [facility] Sep 26, 2024 08:30 AM AM[facility]ULATORY - MEDICINE [facility] Oct 03, 2024 09:30 AM AM[facility]UL[facility] [place] [facility] Oct 09, 2024 07:30 AM AMBULATORY - REHAB MEDICIN [facility] Oct 10, 2024 09:30 AM [facility] [place] [facility] Oct 16, 2024 08:30 AM [facility] [place] [facility] Oct 22, 2024 02:00 PM AMBULATORY - REHAB [facility]IC[facility] Oct 25, 2024 09:00 AM AM[facility] [place] [facility] Nov 15, 2024 09:15 AM AM[facility]UL[facility] [place] [facility] Nov 29, 2024 08:45 AM AM[facility]UL[facility]ORY [facility] [place] [facility] Dec 10, 2024 02:30 PM [facility]ULATORY [facility] Dec 27, 2024 08:45 AM AM[facility]UL[facility]ORY [facility] [place] [facility] Dec 31, 2024 02:00 PM AMBULATORY - PSYCHIATRY [facility] Active, Pending, and Scheduled Orders This section includes a listing of several types of active, pending, and scheduled orders, including clinic medications orders, diagnostic test orders, procedure orders and consult orders; where the start date of the order is 45 days before the date of the Encounter or 45 days after the date of theEncounter. The data comes from all [facility] facilities. Test Date/Time Test Type Test Details Facility Name Aug 17, 2024 12:00 AM Laboratory - Chemi stry Order MICROALBUMIN CREATININE RATIO PANEL URINE (RANDOM) [facility] Aug 17, 2024 12:00 AM Laboratory - Chemi stry Order VITAMIN D (25-OH) BLOOD (SST-SERUM) [facility] Aug 17, 2024 12:00 AM Laboratory - Chemi stry Order PSA BLOOD (SST-SERUM) [facility] Aug 17, 2024 12:00 AM Laboratory - Chemi stry Order CBC AND DIFF (AUTO) BLOOD (LAV-BLOOD) [facility] Aug 17, 2024 12:00 AM Laboratory - Chemi stry Order TSH BLOOD (SST-SERUM) [facility] Aug 17, 2024 12:00 AM Laboratory - Chemi stry Order HEMOGLOBIN A1C PANEL BLOOD (LAV-BLOOD) [facility] Aug 17, 2024 12:00 AM Laboratory - Chemi stry Order LIPID PANEL FASTING BLOOD (SST-SERUM) [facility] Aug 17, 2024 12:00 AM Laboratory - Chemi stry Order MAGNESIUM BLOOD (SST-SERUM) [facility] Aug 17, 2024 12:00 AM Laboratory - Chemi stry Order PT & INR (COUMADIN) BLOOD (BLUE-PLASMA) [facility] Aug 17, 2024 12:00 AM Laboratory - Chemi stry Order LIVER FUNCTION BLOOD (SST-SERUM) [facility] Aug 17, 2024 12:00 AM Laboratory - Chemi stry Order BASIC METABOLIC PANEL (fasting) BLOOD (SST-SERUM) [facility] Aug 17, 2024 12:00 AM Laboratory - Chemi stry Order VITAMIN B12 BLOOD (SST-SERUM) [facility] Aug 17, 2024 12:00 AM Laboratory - Chemi stry Order CALCIUM BLOOD (SST-SERUM) [facility] Social History: Smoking Status (Most current) and Tobacco Use (All prior to encounter date) This section includes the most current, and the historical, smoking and tobacco- related health factors from the [facility] facility where the Encounter took place. Current Smoking Status This section includes the most current smoking, or tobacco-related health factor, from the [facility] facility where the Encounter took place. Date/Time Current Smoking Status Comment Facil ity Oct 27, 2023 10:10 AM [facility]-TOBACCO FORMER USER [facility] Tobacco Use History This section includes a history of the smoking, or tobacco-related health factors, that were collected on or before the date of the Encounter. The data comes from the [facility] facility where the Encounter took place. Date/Time Smoking Status/Tobacco Use Comment F acility Oct 27, 2023 10:10 AM [facility]-TOBACCO QUIT 15 YRS OR MORE [facility] Encounter Notes: All associated encounter notes This section contains the clinical notes associated to the Encounter. Date/Time Encounter Note(s) Provider Source Sep 12, 2024 01:01 PM CHIROPRACTIC CONSU LT: [facility] TITLE: CONSULT REPORT/CHIROPRACTOR STANDARD TITLE: CHIROPRACTIC CONSULT DATE OF NOTE: SEP 12, 2024@13:01 ENTRY DATE: SEP 12, 2024@13:01:30 AUTHOR: MERVIN FLOR EXP COSIGNER: URGENCY: STATUS: COMPLETED CLAUDIA ALEXANDRE JR is a 69 BLACK OR MALE with prior history of COMBAT SERVICE INDICATED: No POS: PERIOD OF SERVICE - OTHER OR NONE SERVICE BR[employer]CH: [employer] 13 years Service Connected Disabilities with % Eligibility: Active Problem Chronic combined systolic and diast [...] HOLLAND Diabetes mellitus E11.9 10/30/2015 IZABELA HOLLAND Past Surgeries: Left knee arthroplasty January 13, 2024 [facility] with C/C of a little neck pain with N/T down R arm into fingers 3, 4, 5 He denies weakness He/she describes the pain as intermittent Vet rates the pain average on the NPRS 4/10 Onset: last year after he fell in [employer] parking lot. He pulled a shopping care that was caught . He fell and landed on his back and his head hit last. About 3-4 days later he went to [facility]. X-rays taken but not found in [facility] records. He was sent to a specialist . At first the DX was carpal tunnel syndrome SX progressed Something was found in his neck and was offered surgery or Gabapentin. [facility] who offered Chiropractor, Acupuncture Palliative: sometimes at night he wears a wrist support Provocative: he changed his pillow 3 times; he wears a mask for sleep apnea; attimes he has difficulty getting comfortable Timing: worse at end of day; He watches TV; he does a little calisthetics; He avoids cardio because of fatigue and HX cardiac problems. Prior treatment: x-rays taken at [facility]; Gabapentin Prior health care coordinator: None Exercise/Activities: daily he squeezes a ball Vet has not tried Yoga Pertinent Imaging: Reviewed Radiologist's report NOne found Patient denies bowel/bladder dysfunction saddle anesthesia, recent fevers, infections, night sweats, unexplained weight loss, dysphagia, dysarthria, numbness, diploplia GOALS: discussed and not able to obtain EXAM Patient enters clinic FWB without need of assistive device - without signs of acute distress, antalgia, or gait alteration Patient appears to be well nourished, is well groomed, pleasant, cooperative in NAD, gait and station unremarkable. AAOx3, speech is fluent. Goldstein's: Neg bilat Rhombergs no sway Toe walk/Heel walk General exam findings Cursory PE demonstrates no acute or emergent health conditions. No signs of acute pulmonary distress, breathing is steady and non-labored. No distal edema or signs of peripheral circulatory distress. No saddle paresthesia and no acute bowel or bladder dysfunction. Active CERVICAL ROM largely WNL limited and provocative into: Extension, R rotation other motions are non-painful Flexion Lateral Bending L Rotation UE Motor strength graded 5/5 Sensation grossly intact to light touch DTRs 2+ biceps triceps brachioradialis Cervical Orthopedic Tests Compression - Distraction - Shoulder depression + Soft tissue palpation reveals hypertonicity and tenderness bilat C/sp mm into upper trapezii Restrictions cervical, upper thoracic Motion palpation reveals intersegmental lumbar somatic dysfunction with relative joint hypomobility. IMPRESSION: It is reasonable in this case to apply a conservative course of manual therapy to address myofascial and joint findings while encouraging activity and stretching specific to the patient's presentation. PLAN: Treatment #1. I explained all of this to the patient and the patient seemed to understand. Treatment options from least invasive to most with the associated risks, benefits, alternatives, and potential outcomes were discussed in detail. Potential risks associated with spinal manipulative therapy, the following were shared with the patient: Likely (transient mild post-treatment soreness); Less Likely (Bruising, sprain/strain); Rare but potentially serious (disc herniation, fracture); Extremely Rare but serious (epidural spinal hematoma, cauda equina syndrome). Informed consent obtained to provide management consisting of: ~ Lumbar F/D decompression manipulation with the intended goal of the reduction of LBP and limitations related to LBP through the mechanical action of lumbar flexion with a gentle distractive force. ~ MFR as per palpation (10 minutes) ~ Mobilization/SMT to Cervical, Thoracic, and/or Lumbar and S-I regions in lateral decubitus posture ~ Prone or supine thoracic mobilization/SMT ~ Prone hip flexor/quadriceps stretching as per palpation ~ Supine gluteal stretching as per palpation Treatment: active/corrective Manual therapy 8 min cervical prone CMT cervical low force AT Treatment carried out today and well tolerated The prognosis,at this time,is fair to good Short term goals include improvement in excess 25% on regional disability questionnaire and/or NRS over the first 3-4 treatment visits. It was explained to the patient that resolution of soft tissue complaints through conservative management requires compliance with at home recommendations and avoidance of aggravating factors. Self-Care Recommendations: avoid prolonged sitting ~Patient encouraged to engage in activities such as a walking program with established goals to reduce fear-avoidance behaviors with regard to movement,and improve overall health and fitness. emphasis placed upon function over pain with effort made each day to remain active understanding that normal daily activities may temporarily increase pain experience but are not inherently injurious and should be explored to the extent possible. Provided patient with Yoga flyer ~ Activity such as Yoga encouraged to enhance relaxation, flexibility, posture, core stability, balance, and pain modulation. Plan: trial Chiro Visit 1 F/U 4 visits Seek urgent care as needed. CMT: chiropractic manipulative therapy SMT: Spinal Manipulative Therapy F/D: Flexion Distraction MFR: Myofascial Release S-I: Sacroiliac MFTP: Myofascial Trigger Point NRS: Numeric Rating Scale N/T: Numbness/Tingling PIR: Post isometric relaxation /es/ MERVIN FLOR [facility]. CHIROPRACTOR Signed: 09/12/2024 16:05 MERVIN FLOR [facility]
--- OUTSIDE RECORDS SUMMARY | 2025-02-13 11:27 | XMS_ITS | Encounter Summary ---
Author Name [facility] [place] [facility] [place] [facility] [facility] [place] Address [address] [place] [address] Care Team Providers Care Night Coordinator Name Role Phone FERMIN MEJIA Primary Care [...] Patient's Relationship to Policy Mendi[facility] (WN) MEDICARE ADVANTAGE [facility] ([facility]) Jul 31, 2017 [id number] [id number] STEVEN ALEXANDRE JR S PATIENT MEDICARE (WN) MEDICARE (M) PART A Mar 31, 2012 PART A [id number] STEVEN ALEXANDRE JR S PATIENT MEDICARE (WNR) MEDICARE (M) PART B Mar 31, 2012 PART B [id number] STEVEN ALEXANDRE JR S PATIENT MEDICARE (WNR) MEDICARE (M) PART A Mar 31, 2012 PART A [id number] STEVEN ALEXANDRE JR S PATIENT MEDICARE (WN) MEDICARE (M) PART B Mar 31, 2012 PART B [id number] STEVEN ALEXANDRE JR PATIENT MEDICARE (WNR) MEDICARE (M) PART A Mar 31, 2012 PART A [id number] [phone] STEVEN ALEXANDRE JR S PATIENT MEDICARE (WNR) MEDICARE (M) PART B Mar 31, 2012 PART B [id number] [phone] STEVEN ALEXANDRE JR S PATIENT MEDICARE (WNR) MEDICARE (M) PART A Mar 31, 2012 PART A [id number] [phone] STEVEN ALEXANDRE JR S PATIENT MEDICARE (WNR) MEDICARE (M) PART B Mar 31, 2012 PART B [id number] [phone] STEVEN ALEXANDRE JR S PATIENT MEDICARE (WNR) MEDICARE (M) PART A Mar 31, 2012 PART A [id number] STEVEN ALEXANDRE JR PATIENT MEDICARE (WNR) MEDICARE (M) PART B Mar 31, 2012 PART B [id number] STEVEN ALEXANDRE JR PATIENT MEDICARE PART D (WNR) PRESCRIPT ION PART D May 31, 2012 PART D [id number] [phone] STEVEN ALEXANDRE JR PATIENT MEDICARE PART D (WNR) PRESCRIPT ION PART D May 31, 2012 PART D [id number] STEVEN ALEXANDRE JR PATIENT Selected Encounter This section includes the information on record at [place] for the Encounter. Date/Time Encounter Type Encounter Description Reason Provider Source Apr 24, 2024 09:00 AM INTRM OPH EXAM EST PATIENT OPTOMETRY ICD-10-CM H52.4 Presbyopia UMM BEARD E Encounter Template Text not used by [place] Assessments - Encounter Diagnoses This section includes the primary and secondary diagnoses documented for the Encounter. Date/Time Primary/Secondary Diagnosis Diagnosis Name Provider Source Apr 24, 2024 01:10 PM PRIMARY Presbyopia UMM BERAD [place] [facility] [place] [facility] Apr 24, 2024 01:10 PM SECONDARY Combined forms of age-related cataract, bilateral UMM BEARD [place] [facility] [place] [facility] Apr 24, 2024 01:10 PM SECONDARY Other localized visual field defect, bilateral BEARD,UMM J ND [facility] [place] [facility] Plan of Treatment: Future Appointments (+ 6 months) and Future Tests (+/- 45 days) The Plan of Treatment section includes future care activities for the patient from all [place] treatmentst [facility]. This section includes future appointments and future orders which are active, pending or scheduled. Future Appointments This section includes appointments that were scheduled to occur 6 months from the date of the Encounter, up to a maximum of 20 appointments. The data comes from all [place] treatment facilities. Appointment Date/Time Appointment Type Appointme nt Facility Name May 16, 2024 08:30 AM AMBULATORY - MEDICINE [facility] Jul 24, 2024 01:00 PM AMBULATORY - NONE [place] [facility] [place] [facility] Jul 27, 2024 08:00 AM AMBULATORY - REHAB MEDICIN [facility] Aug 02, 2024 09:30 AM AMBULATORY - MEDICINE [place] C [facility] [place] [facility] Aug 02, 2024 02:30 PM AMBULATORY - MEDICINE [facility] Aug 03, 2024 09:00 AM AMBULATORY - REHAB MEDICIN [facility] Aug 06, 2024 10:00 AM AMBULATORY - PSYCHIATRY [facility] Aug 06, 2024 03:30 PM AMBULATORY - REHAB MEDICIN [facility] Aug 10, 2024 10:00 AM AMBULATORY - REHAB MEDICIN [facility] Aug 16, 2024 07:30 AM AMBULATORY - REHAB MEDICIN [facility] Aug 21, 2024 09:30 AM AMBULATORY - REHAB MEDICIN [facility] Aug 23, 2024 07:30 AM AMBULATORY - REHAB MEDICIN [facility] Aug 28, 2024 08:30 AM AMBULATORY - MEDICINE [place] C [facility] [place] [facility] Sep 03, 2024 07:30 AM AMBULATORY - REHAB MEDICIN [facility] Sep 03, 2024 09:00 AM AMBULATORY - PSYCHIATRY [facility] Sep 12, 2024 10:00 AM AMBULATORY - MEDICINE [place] C [facility] [place] [place] [facility] Sep 13, 2024 07:30 AM AMBULATORY - REHAB MEDICIN [facility] Sep 19, 2024 09:00 AM AMBULATORY - MEDICINE [place] C [facility] [place] [facility] Sep 21, 2024 07:30 AM AMBULATORY - REHAB MEDICIN [facility] Sep 21, 2024 09:30 AM AMBULATORY - MEDICINE [facility] [place] [facility] Active, Pending, and Scheduled Orders This section includes a listing of several types of active, pending, and scheduled orders, including clinic medications orders, diagnostic test orders, procedure orders and consult orders; where the start date of the order is 45 days before the date of the Encounter or 45 days after the date of theEncounter. The data comes from all [place] treatment facilities. Test Date/Time Test Type Test Details Facility Name March 26, 2024 12:00 AM Laboratory - Chemi stry Order BASIC METABOLIC PANEL (fasting) BLOOD (SST-SERUM) [facility] March 26, 2024 12:00 AM Laboratory - Chemi stry Order LIVER FUNCTION BLOOD (SST-SERUM) [facility] March 26, 2024 12:00 AM Laboratory - Chemi stry Order LIPID PANEL FASTING BLOOD (SST-SERUM) [facility] March 26, 2024 12:00 AM Laboratory - Chemi stry Order HEMOGLOBIN A1C PANEL BLOOD (LAV-BLOOD) [facility] March 26, 2024 12:00 AM Laboratory - Chemi stry Order VITAMIN D (25-OH) BLOOD (SST-SERUM) [facility] March 26, 2024 12:00 AM Laboratory - Chemi stry Order CBC BLOOD (LAV-BLOOD) [facility] Apr 20, 2024 12:00 AM Laboratory - Chemi stry Order BASIC METABOLIC PANEL (fasting) BLOOD (SST-SERUM) [facility] Apr 20, 2024 12:00 AM Laboratory - Chemi stry Order LIVER FUNCTION BLOOD (SST-SERUM) [facility] Apr 20, 2024 12:00 AM Laboratory - Chemi stry Order LIPID PANEL FASTING BLOOD (SST-SERUM) [facility] Apr 20, 2024 12:00 AM Laboratory - Chemi stry Order HEMOGLOBIN A1C PANEL BLOOD (LAV-BLOOD) [facility] Apr 20, 2024 12:00 AM Laboratory - Chemi stry Order VITAMIN D (25-OH) BLOOD (SST-SERUM) [facility] Apr 20, 2024 12:00 AM Laboratory - Chemi stry Order CBC BLOOD (LAV-BLOOD) [facility] Social History: Smoking Status (Most current) and Tobacco Use (All prior to encounter date) This section includes the most current, and the historical, smoking and tobacco- related health factors from the [place] facility where the Encounter took place. Current Smoking Status This section includes the most current smoking, or tobacco-related health factor, from the [facility] where the Encounter took place. Date/Time Current Smoking Status Comment Facil ity Oct 27, 2023 10:10 AM [place]-TOBACCO QUIT 15 YRS OR MORE [facility] Tobacco Use History This section includes a history of the smoking, or tobacco-related health factors, that were collected on or before the date of the Encounter. The data comes from the [place] facility where the Encounter took place. Date/Time Smoking Status/Tobacco Use Comment F acility Oct 27, 2023 10:10 AM [place]-TOBACCO QUIT 15 YRS OR MORE [facility] Encounter Notes: All associated encounter notes This section contains the clinical notes associated to the Encounter. Date/Time Encounter Note(s) Provider Source Apr 24, 2024 07:42 AM OPTOMETRY NOTE: LOCAL TITLE: OPTOMETRY NOTE STANDARD TITLE: OPTOMETRY NOTE DATE OF NOTE: APR 24, 2024@07:42 ENTRY DATE: APR 24, 2024@07:42:57 AUTHOR: SARAH COCHRAN JR EXP COSIGNER: [facility]MM BEARD URGENCY: STATUS: COMPLETED OPTOMETRY NOTE Has ADDENDA Active problems - Computerized Problem List is the source for the followin. Chronic combined systolic and diastolic heart failure 2. Outside providers 3. Contusion 4. Contusion of right shoulder 5. CHF - Congestive Heart Failure ([facility] [id number]) 6. Anaemia due to blood loss 7. Chronic Kidney Disease Stage 3B ([facility] [id number]) 8. Tubular adenoma 9. Ex-smoker 10. Erectile dysfunction 11. Microscopic hematuria 12. Sleep apnea 13. Lower urinary tract symptoms due to benign prostatic hypertrophy 14. Long-term current use of anticoagulant 15. Gout 16. Onychomycosis of toenails 17. Chronic post-traumatic stress disorder 18. Cardiac pacemaker in situ 19. Asthma 20. Benign hypertension 21. Heart disease 22. Low back pain 23. Diabetes mellitus Active Outpatient Medications (including Supplies): Active Outpatient Medications Status 1) CARBOXYMETHYLCELLULOSE NA 0.5% OPH SOLN INSTILL 1 ACTIVE DROP INTO EACH EYE FOUR TIMES A DAY FOR DRY EYE Active Non-VA Medications Status 1) Non-VA ALLOPURINOL 100MG TAB 100MG BY [...] MOUTH EVERY DAY ACTIVE 16 Total Medications Allergies: PENICILLIN, SPIRONOLACTONE All medications including those prescribed by outside VA's, community providers, and all OTC meds were reviewed and reconciled with patient to the best of their abilities. This 69 year old MALE is seen today for follow-up care. ETELVINA: 07/2023 Chief Complaint: Pt. feels that he is not able to read out of the glasses he received last July. He has been in the hospital 2x this year for heart failure and feels that before that the glasses worked well. Feels that he see's well in the distance. Is noticing blurry vision only at near OU. They increased his dosage of Torsemide and put him on a magnesium and iron supplement. Pt is now being followed more closely by specialists for this issue. Denies any other visual changes or complaints since last visit. Diabetic X 20 years Last A1C: 6.4% Last BS: 119 yesterday AM FHx of glaucoma: (+) Mother OHx: - Low risk open angle glaucoma suspect OU - Type 2 DM without retinopathy or DME OU - Superior quadrantanopsia - Hx of encephalomalacia left middle ocipital lobe - Combined cataracts OU - Dry eyes OU - ERM OS - Hyperopia with regular astigmatism and presbyopia OU Ocular Medications: (-) Pain: (-) HART: (-) Diplopia: (-) Flashes: (-) Floaters: (-) Amaurosis Fugax/Tia's: (-) Eye Injury: (-) Eye Surgery: (-) TBI FOHx: (-)ARMD/Blindness VITALS (most recent, as listed in the electronic record): B/P: 104/62 (04/23/2024 08:34) Pulse: 60 (04/23/2024 08:34) Temperature: 97.1 F [36.2 C] (04/23/2024 08:34) Weight: 260 lb [117.93 kg] (04/23/2024 08:34) Height: 72 in [182.9 cm] (04/23/2024 08:34) BMI: BMI: 35.3 PERTINENT LABS: HEMOGLOBIN A1C TREND Collection DT Spec HGBA1c 10/11/2023 07:31 BLOOD 6.4 H 06/14/2022 08:43 BLOOD 6.1 H 05/04/2017 09:02 BLOOD comment 02/03/2017 08:02 BLOOD comment 10/29/2016 07:48 BLOOD 8.6 H Current Rx with last BCVA: OD:+0.75-0.15o557 20/20 OS:+0.75-0.27g181 20/20 Add: +2.50 DVA ( )sc ( x )cc - phoropter OD: 2020-1 OS: 20/20 Pupils: PERRL (-)APD EOMs: SAFE OU, (-)Pain/Diplopia CVF (facial, peripheral): Superior temporal restriction OU (OD>OS) Subjective Refraction: OD:+0.75-0.56m851 20/20-1 OS:+0.75-0.27y949 20/ OU: 20/20 Add: +2.50 20/20 Provider repeat refraction: OD: +0.75 SPH 20/15 OS: +0.75-1.48b272 20/20+2 OU: 20/15 Add +2.75 20/20 OU Pt. trial framed with today's Rx and prefer's it to progressives from last visit All the above performed by student, reviewed by attending Anterior segment: Performed by student, repeated by attending Lids: dermatochalasis, mild debris UL, MGD OU Conj: clear OU Cornea: arcus (-)k spindle OU AC: 3x3 OU Iris: flat and clear (-)NVI OU Lens: 2+ NS OU not able to appreciate cortical changes undilated Tonometry: Performed by student, reviewed by attending Not performed today Fundus exam: Not performed today Performed by student, repeated by attending Not performed today Assessment/Plan: 1. Hyperopia OU with astigmatism OS and presbyopia OU - Updated patient Rx today and trial framed in office. Pt. appreciated updates when compared to habitual pair of glasses. - Ordering duplicate frames for 1x yellow tint progressive and 1x clear progressive with the updated prescription - Pt. educated on today's findings - Keep appointment for CEE in 08/28/2024 2. Superior quadrantanopsia OU - Stable today on finger counting evans. Pt. has no reported changes to visual field or complaints at this time - Continue to monitor at CEE 3. Combined form cataracts OU - Stable to extent seen during undilated exam. Pt. educated on need for increased light especially while reading - Continue to monitor at CEE Not addressed today: - Type 2 DM without retinopathy or macular edema OU - Low risk open angle glaucoma suspect OU - Dry eyes OU - Epiretinal membrane OS Return to Clinic for scheduled CEE 08/28/2024 or earlier PRN Patient Education: Diabetes: Patient was educated regarding diabetes [...] the patient's ability to participate in testing. /clint/ SARAH COCHRAN JR OPTOMETRY STUDENT Signed: 04/24/2024 16:10 /clint/ UMM BEARD OD MANAGER INTELLIGENCE Cosigned: 04/25/2024 07:33 04/25/2024 ADDENDUM STATUS: COMPLETED The optometry internet salesperson participated in this exam, I saw this [place] in conjunction with the optometry student. The entrance tests and refraction were performed by the student and reviewed by me. I personally met with the patient, confirmed the hisory, complaints and the student's findings, and performed slit lamp and fundus evaluation as indicated. I reviewed and agree with the stated findings, assessment and plan. I have added/edited the documentation to reflect my exam findings and changes to the assessment and plan. Ed re today's findings. repeated back the plan and education. All reminders completed by attending and documented in student note. /clint/ UMM BEARD OD MANAGER INTELLIGENCE Signed: 04/25/2024 07:33 SARAH COCHRAN JR ND [facility]
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
--- OUTSIDE RECORDS SUMMARY | 2025-02-13 11:27 | XMS_ITS | Encounter Summary ---
Author Name [facility] [place] Address [address] [place] [address] Care Team Providers Care Billboard Erector Helper Name Role Phone FERMIN MEJIA Primary Care [...] Name Patient's Relationship to Policy Mendiola [facility] ([facility]) MEDICARE ADVANTAGE [facility] ([facility]) Jul 31, 2017 [id number] STEVEN ALEXANDRE JR S PATIENT MEDICARE ([facility]) MEDICARE (M) PART A Mar 31, 2012 PART A [id number] STEVEN ALEXANDRE JR S PATIENT MEDICARE (WNR) MEDICARE (M) PART B Mar 31, 2012 PART B [id number] BALDOMERO HORNESTEVEN S PATIENT MEDICARE (WNR) MEDICARE (M) PART A Mar 31, 2012 PART A [id number] STEVEN ALEXANDRE JR S PATIENT MEDICARE ([facility]) MEDICARE (M) PART B Mar 31, 2012 PART B [id number] STEVEN ALEXANDRE JR PATIENT MEDICARE (WNR) MEDICARE (M) PART A Mar 31, 2012 PART A [id number] [phone] STEVEN ALEXANDRE JR S PATIENT MEDICARE (WNR) MEDICARE (M) PART B Mar 31, 2012 PART B [id number] [phone] STEVEN ALEXANDRE JR S PATIENT MEDICARE (WNR) MEDICARE (M) PART A Mar 31, 2012 PART A [id number] STEVEN ALEXANDRE JR S PATIENT MEDICARE (WNR) MEDICARE (M) PART B Mar 31, 2012 PART B [id number] STEVEN ALEXANDRE JR S PATIENT MEDICARE (WNR) MEDICARE (M) PART A Mar 31, 2012 PART A [id number] STEEVN ALEXANDRE JR PATIENT MEDICARE (WNR) MEDICARE (M) PART B Mar 31, 2012 PART B [id number] STEVEN ALEXANDRE JR PATIENT MEDICARE PART D (WNR) PRESCRIPT ION PART D May 31, 2012 PART D [id number] [phone] STEVEN ALEXANDRE JR PATIENT MEDICARE PART D (WNR) PRESCRIPT ION PART D May 31, 2012 PART D [id number] STEVEN ALEXANDRE JR PATIENT Selected Encounter This section includes the information on record at [place] for the Encounter. Date/Time Encounter Type Encounter Description Reason Provider Source Sep 26, 2024 08:30 AM OFFICE O/P EST LOW 20 MIN PODIATRY ICD-10-CM L60.0 In[place] CLAUDIA Mckniney Leonardo Encounter Template Text not used by [place] Assessments - Encounter Diagnoses This section includes the primary and secondary diagnoses documented for the Encounter. Date/Time Primary/Secondary Diagnosis Diagnosis Name Provider Source Sep 26, 2024 08:54 AM PRIMARY Ingrowing CLAUDIA Mckinney Sep 26, 2024 08:54 AM SECONDARY Type 2 diabetes w diabetic peripheral angiopath w/o gangrene CLAUDIA RASHEED Plan of Treatment: Future Appointments (+ 6 months) and Future Tests (+/- 45 days) The Plan of Treatment section includes future care activities for the patient [facility] This section includes future appointments and future orders which are active, pending or scheduled. Future Appointments This section includes appointments that were scheduled to occur 6 months from the date of the Encounter, up to a maximum of 20 appointments. The data comes from all [facility]. Appointment Date/Time Appointment Type Appointme nt Facility Name Oct 03, 2024 09:30 AM AMBULATORY - MEDICINE [place] [facility] [place] [facility] Oct 09, 2024 07:30 AM AMBULATORY - REHAB MEDICIN [facility] Oct 10, 2024 09:30 AM AMBULATORY - MEDICINE [place] [facility] [place] [facility] Oct 16, 2024 08:30 AM AMBULATORY - MEDICINE [facility] [place] [facility] Oct 22, 2024 02:00 PM AMBULATORY - REHAB [facility] Oct 25, 2024 09:00 AM AMBULATORY - MEDICINE [facility] [place] [facility] Nov 15, 2024 09:15 AM AMBULATORY - MEDICINE [place] [facility] [place] [facility] Nov 29, 2024 08:45 AM AMBULATORY - MEDICINE [facility] [place] [facility] Dec 10, 2024 02:30 PM AMBULATORY - MEDICINE [facility] Dec 27, 2024 08:45 AM AMBULATORY - MEDICINE [place] [facility] [place] [facility] Dec 31, 2024 02:00 PM AMBULATORY - PSYCHIATRY [facility] Jan 10, 2025 03:00 PM AMBULATORY - MEDICINE [place] [facility] [place] [facility] Jan 16, 2025 11:30 AM AMBULATORY - PSYCHIATRY [facility] Jan 22, 2025 11:00 AM AMBULATORY - MEDICINE [facility] [place] [facility] Jan 23, 2025 08:30 AM AMBULATORY - NONE [facility] [place] [facility] Jan 23, 2025 09:00 AM AMBULATORY - NONE [facility] [place] [facility] Jan 31, 2025 08:30 AM AMBULATORY - MEDICINE [facility] Feb 06, 2025 10:30 AM AMBULATORY - MEDICINE [facility] [place] [facility] Feb 12, 2025 08:00 AM AMBULATORY - PSYCHIATRY [facility] March 07, 2025 08:00 AM AMBULATORY - PSYCHIATRY [facility] Active, Pending, and Scheduled Orders This section includes a listing of several types of active, pending, and scheduled orders, including clinic medications orders, diagnostic test orders, procedure orders and consult orders; where the start date of the order is 45 days before the date of the Encounter or 45 days after the date of theEncounter. The data comes from all [facility] facilities. Test Date/Time Test Type Test Details Facility Name Aug 17, 2024 12:00 AM Laboratory - Chemi stry Order MICROALBUMIN CREATININE RATIO PANEL URINE (RANDOM) [facility] Aug 17, 2024 12:00 AM Laboratory - Chemi stry Order PSA BLOOD (SST-SERUM) [facility] Aug 17, 2024 12:00 AM Laboratory - Chemi stry Order VITAMIN D (25-OH) BLOOD (SST-SERUM) [facility] Aug 17, 2024 12:00 AM Laboratory - Chemi stry Order TSH BLOOD (SST-SERUM) [facility] Aug 17, 2024 12:00 AM Laboratory - Chemi stry Order PT & INR (COUMADIN) BLOOD (BLUE-PLASMA) [facility] Aug 17, 2024 12:00 AM Laboratory - Chemi stry Order CBC AND DIFF (AUTO) BLOOD (LAV-BLOOD) [facility] Aug 17, 2024 12:00 AM Laboratory - Chemi stry Order HEMOGLOBIN A1C PANEL BLOOD (LAV-BLOOD) [facility] Aug 17, 2024 12:00 AM Laboratory - Chemi stry Order MAGNESIUM BLOOD (SST-SERUM) [facility] Aug 17, 2024 12:00 AM Laboratory - Chemi stry Order LIPID PANEL FASTING BLOOD (SST-SERUM) [facility] Aug 17, 2024 12:00 AM Laboratory - Chemi stry Order LIVER FUNCTION BLOOD (SST-SERUM) [facility] Aug 17, 2024 12:00 AM Laboratory - Chemi stry Order BASIC METABOLIC PANEL (fasting) BLOOD (SST-SERUM) [facility] Aug 17, 2024 12:00 AM Laboratory - Chemi stry Order VITAMIN B12 BLOOD (SST-SERUM) [facility] Aug 17, 2024 12:00 AM Laboratory - Chemi stry Order CALCIUM BLOOD (SST-SERUM) [facility] Social History: Smoking Status (Most current) and Tobacco Use (All prior to encounter date) This section includes the most current, and the historical, smoking and tobacco- related health factors from the [place] facility where the Encounter took place. Current Smoking Status This section includes the most current smoking, or tobacco-related health factor, from the [place] facility where the Encounter took place. Date/Time Current Smoking Status Comment Facil ity Jun 18, 2022 09:00 AM VA-TOBACCO QUIT 15 YRS OR MORE [place] Tobacco Use History This section includes a history of the smoking, or tobacco-related health factors, that were collected on or before the date of the Encounter. The data comes from the [place] facility where the Encounter took place. Date/Time Smoking Status/Tobacco Use Comment F acility Jun 18, 2022 09:00 AM VA-TOBACCO QUIT 15 YRS OR MORE [place] March 20, 2021 02:00 PM VA-TOBACCO FORMER USER [place] March 20, 2021 02:00 PM VA-TOBACCO QUIT 15 YRS OR MORE [place] May 25, 2018 08:15 AM VA-TOBACCO FORMER USER [place] May 25, 2018 08:15 AM VA-TOBACCO QUIT 15 YRS OR MORE [place] May 10, 2018 04:32 PM CURRENT SMOKER [facility] Oct 28, 2016 12:56 PM QUIT TOBACCO USE > 7 YEARS AGO stopped smoking 20 years ago [place] Oct 30, 2015 12:58 PM QUIT TOBACCO USE > 7 YEARS AGO [place] Encounter Notes: All associated encounter notes This section contains the clinical notes associated to the Encounter. Date/Time Encounter Note(s) Provider Source Sep 26, 2024 07:20 AM PODIATRY NOTE: LOCAL TITLE: PODIATRY NOTE STANDARD TITLE: PODIATRY NOTE DATE OF NOTE: SEP 26, 2024@07:20 ENTRY DATE: SEP 26, 2024@07:20:29 AUTHOR: CLAUDIA RASHEED EXP COSIGNER: URGENCY: STATUS: COMPLETED RECEIVED BOTH COVID DOSES FROM [facility] AND PROVIDED HIS CARD FOR COPYING AT [facility]-RECEIVED 4 BOOSTERS LAST SEEN FOR TREATMENT: 05/16/2024 S: Pt. is a 69 yo alert [...] LIST NEEDED. A1c = 6.4 (LAST TAKEN: 09/2023-[facility]?) WXR=[id number] RISK=2 HEIGHT: 61 in [154.9 cm] (03/02/2016 [...] present physical-medical status. Protective sensation utilizing a [place] lOg monofilament is 10/10 bilateral. ABOVE Exams [...] the underlying medical condition. RTC 24 WEEKS (01/31 @8:30AM)) *NOTE: REVIEWED HOME FOOT CARE FEET ARE IN EXCELLENT CONDITION AND I PROVIDED WRITTEN RECOMMENDATIONS FOR CONTINUED HOME CARE ( FOOT CARE TIPS) *DISCUSSED NEW PROTOCOLS AND CALLED [facility] TODAY FOR RESCHEDULING I DISCUSSED THE FINDINGS & PLAN WITH PATIENT (UNCHANGED SINCE PREVIOUS VISIT) & PATIENT AGREES AND UNDERSTANDS PLAN & RECEIVED NEW MIRROR DISCUSSED A VARIETY OF ISSUES ANAD SOCIAL CONCERNS AND CONGREGATIONAL BELIEFS Medication Reconciliation: PERFORMED TODAY - SEE BELOW. PATIENT HAS REQUESTED A RENEWAL OF HIS RX FOR AMMONIUM LACTATE FOR DRY SKIN Outpatient: Has the patient been taking medications as documented in the EMLR? YES: The patient has been taking medications as documented in the EMLR. Essential Medication List for Review used to complete this medication reconciliation. INCLUDED IN THIS LIST: Alphabetical list of active outpatient prescriptions dispensed from this [place] (local) and dispensed from another [place] or [facility] facility (remote) as well as inpatient orders [...] JLV. Allergies/ADRs (Tool #5) FACILITY ALLERGY/ADR -------- [facility] ACETAMINOPHEN/OXYCODONE [facility] PENICILLIN [facility] [place] PENICILL[facility] [place] [facility] SPIRONOLACTONE [facility] ACETAMINOPHEN/OXYCODONE [place] PR[facility]N [facility] PENICILLIN Med Recon No[place]ary (Tool #1) INCLUDED IN THIS LIST: Alphabetical list of active outpatient prescriptions dispensed from this [place] (local) and dispensed from another VA or [...] the patient into personal health records (i.e. [employer]) are NOT included in this list. Non-VA medications documented outside this [place], remote inpatient orders (regardless of status) and [...] AT BEDTIME Medication prescribed by Non-VA provider. Non-VA CARVEDILOL 25MG TAB TAKE ONE TABLET BY MOUTH TWICE DAILY Medication prescribed by Non-VA provider. OUTPT CLINDAMYCIN HCL 300MG CAP (Status = ) TAKE TWO CAPSULES BY MOUTH ONE TIME FOR INFECTION CAUSED BY BACTERIA ONE HOUR PRIOR TO DENTAL APPOINTMENT Rx# [id number] Last Released: 07/25/24 Qty/Days Supply: 08/04 Rx Expiration Date: 08/23/24 Refills Remainin Indication: FOR INFECTION CAUSED BY BACTERIA OUTPT CYANOCOBALAMIN 500MCG TAB (Status = Active) TAKE ONE TABLET BY MOUTH ONCE DAILY FOR PREVENTION OF VITAMIN B12 DEFICIENCY Rx# [id number] Last Released: 08/04/24 Qty/Days Supply: 100/ Rx [...] DAILY Medication prescribed by Non-VA provider. OUTPT LIDOCAINE 5% PATCH (Status = Pending) APPLY 1 PATCH TOPICALLY ONCE DAILY NEEDED (LEAVE PATCH ON FOR 12 HOURS, THEN REMOVE PATCH) case picker at [facility] Login Date: 09/25/24 Qty/Days Supply: Refills Ordered: 0 Non-VA MULTIVITAMIN/MINERALS CAP/TAB TAKE ONE TABLET BY [...] EVERY DAY SUPPLIES /clint/ CLAUDIA RASHEED DPM CONTROL SYSTEM COMPUTER SCIENTIST Signed: 09/26/2024 08:55 CLAUDIA RASHEED [place]
--- OUTSIDE RECORDS SUMMARY | 2025-02-13 11:27 | XMS_ITS ---
Author Name [facility] [place] Address [address] [place] [address] Care Team Providers Care Physical Aerodynamicist Name Role Phone FERMIN MEJIA Primary Care [...] Mendiola's Name Patient's Relationship to Policy [facility] MEDICARE ADVANTAGE [facility] ([facility]) Jul 31, 2017 [id number] [id number] STEVEN ALEXANDRE JR S PATIENT MEDICARE (WN) MEDICARE (M) PART A Mar 31, 2012 PART A [id number] STEVEN ALEXANDRE JR S PATIENT MEDICARE (WNR) MEDICARE (M) PART B Mar 31, 2012 PART B [id number] STEVEN ALEXANDRE JR S PATIENT MEDICARE (WNR) MEDICARE (M) PART A Mar 31, 2012 PART A [id number] STEVEN ALEXANDRE JR S PATIENT MEDICARE (WN) MEDICARE (M) PART B Mar 31, 2012 PART B [id number] STEVEN ALEXANDRE JR PATIENT MEDICARE (WNR) MEDICARE (M) PART A Mar 31, 2012 PART A [id number] STEVEN ALEXANDRE JR S PATIENT MEDICARE (WNR) MEDICARE (M) PART B Mar 31, 2012 PART B [id number] [phone] STEVEN ALEXANDRE JR S PATIENT MEDICARE (WNR) MEDICARE (M) PART A Mar 31, 2012 PART A [id number] [phone] STEVEN ALEXANDRE JR S PATIENT MEDICARE (WNR) MEDICARE (M) PART B Mar 31, 2012 PART B [id number] [phone] STEVEN ALEXANDRE JR S PATIENT MEDICARE (WNR) MEDICARE (M) PART A Mar 31, 2012 PART A [id number] STEVEN ALEXANDRE JR PATIENT MEDICARE (WNR) MEDICARE (M) PART B Mar 31, 2012 PART B [id number] STEVEN ALEXANDRE JR PATIENT MEDICARE PART D (WNR) PRESCRIPT ION PART D May 31, 2012 PART D [id number] [phone] STEVEN ALEXANDRE JR PATIENT MEDICARE PART D (WNR) PRESCRIPT ION PART D May 31, 2012 PART D [id number] STEVEN ALEXANDRE JR PATIENT Selected Encounter This section includes the information on record at [place] for the Encounter. Date/Time Encounter Type Encounter Description Reason Provider Source Oct 16, 2024 08:30 AM MANUAL THERAPY 1/> [facility] IRRIGATION ENGINEER ICD-10-CM M54.2 CervicalMERVIN Menon [facility] Encounter Template Text not used by [place] Assessments - Encounter Diagnoses This section includes the primary and secondary diagnoses documented for the Encounter. Date/Time Primary/Secondary Diagnosis Diagnosis Name Provider Source Oct 16, 2024 08:55 AM PRIMARY MERVIN Velasquez [place] [facility] [place] [facility] Plan of Treatment: Future Appointments (+ 6 months) and Future Tests (+/- 45 days) The Plan of Treatment section includes future care activities for the patient from all [place] treatmentfacilities. This section includes future appointments and future orders which are active, pending or scheduled. Future Appointments This section includes appointments that were scheduled to occur 6 months from the date of the Encounter, up to a maximum of 20 appointments. The data comes from all [place] treatment [facility]. Appointment Date/Time Appointment Type Appointme nt Facility Name Oct 22, 2024 02:00 PM AMBULATORY - REHAB MEDICIN [facility] Oct 25, 2024 09:00 AM AMBULATORY [place]ICINE [place] [facility] [place] [facility] Nov 15, 2024 09:15 AM AMBULATORY - MEDICINE [place] [facility] [place] [facility] Nov 29, 2024 08:45 AM AMBULATORY - MEDICINE [place] [facility] [place] [facility] Dec 10, 2024 02:30 PM AMBULATORY - MEDICINE [facility] Dec 27, 2024 08:45 AM AMBULATORY - MEDICINE [place] [facility] [place] [facility] Dec 31, 2024 02:00 PM AMBULATORY - PSYCHIATRY [facility] Jan 10, 2025 03:00 PM AMBULATORY - MEDICINE [place] [facility] [facility] Jan 16, 2025 11:30 AM AMBULATORY - PSYCHIATRY [facility] Jan 22, 2025 11:00 AM AMBULATORY - MEDICINE [place] [facility] [place] [facility] Jan 23, 2025 08:30 AM AMBULATORY - NONE [place] [facility] [place] [facility] Jan 23, 2025 09:00 AM AMBULATORY - NONE [place] [facility] [place] [facility] Jan 31, 2025 08:30 AM AMBULATORY - MEDICINE [facility] Feb 06, 2025 10:30 AM AMBULATORY - MEDICINE [place] [facility] [place] [facility] Feb 12, 2025 08:00 AM AMBULATORY - PSYCHIATRY [facility] March 07, 2025 08:00 AM AMBULATORY - [facility]CHIATRY [facility] March 12, 2025 10:00 AM AMBULATORY - MEDICINE [facility] [place] [facility] Social History: Smoking Status (Most current) and Tobacco Use (All prior to encounter date) This section includes the most current, and the historical, smoking and tobacco- related health factors from the [place] facility where the Encounter took place. Current Smoking Status This section includes the most current smoking, or tobacco-related health factor, from the [place] facility where the Encounter took place. Date/Time Current Smoking Status Comment Facil [place] Oct 27, 2023 10:10 AM [place]-TOBACCO FORMER USER [facility] Tobacco Use History This section includes a history of the smoking, or tobacco-related health factors, that were collected on or before the date of the Encounter. The data comes from the [place] facility where the Encounter took place. Date/Time Smoking Status/Tobacco Use Comment F acility Oct 27, 2023 10:10 AM [place]-TOBACCO QUIT 15 YRS OR MORE [facility] Encounter Notes: All associated encounter notes This section contains the clinical notes associated to the Encounter. Date/Time Encounter Note(s) Provider Source Oct 16, 2024 08:29 AM CHIROPRACTIC NOTE: LOCAL TITLE: CHIROPRACTOR PROGRESS NOTE STANDARD TITLE: CHIROPRACTIC NOTE DATE OF NOTE: OCT 16, 2024@08:29 ENTRY DATE: OCT 16, 2024@08:29:32 AUTHOR: MERVIN FLOR COSIGNER: URGENCY: STATUS: COMPLETED BALDOMEROCLAUDIA HORNE is a 69 BLACK OR MALE with [...] FLORES LOCKWOOD Onychomycosis of toenails B35.1 05/25/2018 WILICLAUDIA Chronic post-traumatic stress disor 07/11/2017 NORBERTOKB Cardiac pacemaker in situ R69. 11/08/2016 FLORES LOCKWOOD Asthma J45.998 10/30/2015 IZABELA HOLLAND Benign hypertension I10. 10/30/2015 IZABELA HOLLAND Heart disease I51.9 10/30/2015 IZABELA HOLLAND Low back pain M54.5 10/30/2015 IZABELA HOLLAND Diabetes mellitus E11.9 10/30/2015 IZABELA HOLLAND Past Surgeries: Left knee arthroplasty January 13, 2024 [place] [facility] [place] [facility] and reports that he is improved. His neck feels better. He still has soreness in neck but less. Patient states that the N/T and weakness inhis hand persists. Patient reports that he was diagnosed with Gout. ------ Fingers 3, 4, and 5 are numb.The R arm is not painful Patient denies pain in his neck but it still feels sore in places. He sent a message to his PCP He did not use ice or heat, but he did some light stretching. ======== Patient is in PT [facility] for a knee problem. He describes the pain as intermittent Vet rates the pain average on the NPRS 4/10 Onset: last year after he fell in [employer] parking lot. He pulled a shopping care that was caught . He fell and landed on his back and his head hit last. About 3-4 days later he [facility]. He was sent to a specialist . At first the DX was carpal tunnel syndrome SX progressed Something was found in his neck and was offered surgery or Gabapentin. His [place] PCP who offered Chiropractor, Acupuncture Palliative: sometimes at night he wears a wrist support Provocative: he changed his pillow 3 times; he wears a mask for sleep apnea; attimes he has difficulty getting comfortable Timing: worse at end of day; He watches TV; he does a little calisthetics; He avoids cardio because of fatigue and HX cardiac problems. Prior treatment: x-rays taken at [facility]; Gabapentin Prior ocular care technician: None Exercise/Activities: daily he squeezes a ball [...] ~ Supine gluteal stretching as per palpation Objectives 10/03/24: Tenderness over ulnar aspect of left wrist mostly on dorsal aspect. ROMS all R wrist motions are painful No visible swelling or discoloration Tinels test neg Unable to performe Phalen's and Prayer test due to pain Ulnar n tension tests neg Not able to find report of wrist X-rays in [facility]. Brought CD that patient provided to Radiology. Brought paper records from Non[place] hospital to records Dept. Hypertonic tender Cervical paraspinal mm CMT AT cervical mobilization R hand/wrist Objectives 10/16/24 Hypertonic tender Cervical paraspinal mm CMT AT cervical mobilization R hand/wrist Treatment: active/corrective Manual therapy 8 min cervical prone CMT cervical low force AT Manual axial traction seated Treatment carried out today and well tolerated The prognosis,at this time,is fair to good Short term goals include improvement in excess 25% on regional disability questionnaire and/or NRS over the first 3-4 treatment visits. It was explained to the patient that resolution of soft tissue complaints through conservative management requires compliance with at home recommendations and avoidance of aggravating factors. Self-Care Recommendations: perform gentle ROMS in pain free range- Nod head Yes and no. avoid prolonged sitting ~Patient encouraged to engage [...] stability, balance, and pain modulation. Plan: trial Chiro; consider X-rays of hand Visit 5 F/U 4 visits Seek urgent care as needed. CMT: chiropractic manipulative therapy SMT: Spinal Manipulative Therapy F/D: Flexion Distraction MFR: Myofascial Release S-I: Sacroiliac MFTP: Myofascial Trigger Point NRS: Numeric Rating Scale N/T: Numbness/Tingling PIR: Post isometric relaxation /es/ MERVIN FLOR D.C. CHIROPRACTOR Signed: 10/16/2024 08:55 MERVIN FLOR [facility]
--- OUTSIDE RECORDS SUMMARY | 2025-02-13 11:27 | XMS_ITS | Encounter Summary ---
Author Name [facility] [place] Address [address] [place] [address] Care Team Providers Care Web Interface Developer Name Role Phone FERMIN MEJIA Primary Care [...] Mendiola's Name Patient's Relationship to Policy Mendiola [facility] ([facility]) MEDICARE ADVANTAGE [facility] ([facility]) Jul 31, 2017 [id number] [id number] STEVEN ALEXANDRE JR Silvia PATIENT MEDICARE ([facility]) MEDICARE (M) PART A Mar 31, 2012 PART A [id number] STEVEN ALEXANDRE JR Silvia PATIENT MEDICARE ([facility]) MEDICARE () PART B Mar 31, 2012 PART B [id number] BALDOMERO HORNESTEVEN S PATIENT MEDICARE ([facility]) MEDICARE () PART A Mar 31, 2012 PART A [id number] [phone] STEVEN ALEXANDRE JR S PATIENT MEDICARE ([facility]) MEDICARE () PART A Mar 31, 2012 PART A [id number] STEVEN ALEXANDRE JR S PATIENT MEDICARE (WNR) MEDICARE (M) PART B Mar 31, 2012 PART B [id number] STEVEN ALEXANDRE JR S PATIENT MEDICARE (WNR) MEDICARE (M) PART B Mar 31, 2012 PART B [id number] [phone] STEVEN ALEXANDRE JR S PATIENT MEDICARE (WNR) MEDICARE (M) PART A Mar 31, 2012 PART A [id number] STEVEN ALEXANDRE JR S PATIENT MEDICARE (WNR) MEDICARE (M) PART A Mar 31, 2012 PART A [id number] [phone] STEVEN ALEXANDRE JR S PATIENT MEDICARE (WNR) MEDICARE (M) PART B Mar 31, 2012 PART B [id number] STEVEN ALEXANDRE JR S PATIENT MEDICARE (WNR) MEDICARE (M) PART B Mar 31, 2012 PART B [id number] STEVEN ALEXANDRE JR PATIENT MEDICARE PART D (WNR) PRESCRIPT ION PART D May 31, 2012 PART D [id number] [phone] STEVEN ALEXANDRE JR S PATIENT MEDICARE PART D (WNR) PRESCRIPT ION PART D May 31, 2012 PART D [id number] STEVEN ALEXANDRE JR PATIENT Selected Encounter This section includes the information on record at [place] for the Encounter. Date/Time Encounter Type Encounter Description Reason Provider Source Sep 24, 2024 02:00 PM OFFICE O/P EST SF 10 MIN [facility] TREATMENT ICD-10-CM M25.511 Pain in right shoulder CATIAGALINAGENAROSP PUGA M IHE Encounter Template Text not used by [place] Assessments - Encounter Diagnoses This section includes the primary and secondary diagnoses documented for the Encounter. Date/Time Primary/Secondary Diagnosis Diagnosis Name Provider Source Sep 24, 2024 03:59 PM PRIMARY Pain in right shoulder SP RAMON M [place] [facility] [place] [facility] Sep 24, 2024 03:59 PM SECONDARY Cervicalgia SP RAMON PHER [facility] [place] [facility] Sep 24, 2024 03:59 PM SECONDARY Pain in right arm PS RAMON M [place] [facility] [facility] Plan of Treatment: Future Appointments (+ 6 months) and Future Tests (+/- 45 days) The Plan of Treatment section includes future care activities for the patient [facility] [place] [facility] This section includes future appointments and future orders which are active, pending or scheduled. Future Appointments This section includes appointments that were scheduled to occur 6 months from the date of the Encounter, up to a maximum of 20 appointments. The data comes from all [place] treatment facilities. Appointment Date/Time Appointment Type Appointme nt Facility Name Sep 25, 2024 01:00 PM AMBULATORY - MEDICINE [place] [facility] [facility] Sep 25, 2024 01:30 PM AMBULATORY - MEDICINE [place] [facility] [place] [facility] Sep 25, 2024 02:00 PM AMBULATORY - [place]ICINE [place] [facility] [place] [facility] Sep 26, 2024 08:30 AM AMBULATORY - MEDICINE [facility] Oct 03, 2024 09:30 AM AMBULATORY - MEDICINE [place] [facility] [place] [facility] Oct 09, 2024 07:30 AM AMBULATORY - REHAB MEDICIN [facility] Oct 10, 2024 09:30 AM AMBULATORY - [place]ICINE [place] [facility] [place] [facility] Oct 16, 2024 08:30 AM AMBULATORY - [place]ICINE [place] [facility] [place] [facility] Oct 22, 2024 02:00 PM AMBULATORY - REHAB MEDICIN [facility] Oct 25, 2024 09:00 AM AMBULATORY - [place]ICINE [place] [facility] [place] [facility] Nov 15, 2024 09:15 AM AMBULATORY [place]ICINE [place] [facility] [place] [facility] Nov 29, 2024 08:45 AM AMBULATORY - [place]ICINE [place] [facility] [place] [facility] Dec 10, 2024 02:30 PM AMBULATORY - MEDICINE [facility] Dec 27, 2024 08:45 AM AMBULATORY - [place]ICINE [place] [facility] [facility] Dec 31, 2024 02:00 PM AMBULATORY - PSYCHIATRY [facility] Jan 10, 2025 03:00 PM AMBULATORY - [place]ICINE [place] [facility] [place] [facility] Jan 16, 2025 11:30 AM AMBULATORY - PSYCHIATRY [facility] Jan 22, 2025 11:00 AM AMBULATORY - [place]ICINE [place] [facility] [place] [facility] Jan 23, 2025 08:30 AM AMBULATORY - NONE [place] [facility] [place] [facility] Jan 23, 2025 09:00 AM [facility] Active, Pending, and Scheduled Orders [...] Order MICROALBUMIN CREATININE RATIO PANEL URINE (RANDOM) [facility] Aug 17, 2024 12:00 AM Laboratory - Chemi stry Order PSA BLOOD (SST-SERUM) [facility] Aug 17, 2024 12:00 AM Laboratory - Chemi stry Order VITAMIN D (25-OH) BLOOD (SST-SERUM) [facility] Aug 17, 2024 12:00 AM Laboratory - Chemi stry Order PT & INR (COUMADIN) BLOOD (BLUE-PLASMA) [facility] Aug 17, 2024 12:00 AM Laboratory - Chemi stry Order TSH BLOOD (SST-SERUM) [facility] Aug 17, 2024 12:00 AM Laboratory - Chemi stry Order CBC AND DIFF (AUTO) BLOOD (LAV-BLOOD) [facility] Aug 17, 2024 12:00 AM Laboratory - Chemi stry Order HEMOGLOBIN A1C PANEL BLOOD (LAV-BLOOD) [facility] Aug 17, 2024 12:00 AM Laboratory - Chemi stry Order MAGNESIUM BLOOD (SST-SERUM) [facility] Aug 17, 2024 12:00 AM Laboratory - Chemi stry Order LIPID PANEL FASTING BLOOD (SST-SERUM) [facility] Aug 17, 2024 12:00 AM Laboratory - Chemi stry Order BASIC METABOLIC PANEL (fasting) BLOOD (SST-SERUM) [facility] Aug 17, 2024 12:00 AM Laboratory - Chemi stry Order LIVER FUNCTION BLOOD (SST-SERUM) [facility] Aug 17, 2024 12:00 AM Laboratory - Chemi stry Order VITAMIN B12 BLOOD (SST-SERUM) [facility] Aug 17, 2024 12:00 AM Laboratory - Chemi stry Order CALCIUM BLOOD (SST-SERUM) [facility] Social History: Smoking Status (Most [...] ity Oct 27, 2023 10:10 AM [place]-TOBAC[place] QUIT 15 YRS OR MORE [facility] Tobacco Use History This section includes a history of the smoking, or tobacco-related health factors, that were collected on or before the date of the Encounter. The data comes from the [place] facility where the Encounter took place. Date/Time Smoking Status/Tobacco Use Comment F acility Oct 27, 2023 10:10 AM [place]-TOBACCO QUIT 15 YRS OR MORE [facility] Encounter Notes: All associated encounter notes This section contains the clinical notes associated to the Encounter. Date/Time Encounter Note(s) Provider Source Sep 24, 2024 03:49 PM ACUPUNCTURE CONSUL T: LOCAL TITLE: CONSULT REPORT/ACUPUNCTURE STANDARD TITLE: ACUPUNCTURE CONSULT DATE OF NOTE: SEP 24, 2024@15:49 ENTRY DATE: SEP 24, 2024@15:49:57 AUTHOR: RAJAN RAMON EXP COSIGNER: URGENCY: STATUS: [...] HOLLAND Diabetes mellitus E11.9 10/30/2015 IZABELA HOLLAND Date Aug CC / HPI - Requesting Provider: Provisional Diagnosis:Pain in shoulder and neck Right side. Reason for Request: INFORMED CONSENT: Oral Consent obtained on Aug: Acupuncture treatment including risk/side effects, benefits, alternatives to treatment, and the management plan were reviewed with client who expressed understanding and agreed. Subjective CHIEF CONCERN(S):Melanie reports that last December he took a fall while shopping at [employer] falling onto his right side. states he went down hard landing on his right elbow shoulder and hip. has had right arm numbness since that time with no loss of strength. Pala states he has full range of motion with his arm. Pala also has pain in his right hip. states he has a radiating pain from his hips down to his right hernández on the lateral aspect of his leg. In addition Pala states he was told that he had a pinched nerve in the right side of his neck. states he has pain in the neck that radiates from the shoulder to his occiput. _ CLIENT GOALS FOR TREATMENT: Reduce pain and [...] illnesses __ PLAN / RECOMMENDATION: Acupuncture Protocol: [X][place] Acupuncture (BFA), [ ][place], [ ]Auricular Trauma Protocol (ATP) Needle Type: [ ]ASP [X]Standard acupuncture needle [ ]Left Ear [ ]Right Ear [X]Bilateral - Ear swabbed with alcohol prior to needle insertion. Additional Acupuncture: [ ]Head: [ ]Neck: [ ]Torso: [X] LUE: LK, DB, ZB, SI 4 [X] RUE: Krzysztof Leong [X] LLE: LR 4.8, LR 5, SP 6, Pala wearing lidocaine patch medial aspect of lower left leg, unable to access spleen 5.5, LR 4.6, LR 4.2 [X] RLE: GB 40, GB 34 Pala wearing lidocaine patch on right foot unable to access GB 41 and UB 62 Treatment Response: . Post treatment reported feelingRelaxed. Treatment Plan/Follow-up: [ ]Transfer to individual acupuncture [X]Return approximately 2x followed by update to treatment plan [ ]Referred to community Treatment Note(s): [X]Client provided handout on information regarding acupuncture including cautions/contraindicati ons. INSTRUCTIONS: . Attend follow-up appointment . Follow instructions from other providers /clint/ RAJAN RAMON LA.C, DIPL.AC HOSPITALITY DIRECTOR Signed: 09/24/2024 15:59 RAJAN RAMON [facility]
--- OUTSIDE RECORDS SUMMARY | 2025-02-13 11:27 | XMS_ITS | Encounter Summary ---
Author Name [facility] [place] Address [address] [place] [address] Care Team Providers Care Sales Exhibitor Name Role Phone FERMIN MEJIA Primary Care [...] Name Patient's Relationship to Policy Mendiola [facility] MEDICARE ADVANTAGE [facility] ([facility]) Jul 31, 2017 [id number] [id number] STEVEN ALEXANDRE JR S PATIENT MEDICARE ([facility]) MEDICARE (M) PART A Mar 31, 2012 PART A [id number] STEVEN ALEXANDRE JR S PATIENT MEDICARE (WN) MEDICARE (M) PART B Mar 31, 2012 PART B [id number] STEVEN ALEXANDRE JR S PATIENT MEDICARE (WN) MEDICARE (M) PART A Mar 31, 2012 PART A [id number] [phone] STEVEN ALEXANDRE JR S PATIENT MEDICARE ([facility]) MEDICARE (M) PART B Mar 31, 2012 PART B [id number] [phone] STEVEN ALEXANDRE JR PATIENT MEDICARE (WNR) MEDICARE (M) PART A Mar 31, 2012 PART A [id number] [phone] STEVEN ALEXANDRE JR S PATIENT MEDICARE (WNR) MEDICARE (M) PART B Mar 31, 2012 PART B [id number] STEVEN ALEXANDRE JR S PATIENT MEDICARE (WNR) MEDICARE (M) PART A Mar 31, 2012 PART A [id number] [phone] STEVEN ALEXANDRE JR S PATIENT MEDICARE (WNR) MEDICARE (M) PART B Mar 31, 2012 PART B [id number] STEVEN ALEXANDRE JR S PATIENT MEDICARE (WNR) MEDICARE (M) PART A Mar 31, 2012 PART A [id number] STEVEN ALEXANDRE JR S PATIENT MEDICARE (WNR) MEDICARE (M) PART B Mar 31, 2012 PART B [id number] STEVEN LAEXANDRE JR PATIENT MEDICARE PART D (WNR) PRESCRIPT ION PART D May 31, 2012 PART D [id number] [phone] STEVEN ALEXANDRE JR PATIENT MEDICARE PART D (WNR) PRESCRIPT ION PART D May 31, 2012 PART D [id number] STEVEN ALEXANDRE JR PATIENT Selected Encounter This section includes the information on record at [place] for the Encounter. Date/Time Encounter Type Encounter Description Reason Provider Source Oct 03, 2024 09:30 AM OFFICE O/P EST SF 10 MIN TALENT RECRUITER ICD-10-CM M79.641 Pain in right hand MERVIN FLOR [facility] Encounter Template Text not used by [place] Assessments - Encounter Diagnoses This section includes the primary and secondary diagnoses documented for the Encounter. Date/Time Primary/Secondary Diagnosis Diagnosis Name Provider Source Oct 03, 2024 12:58 PM PRIMARY Pain in right [facility] [place] [facility] Oct 03, 2024 12:58 PM SECONDARY Cervicalgia [facility] [place] [facility] Plan of Treatment: Future Appointments (+ 6 months) and Future Tests (+/- 45 days) The Plan of Treatment section includes future care activities for the patient [facility] [place] [facility] This section includes future appointments and future orders which are active, pending or scheduled. Future Appointments This section includes appointments that were scheduled to occur 6 months from the date of the Encounter, up to a maximum of 20 appointments. The data comes from all [facility]. Appointment Date/Time Appointment Type Appointme nt Facility Name Oct 09, 2024 07:30 AM [facility] Oct 10, 2024 09:30 AM AM[facility]UL[facility] MEDICINE [facility] [place] [facility] Oct 16, 2024 08:30 AM AMBULATORY - MEDICINE [facility] [place] [facility] Oct 22, 2024 02:00 PM AMBULATORY - REHAB MEDICIN [facility] Oct 25, 2024 09:00 AM AMBULATORY - MEDICINE [facility] [place] [facility] Nov 15, 2024 09:15 AM AMBULATORY - MEDICINE [facility] [place] [facility] Nov 29, 2024 08:45 AM AMBULATORY - MEDICINE [facility] [place] [facility] Dec 10, 2024 02:30 PM [facility]ULATORY - [facility]ICINE [facility] Dec 27, 2024 08:45 AM AMBULATORY - MEDICINE [facility] [place] [facility] Dec 31, 2024 02:00 PM AMBULATORY - PSYCHIATRY [facility] Jan 10, 2025 03:00 PM AMBULATORY - MEDICINE [facility] [place] [facility] Jan 16, 2025 11:30 AM AMBULATORY - PS[facility]CHIATRY [facility] Jan 22, 2025 11:00 AM AMBULATORY - MEDICINE [facility] [place] [facility] Jan 23, 2025 08:30 AM AMBULATORY - NONE [facility] [place] [facility] Jan 23, 2025 09:00 AM AMBULATORY - NONE [facility] [place] [facility] Jan 31, 2025 08:30 AM [facility]ULATORY - [facility]ICINE [facility] Feb 06, 2025 10:30 AM AMBULATORY - MEDICINE [facility] [place] [facility] Feb 12, 2025 08:00 AM AMBULATORY - PSYCHIATRY [facility] March 07, 2025 08:00 AM AMBULATORY - PSYCHIATRY [facility] March 12, 2025 10:00 AM AMBULATORY - MEDICINE [facility] Social History: Smoking Status (Most current) [...] Facil ity Oct 27, 2023 10:10 AM [place]-TOBACCO QUIT 15 YRS OR MORE [facility] Tobacco Use History This section includes a history of the smoking, or tobacco-related health factors, that were collected on or before the date of the Encounter. The data comes from the [place] facility where the Encounter took place. Date/Time Smoking Status/Tobacco Use Comment F acility Oct 27, 2023 10:10 AM [place]-TOBACCO QUIT 15 YRS OR MORE [facility] Encounter Notes: All associated encounter notes This section contains the clinical notes associated to the Encounter. 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 Fingers 3, 4, and 5 are numb.The [...] Onset: last year after he fell in [place] parking lot. He pulled a shopping care that was caught . He fell and landed on his back and his head hit last. About 3-4 days later he went to [facility]. X-rays taken but not found in [place] records. He was sent to a specialist [...] cardiac problems. Prior treatment: x-rays taken at [facility]; Gabapentin Prior nurse wound care: None Exercise/Activities: daily he squeezes a ball [...] to find report of wrist X-rays in [place] [facility]. Brought CD that patient provided to Radiology. Brought paper records from Non-[place] hospital to records Dept. Hypertonic tender Cervical [...] trial Chiro; consider X-rays of hand Visit 4 F/U 4 visits Seek urgent care as needed. CMT: chiropractic manipulative therapy SMT: Spinal Manipulative Therapy F/D: Flexion Distraction MFR: Myofascial Release S-I: Sacroiliac MFTP: Myofascial Trigger Point NRS: Numeric Rating Scale N/T: Numbness/Tingling PIR: Post isometric relaxation /es/ MERVIN FLOR [facility] CHIROPRACTOR Signed: 10/03/2024 12:58 MERVIN FLOR [facility]
--- OUTSIDE RECORDS SUMMARY | 2025-02-13 11:27 | XMS_ITS | Encounter Summary ---
Author Name [facility] [place] Address [address] [place] [address] Care Team Providers Care Delivery Stock Clerk Name Role Phone FERMIN MEJIA Primary Care [...] Mendiola's Name Patient's Relationship to Policy [facility] MEDIC[facility] ADVANTAGE [facility] ([facility]) Jul 31, 2017 [id number] [id number] STEVEN ALEXANDRE JR S PATIENT MEDICARE ([facility]) MEDICARE () PART A Mar 31, 2012 PART A [id number] STEVEN ALEXANDRE JR S PATIENT MEDICARE ([facility]) MEDICARE () PART B Mar 31, 2012 PART B [id number] STEVEN ALEXANDRE JR S PATIENT MEDICARE ([facility]) MEDICARE () PART A Mar 31, 2012 PART A [id number] STEVEN ALEXANDRE JR S PATIENT MEDICARE ([facility]) MEDICARE () PART B Mar 31, 2012 PART B [id number] STEVEN ALEXANDRE JR PATIENT MEDICARE (WNR) MEDICARE (M) PART A Mar 31, 2012 PART A [id number] [phone] STEVEN ALEXANDRE JR S PATIENT MEDICARE (WNR) MEDICARE (M) PART B Mar 31, 2012 PART B [id number] [phone] STEVEN ALEXANDRE JR S PATIENT MEDICARE (WNR) MEDICARE (M) PART A Mar 31, 2012 PART A [id number] [phone] STEVEN ALEXANDRE JR S PATIENT MEDICARE (WNR) MEDICARE (M) PART B Mar 31, 2012 PART B [id number] [phone] STEVEN ALEXANDRE JR S PATIENT MEDICARE (WNR) MEDICARE (M) PART A Mar 31, 2012 PART A [id number] STEVEN ALEXANDRE JR S PATIENT MEDICARE (WNR) MEDICARE (M) PART B Mar 31, 2012 PART B [id number] [phone] STEVEN ALEXANDRE JR S PATIENT MEDICARE PART D (WNR) PRESCRIPT ION PART D May 31, 2012 PART D [id number] [phone] STEVEN ALEXANDRE JR PATIENT MEDICARE PART D (WNR) PRESCRIPT ION PART D May 31, 2012 PART D [id number] STEVEN ALEXANDRE JR PATIENT Selected Encounter This section includes the information on record at [place] for the Encounter. Date/Time Encounter Type Encounter Description Reason Pro vider Source IHE Encounter Template Text not used by [place]
--- OUTSIDE RECORDS SUMMARY | 2025-02-13 11:28 | XMS_ITS | Encounter Summary ---
Author Name [place] Address [address] [place] [address] Care Team Providers Care Music Minister Name Role Phone FERMIN MEJIA Primary Care [...] Name Patient's Relationship to Policy Mendiola [facility]) MEDICARE ADVANTAGE [facility] ([facility]) Jul 31, 2017 [id number] [id number] STEVEN ALEXANDRE JR S PATIENT MEDICARE (WN) MEDICARE (M) PART A Mar 31, 2012 PART A [id number] STEVEN ALEXANDRE JR S PATIENT MEDICARE (WN) MEDICARE () PART B Mar 31, 2012 PART B [id number] STEVEN ALEAXNDRE JR S PATIENT MEDICARE (WN) MEDICARE () PART A Mar 31, 2012 PART A [id number] STEVEN ALEXANDRE JR S PATIENT MEDICARE ([facility]) MEDICARE (M) PART B Mar 31, 2012 PART B [id number] STEVEN ALEXANDRE JR S PATIENT MEDICARE (WNR) MEDICARE (M) PART A Mar 31, 2012 PART A [id number] [phone] STEVEN ALEXANDRE JR S PATIENT MEDICARE (WNR) MEDICARE (M) PART B Mar 31, 2012 PART B [id number] [phone] STEVEN ALEXANDRE JR S PATIENT MEDICARE (WNR) MEDICARE (M) PART A Mar 31, 2012 PART A [id number] [phone] STEVEN ALEXANDRE JR S PATIENT MEDICARE (WNR) MEDICARE (M) PART B Mar 31, 2012 PART B [id number] [phone] STEVEN ALEXANDRE JR S PATIENT MEDICARE (WNR) MEDICARE (M) PART A Mar 31, 2012 PART A [id number] STEVEN ALEXANDRE JR S PATIENT MEDICARE (WNR) MEDICARE (M) PART B Mar 31, 2012 PART B [id number] STEVEN ALEXANDRE JR PATIENT MEDICARE PART D (WNR) PRESCRIPT ION PART D May 31, 2012 PART D [id number] [phone] STEVEN ALEXANDRE JR PATIENT MEDICARE PART D (WNR) PRESCRIPT ION PART D May 31, 2012 PART D [id number] STEVEN ALEXANDRE JR PATIENT Selected Encounter This section includes the information on record at [place] for the Encounter. Date/Time Encounter Type Encounter Description Reason Provider Source Apr 24, 2024 01:00 PM OT EVAL LOW COMPLEX 30 MIN OCCUPATIONAL THERAPY ICD-10-CM I50.42 Chronic combined systolic and diastolic hrt fail JUNITO PORTER [facility] Encounter Template Text not used by [place] Assessments - Encounter Diagnoses This section includes the primary and secondary diagnoses documented for the Encounter. Date/Time Primary/Secondary Diagnosis Diagnosis Name Provider Source Apr 24, 2024 02:02 PM PRIMARY Chronic combined systolic and diastolic hrt fail JUNITO PORTER [place] [facility] [place] [facility] Plan of Treatment: Future Appointments (+ 6 months) and Future Tests (+/- 45 days) The Plan of Treatment section includes future care activities for the patient from all [facility]. This section includes future appointments and future orders which are active, pending or scheduled. Future Appointments This section includes appointments that were scheduled to occur 6 months from the date of the Encounter, up to a maximum of 20 appointments. The data comes from all [place] treatment [facility]. Appointment Date/Time Appointment Type Appointme nt Facility Name May 16, 2024 08:30 AM AMBULATORY - MEDICINE [facility] Jul 24, 2024 01:00 PM AMBULATORY - NONE [place] [facility] [place] [facility] Jul 27, 2024 08:00 AM AMBULATORY - REHAB MEDICIN [facility] [place] Aug 02, 2024 09:30 AM AMBULATORY - MEDICINE [place] [facility] [place] [facility] Aug 02, 2024 02:30 PM AMBULATORY - MEDICINE [facility] Aug 03, 2024 09:00 AM AMBULATORY - REHAB MEDICIN [facility] Aug 06, 2024 10:00 AM AMBULATORY - PSYCHIATRY [facility] Aug 06, 2024 03:30 PM AMBULATORY - REHAB MEDICIN [facility] Aug 10, 2024 10:00 AM AMBULATORY - REHAB MEDICIN [facility] Aug 16, 2024 07:30 AM AMBULATORY - REHAB MEDICIN [facility] Aug 21, 2024 09:30 [facility], [facility] 07:30 AM AMBULATORY - REHAB MEDICIN [facility] Aug 28, 2024 08:30 AM AMBULATORY - MEDICINE [place] [facility] [place] [facility] Sep 03, 2024 07:30 AM AMBULATORY - REHAB MEDICIN [facility] Sep 03, 2024 09:00 AM AMBULATORY - PSYCHIATRY [facility] Sep 12, 2024 10:00 AM AMBULATORY - MEDICINE [place] [facility] [place] [facility] Sep 13, 2024 07:30 AM AMBULATORY - REHAB [place] Sep 19, 2024 09:00 AM AMBULATORY - MEDICINE [place] [facility] [place] [facility] Sep 21, 2024 07:30 AM AMBULATORY - REHAB [place]ICIN [place] Sep 21, 2024 09:30 AM AMBULATORY - [facility] Active, Pending, and Scheduled Orders This [...] data comes from all [place] treatment facilities. Test Date/Time Test Type Test Details Facility Name March 26, 2024 12:00 AM Laboratory - Chemi stry Order BASIC METABOLIC PANEL (fasting) BLOOD (SST-SERUM) [facility] March 26, 2024 12:00 AM Laboratory - Chemi stry Order LIVER FUNCTION BLOOD (SST-SERUM) [facility] March 26, 2024 12:00 AM Laboratory - Chemi stry Order LIPID PANEL FASTING BLOOD (SST-SERUM) [facility] March 26, 2024 12:00 AM Laboratory - Chemi stry Order HEMOGLOBIN A1C PANEL BLOOD (LAV-BLOOD) [facility] March 26, 2024 12:00 AM Laboratory - Chemi stry Order CBC BLOOD (LAV-BLOOD) [facility] March 26, 2024 12:00 AM Laboratory - Chemi stry Order VITAMIN D (25-OH) BLOOD (SST-SERUM) [facility] Apr 20, 2024 12:00 AM Laboratory - Chemi stry Order BASIC METABOLIC PANEL (fasting) BLOOD (SST-SERUM) [facility] Apr 20, 2024 12:00 AM Laboratory - Chemi stry Order LIPID PANEL FASTING BLOOD (SST-SERUM) [facility] Apr 20, 2024 12:00 AM Laboratory - Chemi stry Order LIVER FUNCTION BLOOD (SST-SERUM) [facility] 21, 2024 12:00 AM Laboratory - Chemi stry Order VITAMIN D (25-OH) BLOOD (SST-SERUM) [facility] Apr 20, 2024 12:00 AM Laboratory - Chemi stry Order HEMOGLOBIN A1C PANEL BLOOD (LAV-BLOOD) [facility] Apr 20, 2024 12:00 AM Laboratory - Chemi stry Order CBC BLOOD (LAV-BLOOD) [facility] Social History: Smoking Status (Most current) [...] ity Oct 27, 2023 10:10 AM [place]-TOBACCO FORMER USER [place] [facility] [place] [facility] Tobacco Use History This section includes a history of the smoking, or tobacco-related health factors, that were collected on or before the date of the Encounter. The data comes from the [place] facility where the Encounter took place. Date/Time Smoking Status/Tobacco Use Comment Kai saul Oct 27, 2023 10:10 AM [place]-TOBACCO QUIT 15 YRS OR MORE [facility] Encounter Notes: All associated encounter notes This section contains the clinical notes associated to the Encounter. Date/Time Encounter Note(s) Provider Source Apr 24, 2024 01:07 PM OCCUPATIONAL MEDIC INE CONSULT: [facility] TITLE: CONSULT REPORT/OCCUPATIONAL THERAPY STANDARD TITLE: OCCUPATIONAL MEDICINE CONSULT DATE OF NOTE: APR 24, 2024@13:07 ENTRY DATE: APR 24, 2024@13:08:01 AUTHOR: JUNITO PORTER COSIGNER: FERMIN MEJIA URGENCY: STATUS: COMPLETED Initial Evaluation date: Mar Treatment Time: 49 minutes Diagnosis: Chronic Combined Systolic (Congestive) and Diastolic (Congestive) Heart Failure(ICD-10-CM I50.42) Provider: PCP Sophie OT Treatment Precautions: History of Falls Patient identified by full name and date of Subjective: goal is to obtain a walk in shower Pain: Left knee 01/13/24 knee replacement Objective: referred to OT for evaluation for Home Modifications/Adaptations: Home Improvement Structural Alteration Susi Focus: 1 chart review 2 Home: own home, lives with Primary entry: 4 stairs front concrete (2 railing ) Back entry: 1 step into the house, 3 steps into the kitchen B railings 2 levels: 1 level: master bedroom, bathroom, kitchen, dining, livingroom, sunroom. 2 level: 2 bedroom/1/2 between both bedrooms 3. Concerns: Bathroom: 1st floor tub/shower combination, difficult stepping up and over the tub. Trialed DME Inside and outside grab bars, removable shower head, have chair/bench. Looking to max safety with walk in shower Education: [facility] Susi process Assessment: s/p L knee replacement, 01/13/24, ambulates with cane, although gait antalgic, difficulty with tub transfers clearning LE over tub side. [place] main concerns in home, tub transfer and interested in making environmental improvements to max safety and I. [place] has trialed DME no longer as effective. All other safety measures have been made in home including railings at all entries. [place] is able to access all rooms on 1st floor ambulates with cane in home. Toilet is a higher height toilet, with no complaints, tub/shower combination modifcaitions recommended to improve Max safety and I. [facility] initiated by entering prosthetic request educated on process Non skid rosalia, grab bars, walk in shower (zero clearance/min lip), seat/bench, removable shower head. Discharge once all goals met /clint/ TRIP [place]/Danny OCCUPATIONAL THERAPIST Signed: 04/24/2024 14:02 /clint/ FERMIN MEJIA NP NURSE PRACTITIONER Cosigned: 04/25/2024 13:50 JUNITO PORTER [facility]
--- OUTSIDE RECORDS SUMMARY | 2025-02-13 11:28 | XMS_ITS | Clinical Summary ---
Author Organization [facility] [employer]erta[employer] [facility] Facility Address [address] [address] Care Team Providers Care Uke Driver Name Role Phone Josiah Akers MD Primary Care Provider [phone] Allergies Active Allergy Reactions Criticality Noted Date Comments Oxycodone-Acetaminophen 06/21/2022 Penicillins 06/21/2022 Spironolactone Other (see comments) 06/21/2022 Medications albuterol HFA (PROVENTIL HFA;VENTOLIN HFA) 108 (90 Base) MCG/ACT inhaler Active allopurinol (ZYLOPRIM) 100 MG tablet Take 1 tablet by mouth 1 (one) time each day Active amLODIPine (NORVASC) 10 MG tablet Take 1 tablet by mouth 1 (one) time each day Active atorvastatin (LIPITOR) 20 MG tablet Take 1 tablet by mouth 1 (one) time each day Active aspirin (ST ASHLEY) 81 MG EC tablet Take 1 tablet by mouth 1 (one) time each day Active carvedilol (COREG) 25 MG tablet Take 1 tablet by mouth in the morning and 1 tablet in the evening. Active bisacodyl (DULCOLAX) 10 MG suppository Insert 1 suppository into the rectum at bed time Active fluticasone (Flovent Diskus) 50 MCG/BLIST diskus inhaler Inhale as needed Active warfarin (COUMADIN) 2.5 MG tablet Take 2.5 mg by mouth 1 (one) time each day 2 Active warfarin (COUMADIN) 5 MG tablet Take 5 mg by mouth 1 (one) time each day Active torsemide (DEMADEX) 20 MG tablet Take 4 tablets by mouth in the morning and 4 tablets in the evening. Active spironolactone (ALDACTONE) 25 MG tablet Take 1 tablet by mouth every morning Active sildenafil (VIAGRA) 100 MG tablet Take 1 tablet by mouth 1 (one) time each day Active selenium sulfide (SELSUN) 2.5 % shampoo 2 Active Entresto 97-103 MG per tablet Take 2 tablets by mouth 2 (two) times a day 2 Active Active Problems Problem Noted Date Diagnosed Date Essential (primary) hypertension 10/12/2023 Chronic airway obstruction, not elsewhere classi fied 10/12/2023 Sleep apnea 10/12/2023 Family History Medical History Relation Comments Hypertension Father Hypertension Mother Hypertension Sibling 1 sister Diabetes Sibling 2 brother Relation Status Comments Father Unknown Mother Unknown Sibling 1 Sibling 2 Social History Tobacco Use Types Packs/Day Years Used Date Smoking Tobacco: Never Smokeless Tobacco: Never Tobacco Cessation:Counseling Given: Not Answered Alcohol Use Standard Drinks/Week Comments No 0 (1 standard drink = 0.6 oz pur e alcohol) Sex and Gender Information Value Date Recorded Sex Assigned at Not on file Legal Sex Male 5:18 PM EST Gender Identity Not on file Sexual Orientation Not on file Last Filed Vital Signs Vital Sign Reading Time Taken Comments Blood Pressure 122/66 03/02/2023 1:30 PM EDT Pulse 61 10/06/2022 2:38 PM EST Temperature - - Respiratory Rate - - Oxygen Saturation 93% 10/06/2022 2:38 PM EST Inhaled Oxygen Concentration - - Weight 130 kg (287 lb) 03/02/2023 1:30 PM EDT Height - - Body Mass Index - - Plan of Treatment Health Maintenance Due Date Last Done Comments Pneumococcal Vaccine: 50+ Ye ars (1 of 2 - PCV) 1975 Colorectal Cancer Screening: Annual FOBT 2005 Colorectal Cancer Screening: Colonoscopy 2005 Colorectal Cancer Screening: Sigmoidoscopy 2005 Influenza Vaccine (Season Ended) 2025 Hepatitis B Vaccine Aged Out No longe r eligible based on patient's age to complete this topic Insurance Medicare Medicaid [place] Medicare Medicaid [place] Care Teams Uke Driver Relationship Specialty Start Date End Date Josiah Akers MD [address] [place] [address] PCP - General 11/10/20
--- OUTSIDE RECORDS SUMMARY | 2025-02-13 11:28 | XMS_ITS | Continuity of Care Document ---
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 It does not include entries that were removed or entered in error. Problem Status Onset Date Problem Type Date of Resolution Comments Source Anaemia due to blood loss Active Condition [facility] Asthma Active Condition [place] Benign hypertension Active Condition [place] Cardiac pacemaker in situ Active Condition Nov 08, 2016 Entered By: ELDA LOCKWOOD Comment: EF 33% [facility] CHF - Congestive Heart Failure (SCT 54246522) Active Condition Apr 23, 2024 Entered By: FERMIN MEJIA Comment: Combined systolic and diastolic heart failure.Apr 23, 2024 Entered By: FERMIN MEJIA Comment: LVEF 33% [facility] Chronic combined systolic and diastolic heart failure Active Condition Apr 23, 2024 Entered By: FERMIN MEJIA Comment: f/b Dr. Ibrahim, [facility] Chronic Kidney Disease Stage 3B (SCT [id number]) Active Condition Apr 23, 2024 Entered By: FERMIN MEJIA Comment: f/b Dr Ham [facility] Chronic post-traumatic stress disorder Active Condition [facility] Contusion Active Condition [facility] Contusion of right shoulder Active Condition [facility] Diabetes mellitus Active Condition [place] Erectile dysfunction Active Condition [facility] Ex-smoker Active Condition Apr 02 Entered By: ELDA LOCKWOOD Comment: no AAA 04/01/22 [facility] Gout Active Condition [facility] Heart disease Active Condition [facility] Long-term current use of anticoagulant Active Condition May 12, 2020 Entered By: ELDA LOCKWOOD Comment: cardiac valve [facility] Low back pain Active Condition [facility] Lower urinary tract symptoms due to benign prostatic hypertrophy Active Condition [facility] Microscopic hematuria Active Condition [facility] Onychomycosis of toenails Active Condition [facility] Outside providers Active Condition Apr 23, 2024 Entered By: FERMIN MEJIA Comment: Community PCP: Dr. Josiah Akers, [facility] 2023 Entered By: FERMIN MEJIA Comment: Cardiology: Dr. Ibrahim [facility] 2023 Entered By: FERMIN MEJIA Comment: Nephrology: Dr. Billings 2023 Entered By: FERMIN MEJIA [facility] Entered By: FERMIN MEJIA Comment: Pulmonology: Dr. Gonzalez 2023 Entered By: FERIMN MEJIA Comment: General surgery: [facility] Sleep apnea Active Condition Apr 23, 2024 Entered By: FERMIN MEJIA Comment: On BiPAP with overnight oxygen 2 LNC [facility] Tubular adenoma Active Condition Jun 04, 2022 Entered By: ELDA LOCKWOOD Comment: 05/20/22 could defer further screening for colorectal cancer given advanced cardiopulomnary comorbidities [facility] Unstable angina Active Condition [facility] Diagnosis: ICD-10-CM Z71.89 Other specified counseling Active Diagnosis [place] Diagnosis: ICD-10-CM M54.2 Cervicalgia Active Diagnosis [facility] Diagnosis: ICD-10-CM L60.3 Nail dystrophy [facility] Diagnosis: ICD-10-CM K08.434 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, class IV Active Diagnosis [facility] Diagnosis: ICD-10-CM K03.6 Deposits [accretions] on teeth Active Diagnosis [facility] Diagnosis: ICD-10-CM F43.12 Post-traumatic stress disorder, chronic Active Diagnosis [place] Diagnosis: ICD-10-CM M25.551 Pain in right hip Active Diagnosis [facility] Diagnosis: ICD-10-CM N18.32 Chronic kidney disease, stage 3b Active Diagnosis [place] Diagnosis: ICD-10-CM M25.569 Pain in unspecified knee Active Diagnosis [facility] Diagnosis: ICD-10-CM M79.641 Pain in right hand Active Diagnosis [facility] Diagnosis: ICD-10-CM L60.0 Ingrowing nail [facility] Diagnosis: ICD-10-CM S90.31XA Contusion of right foot, initial encounter Active Diagnosis [facility] Diagnosis: ICD-10-CM M25.511 Pain in right shoulder Active Diagnosis [facility] Diagnosis: ICD-10-CM Z46.0 Encounter for fit/adjst of spectacles and contact lenses Active Diagnosis [facility] Diagnosis: ICD-10-CM E11.9 Type 2 diabetes mellitus without complications Active Diagnosis [facility] Diagnosis: ICD-10-CM I50.42 Chronic combined systolic and diastolic hrt fail Active Diagnosis [place] Diagnosis: ICD-10-CM H52.4 Presbyopia Active Diagnosis [facility] Diagnosis: ICD-10-CM I50.9 Heart failure, unspecified Active Diagnosis [place] Diagnosis: ICD-10-CM R68.89 Other general symptoms and signs Active Diagnosis [place] Diagnosis: ICD-10-CM E11.51 Type 2 diabetes w diabetic peripheral angiopath w/o gangrene Active Diagnosis [place] Diagnosis: ICD-10-CM Z71.3 Dietary counseling and surveillance Active Diagnosis [place] Diagnosis: ICD-10-CM S70.01XS Contusion of right hip, sequela Active Diagnosis [place] Diagnosis: ICD-10-CM Z23 Encounter for immunization Active Diagnosis [place] Diagnosis: ICD-10-CM H40.013 Open angle with borderline findings, low risk, bilateral Active Diagnosis [facility] Medications Combined list of outpatient medications from Department of Defense and Veterans Affairs facilities.Medications provided include 1) outpatient medications from the last 15 months, and 2) patient-reported medications. Medication Details Route Status Patient Instructions Prescription Expires Prescription Number Last Dispense Date Ordering Provider Order Date Order Qty Source ALLOPURINOL 100MG TAB TAKE ONE TABLET BY MOUTH DAILY ORAL ACTIVE ALEX-ELEAZAR HOYOSYJANETTESAMANTHA DC 2016 [facility] [place] AMLODIPINE BESYLATE 5MG TAB TAKE ONE TABLET BY MOUTH ONCE DAILY ORAL ACTIVE ALEX-LESLY LANDA DC 2021 [facility] AMMONIUM LACTATE 12% LOTION APPLY SMALL AMOUNT TOPICALL Y TWICE DAILY FOR DRY SKIN FOR DRY IRRITATE D SKIN TOPICA L ACTIVE 09/27/2025 [id number] 5 VANDA RASHEED F 2023 240 [place] ASPIRIN 81MG TAB,EC TAKE ONE TABLET BY MOUTH DAILY ORAL ACTIVE ALEX-LESLY LANDA DC 2016 [facility] [place] ATORVASTATI N CA 80MG TAB TAKE ONE-HALF TABLET BY MOUTH ONCE DAILY FOR HIGH CHOLESTE ROL ORAL ACTIVE 12/19/2025 [id number] 5 Leobardo MEJIAD A 2024 45 [place] CARVEDILOL 25MG TAB TAKE ONE TABLET BY MOUTH TWICE DAILY ORAL ACTIVE Leobardo MEJIA AVID A 2023 [facility] [place] CEPHALEXIN 500MG CAP TAKE FOUR CAPSULES BY MOUTH ONE TIME FOR INFECTIO N ORAL 05/25/2024 [id number] 4 ÁNGELA POTTS 2023 4 [facility] CLINDAMYCIN HCL 300MG CAP TAKE TWO CAPSULES BY MOUTH ONE TIME FOR INFECTIO N CAUSED BY BACTERIA ONE HOUR PRIOR TO DENTAL APPOINTM ENT ORAL 08/23/2024 [id number] 4 KALYAN HERNANDEZ 2023 10 [facility] CYANOCOBALA MIN 500MCG TAB TAKE ONE TABLET BY MOUTH ONCE DAILY FOR PREVENTI ON OF VITAMIN B12 DEFICIEN CY ORAL ACTIVE 08/03/2025 [id number] 5 Leobardo MEJIA AVID A 2023 100 [facility] [place] FERROUS GLUCONATE 324MG TAB TAKE ONE TABLET BY MOUTH ONCE DAILY ORAL ACTIVE LESLY MARIE IA 2021 [place] FLUTICASONE PROPIONATE 220MCG/SPRA Y AEROSOL,INH L,ORAL,12GM INHALE 2 PUFFS BY MOUTH TWICE DAILY RESPIR ATORY (INHAL ATION) ACTIVE IZABELA HOLLAND [place] INSULIN,GLA RGINE (LANTUS) INJ INJECT 15 UNITS SUBCUTAN EOUSLY ONCE DAILY SUBCUT ANEOUS ACTIVE LESLY MARIE DC 2021 [facility] [place] ISOSORBIDE MONONITRATE 30MG TAB,SA TAKE ONE TABLET BY MOUTH ONCE DAILY TO PREVENT ANGINA ORAL 01/09/2025 [id number] 5 Leobardo MEJIA AVID A 2024 30 [place] LIDOCAINE 5% PATCH APPLY 1 PATCH TOPICALL Y ONCE DAILY NEEDED FOR NERVE PAIN (LEAVE PATCH ON FOR 12 HOURS, THEN REMOVE PATCH) TOPICA L 10/25/2024 [id number] COSME MCGRATH 2023 30 [facility] MULTIVITAMI NS W/MINERALS TAB TAKE ONE TABLET BY MOUTH ONCE DAILY ORAL ACTIVE LESLY MARIE DC [place] OLODATEROL 2.5MCG/TIOT ROPIUM 2.5MCG/ACTU AT INHL,ORAL,6 0D,4GM INHALE 2 PUFFS (1 DOSE) BY MOUTH ONCE DAILY RESPIR ATORY (INHAL ATION) ACTIVE LESLY MARIE DC 2016 [facility] [place] SACUBITRIL 97MG/VALSAR MAE 103MG TAB TAKE ONE TABLET BY MOUTH TWICE DAILY ORAL ACTIVE LESLY MARIE DC 2021 [facility] [place] SEMAGLUTIDE 1MG/0.75ML INJ,SOLN,PE N,3ML INJECT 1MG SUBCUTAN EOUSLY ONCE A WEEK SUBCUT ANEOUS ACTIVE MICHELE ZHENG 2022 [facility] [place] SPIRONOLACT ONE 25MG TAB TAKE ONE TABLET BY MOUTH ONCE DAILY ORAL ACTIVE ALEX-GR TAMMY,CYNTH IA 2021 [facility] [place] [facility] TORSEMIDE 20MG TAB TAKE ONE TABLET BY MOUTH EVERY MORNING FOR 90 DAYS AND TAKE TWO TABLETS BY MOUTH EVERY EVENING FOR 90 DAYS ORAL ACTIVE Leobardo MEJIA A 2023 [facility] [place] WARFARIN (NON-VA) TAB TAKE 5 BY MOUTH EVERY DAY ORAL ACTIVE ALEX-ELEAZAR TAMMY,CYNTH IA 2017 [facility] [place] Allergies, Adverse Reactions, Alerts Combined list of allergies from Department of Defense and Veterans Affairs facilities. It does not include entries that were removed or entered in error. Substance Category Reaction Severity Reaction type Status Date Reported Comments Source PENICILLIN Propensity to adverse reactions to drug (finding) active 6 [facility] PENICILLIN Propensity to adverse reactions to drug (finding) Eruption active 7 [facility] PERCOCET Propensity to adverse reactions to drug (finding) Sweating, Elevated blood pressure active 6 [facility] PERCOCET Propensity to adverse reactions to drug (finding) Eruption active 7 [facility] SPIRONOLACTON E Propensity to adverse reactions to drug (finding) Nausea and vomiting MODERATE active 4 [facility] Immunizations Combined list of available immunizations from the Department of [facility] and [facility] Affairs facilities. 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 [place] [facility] [facility] COVID-19 (MODERNA), MRNA, LNP-S, PF, 50 MCG/0.5 ML (AGES 12+ YEARS) 1 2022 DEEPIKA HUERTA E R LEFT DELTO ID [id number] 312 complet ed [facility] AT [facility] IELD PNEUMOCOCCAL POLYSACCHARID E PPV23 2022 JADA HUERTAL E R RIGHT DEL[place] ID [id number] 33 complet ed ADMINISTE RED AT [facility], [facility] [place] COVID-19 (PFIZER), MRNA, LNP-S, PF, 30 MCG/0.3 ML DOSE 4 2021 208 complet ed [facility] COVID-19 (MODERNA), MRNA, LNP-S, PF, 100 MCG/0.5ML DOSE OR 50 MCG/0.25ML DOSE 3 2020 207 complet ed [facility] PNEUMOCOCCAL CONJUGATE PCV 13 2020 133 complet ed [facility] [place] ZOSTER RECOMBINANT 2 2020 187 complet ed [facility] [place] ZOSTER RECOMBINANT 1 2020 187 complet ed [facility] [place] COVID-19 (MODERNA), MRNA, LNP-S, PF, 100 MCG/0.5 ML DOSE 2 2020 207 complet ed [facility] COVID-19 (MODERNA), MRNA, LNP-S, PF, 100 MCG/0.5 ML DOSE 1 2020 207 complet ed [facility] TD(ADULT) UNSPECIFIED FORMULATION 2018 139 complet ed [facility] TDAP 2018 115 complet ed office note [facility] PNEUMOCOCCAL POLYSACCHARID E PPV23 2009 33 complet ed [facility] Results Combined list of recent chemistry, hematology and other laboratory results from Department of Defense and Veterans Affairs, ranging from 15 months to all on record, depending upon the facility. Order Name Results Value Reference Range Date Interpretation Specimen Comments Source CBC AND DIFF (AUTO) LEUKOCYTES [#/VOLUME] IN BLOOD BY AUTOMATED COUNT 4.46 10*3/u L 4.50 - 11.00 12/18 L Specimen Type: BLOOD No comment entered. Ordering Provider: JUVENCIO MEJIA Report Released Date/Time: Dec 10, 2024 03:08 PM Reporting Lab: [address] [address] Performing Lab: [address] [address] [place] CBC AND DIFF (AUTO) ERYTHROCYTE S [#/VOLUME] IN BLOOD BY AUTOMATED COUNT 3.84 10*6/u L 4.23 - 5.66 12/18 L Specimen Type: BLOOD No comment entered. Ordering Provider: JUVENCIO MEJIA A Report Released Date/Time: Dec 10, 2024 03:08 PM Reporting Lab: [facility] [place] [address] [address] Performing Lab: [facility] [address] [address] [place] CBC AND DIFF (AUTO) HEMOGLOBIN [MASS/VOLUM E] IN BLOOD 10.6 g/dL 12.8 - 17 12/18 L Specimen Type: BLOOD No comment entered. Ordering Provider: JUVENCIO MEJIA A Report Released Date/Time: Dec 10, 2024 03:08 PM Reporting Lab: [facility] [address] [address] Performing Lab: [facility]N [facility] [address] [address] [place] CBC AND DIFF (AUTO) HEMATOCRIT [VOLUME FRACTION] OF BLOOD BY AUTOMATED COUNT 32.4 39.2 - 50.4 12/18 L Specimen Type: BLOOD No comment entered. Ordering Provider: JUVENCIO MEJIA A Report Released Date/Time: Dec 10, 2024 03:08 PM Reporting Lab: [facility] [address] [address] Performing Lab: [facility] [place] [address] [address] [place] CBC AND DIFF (AUTO) MCV [ENTITIC VOLUME] BY AUTOMATED COUNT 84.4 fL 82 - 99 12/18 Specimen Type: BLOOD No comment entered. Ordering Provider: JUVENCIO MEJIA A Report Released Date/Time: Dec 10, 2024 03:08 PM Reporting Lab: [facility] [address] [address] Performing Lab: [facility] [address] [address] [place] CBC AND DIFF (AUTO) MCHC [MASS/VOLUM E] BY AUTOMATED COUNT 32.7 g/dL 30.8 - 35.1 12/18 Specimen Type: BLOOD No comment entered. Ordering Provider: JUVENCIO MEJIA A Report Released Date/Time: Dec 10, 2024 03:08 PM Reporting Lab: [facility] [address] [address] Performing Lab: [facility] [address] [address] [place] CBC AND DIFF (AUTO) PLATELETS [#/VOLUME] IN BLOOD BY AUTOMATED COUNT 150 10*3/u L 140 - 360 12/18 Specimen Type: BLOOD No comment entered. Ordering Provider: JUVENCIO MEJIA A Report Released Date/Time: Dec 10, 2024 03:08 PM Reporting Lab: [facility] [address] [address] Performing Lab: [facility] [address] [address] [place] CBC AND DIFF (AUTO) ERYTHROCYTE DISTRIBUTIO N WIDTH [RATIO] BY AUTOMATED COUNT 15.7 12.0 - 16.0 12/18 Specimen Type: BLOOD No comment entered. Ordering Provider: JUVENCIO MEJIA A Report Released Date/Time: Dec 10, 2024 03:08 PM Reporting Lab: [facility] [address] [address] Performing Lab: [facility] [address] [address] [place] CBC AND DIFF (AUTO) MONOCYTES [#/VOLUME] IN BLOOD BY AUTOMATED COUNT 0.72 10*3/u L 0.30 - 1.10 12/18 Specimen Type: BLOOD No comment entered. Ordering Provider: JUVENCIO MEJIA A Report Released Date/Time: Dec 10, 2024 03:08 PM Reporting Lab: [facility] [address] [address] Performing Lab: [place] [facility] [place] [facility] [address] [facility] [address] [place] CBC AND DIFF (AUTO) MCH [ENTITIC MASS] BY AUTOMATED COUNT 27.6 pg 26.2 - 32.6 12/18 Specimen Type: BLOOD No comment entered. Ordering Provider: JUVENCIO MEJIA A Report Released Date/Time: Dec 10, 2024 03:08 PM Reporting Lab: [place] [facility] [place] [facility] [address] [facility] [address] Performing Lab: [place] [facility] [place] [facility] [address] [facility] [address] [place] CBC AND DIFF (AUTO) NEUTROPHILS /100 LEUKOCYTES IN BLOOD BY AUTOMATED COUNT 58.6 43.7 - 75.8 12/18 Specimen Type: BLOOD No comment entered. Ordering Provider: JUVENCIO MEJIA A Report Released Date/Time: Dec 10, 2024 03:08 PM Reporting Lab: [facility] [place] [address] [address] Performing Lab: [place] [facility] [place] [place] [address] [address] [place] CBC AND DIFF (AUTO) LYMPHOCYTES /100 LEUKOCYTES IN BLOOD BY AUTOMATED COUNT 18.2 14.0 - 42.3 12/18 Specimen Type: BLOOD No comment entered. Ordering Provider: JUVENCIO MEJIA A Report Released Date/Time: Dec 10, 2024 03:08 PM Reporting Lab: [facility] [place] [address] [address] Performing Lab: [place] [facility] [place] [address] [address] [place] CBC AND DIFF (AUTO) MONOCYTES/1 00 LEUKOCYTES IN BLOOD BY AUTOMATED COUNT 16.1 5.1 - 13.7 12/18 H Specimen Type: BLOOD No comment entered. Ordering Provider: JUVENCIO MEJIA A Report Released Date/Time: Dec 10, 2024 03:08 PM Reporting Lab: [facility] [place] [address] [address] Performing Lab: [facility] [address] [address] [place] CBC AND DIFF (AUTO) EOSINOPHILS /100 LEUKOCYTES IN BLOOD BY AUTOMATED COUNT 6.5 0.4 - 6.8 12/18 Specimen Type: BLOOD No comment entered. Ordering Provider: JUVENCIO MEJIA A Report Released Date/Time: Dec 10, 2024 03:08 PM Reporting Lab: [facility] [address] [address] Performing Lab: [facility] [address] [address] [place] CBC AND DIFF (AUTO) BASOPHILS/1 00 LEUKOCYTES IN BLOOD BY AUTOMATED COUNT 0.4 0.1 - 2.0 12/18 Specimen Type: BLOOD No comment entered. Ordering Provider: JUVENCIO MEJIA A Report Released Date/Time: Dec 10, 2024 03:08 PM Reporting Lab: [facility] [address] [address] Performing Lab: [facility] [address] [address] [place] CBC AND DIFF (AUTO) NEUTROPHILS [#/VOLUME] IN BLOOD BY AUTOMATED COUNT 2.61 10*3/u L 2.20 - 7.60 12/18 Specimen Type: BLOOD No comment entered. Ordering Provider: JUVENCIO MEJIA A Report Released Date/Time: Dec 10, 2024 03:08 PM Reporting Lab: [facility] [address] [address] Performing Lab: [facility] [address] [address] [place] CBC AND DIFF (AUTO) LYMPHOCYTES [#/VOLUME] IN BLOOD BY AUTOMATED COUNT 0.81 10*3/u L 1.00 - 3.20 12/18 L Specimen Type: BLOOD No comment entered. Ordering Provider: JUVENCIO MEJIA A Report Released Date/Time: Dec 10, 2024 03:08 PM Reporting Lab: [facility]N [address] [address] Performing Lab: [facility]TR[facility]USE[address] [address] [place] CBC AND DIFF (AUTO) EOSINOPHILS [#/VOLUME] IN BLOOD BY AUTOMATED COUNT 0.29 10*3/u L 0.03 - 0.44 12/18 Specimen Type: BLOOD No comment entered. Ordering Provider: JUVENCIO MEJIA A Report Released Date/Time: Dec 10, 2024 03:08 PM Reporting Lab: [facility]TR[facility] [address] Performing Lab: [facility]N [address] [address] [place] CBC AND DIFF (AUTO) BASOPHILS [#/VOLUME] IN BLOOD BY AUTOMATED COUNT 0.02 10*3/u L 0.01 - 0.13 12/18 Specimen Type: BLOOD No comment entered. Ordering Provider: JUVENCIO MEJIA A Report Released Date/Time: Dec 10, 2024 03:08 PM Reporting Lab: [facility]N [facility] [address] Performing Lab: [facility]TR[facility]ENTERUSE[address] [address] [place] CBC AND DIFF (AUTO) IMMATURE GRANULOCYTE S/100 LEUKOCYTES IN BLOOD BY AUTOMATED COUNT 0.2 0.0 - 0.7 12/18 Specimen Type: BLOOD No comment entered. Ordering Provider: JUVENCIO MEJIA A Report Released Date/Time: Dec 10, 2024 03:08 PM Reporting Lab: [facility] [address] Performing Lab: [facility]N [address] [address] [place] CBC AND DIFF (AUTO) IMMATURE GRANULOCYTE S [#/VOLUME] IN BLOOD 0.01 10*3/u L 0.00 - 0.06 12/18 Specimen Type: BLOOD No comment entered. Ordering Provider: JUVENCIO MEJIA A Report Released Date/Time: Dec 10, 2024 03:08 PM Reporting Lab: [facility] [address] [facility] [address] Performing Lab: [facility]ENTER[facility] [address] [address] [place] CBC AND DIFF (AUTO) NRBC % 0.0 0.0 - 0.0 12/18 Specimen Type: BLOOD No comment entered. Ordering Provider: JUVENCIO MEJIA A Report Released Date/Time: Dec 10, 2024 03:08 PM Reporting Lab: [place] [facility] [place] [address] [address] Performing Lab: [facility] [address] [place] CBC AND DIFF (AUTO) NRBC, ABS 0.00 10*3/u L 0.00 - 0.00 12/18 Specimen Type: BLOOD No comment entered. Ordering Provider: JUVENCIO MEJIA A Report Released Date/Time: Dec 10, 2024 03:08 PM Reporting Lab: [facility] [address] [address] Performing Lab: [facility] TRN [facility]ENTERUSE[address] [address] [place] PO4 PHOSPHATE [MASS/VOLUM E] IN SERUM OR PLASMA 3.0 mg/dL 2.5 - 5.0 12/18 Specimen Type: SERUM Comment: NOTE CHANGE FROM PREVIOUS RESULTS Ordering Provider: JUVENCIO MEJIA A Report Released Date/Time: Dec 10, 2024 03:08 PM Reporting Lab: [facility] [address] [address] Performing Lab: [facility] [address] [place] MAGNESIUM MAGNESIUM [MASS/VOLUM E] IN SERUM OR PLASMA 1.6 mg/dL 1.6 - 2.6 12/18 Specimen Type: SERUM Comment: NOTE CHANGE FROM PREVIOUS RESULTS Ordering Provider: JUVENCIO MEJIA A Report Released Date/Time: Dec 10, 2024 03:08 PM Reporting Lab: [facility] [place] [address] [place] [address] Performing Lab: [facility] [address] [facility] [address] [place] BASIC METABOLIC PANEL (non-fast ing) UREA NITROGEN [MASS/VOLUM E] IN SERUM OR PLASMA 45 mg/dL 7 - 25 12/18 H Specimen Type: SERUM Comment: NOTE CHANGE FROM PREVIOUS RESULTS Ordering Provider: JUVENCIO MEJIA A Report Released Date/Time: Dec 10, 2024 03:08 PM Reporting Lab: [facility] [address] [address] Performing Lab: [facility] [address] [address] [place] BASIC METABOLIC PANEL (non-fast ing) GLUCOSE [MASS/VOLUM E] IN SERUM OR PLASMA 98 mg/dL 65 - 100 12/18 Specimen Type: SERUM Comment: NOTE CHANGE FROM PREVIOUS RESULTS Ordering Provider: JUVENCIO MEJIA A Report Released Date/Time: Dec 10, 2024 03:08 PM Reporting Lab: [facility] [address] [address] Performing Lab: [facility] [address] [address] [place] BASIC METABOLIC PANEL (non-fast ing) SODIUM [MOLES/VOLU ME] IN SERUM OR PLASMA 139 mmol/L 135 - 145 12/18 Specimen Type: SERUM Comment: NOTE CHANGE FROM PREVIOUS RESULTS Ordering Provider: JUVENCIO MEJIA A Report Released Date/Time: Dec 10, 2024 03:08 PM Reporting Lab: [facility] [address] [address] Performing Lab: [facility] [address] [address] [place] BASIC METABOLIC PANEL (non-fast ing) POTASSIUM [MOLES/VOLU ME] IN SERUM OR PLASMA 4.3 mmol/L 3.5 - 5.0 12/18 Specimen Type: SERUM Comment: NOTE CHANGE FROM PREVIOUS RESULTS Ordering Provider: JUVENCIO MEJIA A Report Released Date/Time: Dec 10, 2024 03:08 PM Reporting Lab: [facility] [address] [address] Performing Lab: [facility]N [facility] [address] [address] [place] BASIC METABOLIC PANEL (non-fast ing) CHLORIDE [MOLES/VOLU ME] IN SERUM OR PLASMA 102 mmol/L 100 - 110 12/18 Specimen Type: SERUM Comment: NOTE CHANGE FROM PREVIOUS RESULTS Ordering Provider: JUVENCIO MEJIA A Report Released Date/Time: Dec 10, 2024 03:08 PM Reporting Lab: [facility] [address] [address] Performing Lab: [facility] [address] [address] [place] BASIC METABOLIC PANEL (non-fast ing) CARBON DIOXIDE, TOTAL [MOLES/VOLU ME] IN SERUM OR PLASMA 28 meq/L 20 - 30 12/18 Specimen Type: SERUM Comment: NOTE CHANGE FROM PREVIOUS RESULTS Ordering Provider: JUVENCIO MEJIA A Report Released Date/Time: Dec 10, 2024 03:08 PM Reporting Lab: [facility] [address] [address] Performing Lab: [facility] [address] [address] [place] BASIC METABOLIC PANEL (non-fast ing) CREATININE [MASS/VOLUM E] IN SERUM OR PLASMA 2.65 mg/dL 0.50 - 1.40 12/18 H Specimen Type: SERUM Comment: NOTE CHANGE FROM PREVIOUS RESULTS Ordering Provider: JUVENCIO MEJIA A Report Released Date/Time: Dec 10, 2024 03:08 PM Reporting Lab: [facility] [address] [address] Performing Lab: [facility]N [facility] [address] [address] [place] BASIC METABOLIC PANEL (non-fast ing) GLOMERULAR FILTRATION RATE/1.73 SQ M.PREDICTED [VOLUME RATE/AREA] IN SERUM, PLASMA OR BLOOD BY CREATININE- BASED FORMULA (CKD-EPI 2020) 25 mL/min 60 12/18 L Specimen Type: SERUM Comment: NOTE CHANGE FROM PREVIOUS RESULTS Ordering Provider: JUVENCIO MEJIA A Report Released Date/Time: Dec 10, 2024 03:08 PM Reporting Lab: [facility]RL WSTRN [facility] [address] Performing Lab: [place] CNTR[facility] [address] [place] PSA PROSTATE SPECIFIC AG [MASS/VOLUM E] IN SERUM OR PLASMA 2.57 ng/mL 0.00 - 4.00 12/07 Specimen Type: SERUM No comment entered. Ordering Provider: JUVENCIO MEJIA A Report Released Date/Time: Dec 07, 2024 02:39 PM Reporting Lab: [facility] [address] [address] Performing Lab: [facility]N [address] [address] [place] VITAMIN D (25-OH) 25-HYDROXYV ITAMIN D3 [MASS/VOLUM E] IN SERUM OR PLASMA 42 ng/mL 20 - 50 12/07 Specimen Type: SERUM No comment entered. Ordering Provider: JUVENCIO MEJIA A Report Released Date/Time: Dec 07, 2024 02:39 PM Reporting Lab: [facility] [address] Performing Lab: [place] CNTRL TRN [facility]ENTERUSE[address] [address] [place] TSH THYROTROPIN [UNITS/VOLU ME] IN SERUM OR PLASMA 0.78 u[IU]/ mL 0.35 - 5.00 12/07 Specimen Type: SERUM No comment entered. Ordering Provider: JUVENCIO MEJIA A Report Released Date/Time: Dec 07, 2024 02:39 PM Reporting Lab: [facility]RL WSTRN MASSUSE[address] [address] Performing Lab: [facility]ENTERUSE[address] [address] [place] VITAMIN B12 COBALAMIN (VITAMIN B12) [MASS/VOLUM E] IN SERUM OR PLASMA 1277 pg/mL 200 - 900 12/07 H Specimen Type: SERUM No comment entered. Ordering Provider: JUVENCIO MEJIA A Report Released Date/Time: Dec 07, 2024 02:39 PM Reporting Lab: [facility]N [address] [address] Performing Lab: [facility] [address] [address] [place] MICROALBU MIN CREATININ E RATIO PANEL MICROALBUMI N/CREATININ E [MASS RATIO] IN URINE 85.9 mg/g 0 - 29.9 12/07 H Specimen Type: URINE No comment entered. Ordering Provider: JUVENCIO MEJIA A Report Released Date/Time: Dec 07, 2024 02:39 PM Reporting Lab: [facility] [address] [address] Performing Lab: [facility]TRN [facility] [address] [place] MICROALBU MIN CREATININ E RATIO PANEL MICROALBUMI N [MASS/VOLUM E] IN URINE 6.6 mg/dL 12/07 Specimen Type: URINE No comment entered. Ordering Provider: JUVENCIO MEJIA A Report Released Date/Time: Dec 07, 2024 02:39 PM Reporting Lab: [facility] [address] [address] Performing Lab: [facility]ENTERUSE[address] [address] [place] MICROALBU MIN CREATININ E RATIO PANEL CREATININE [MASS/VOLUM E] IN URINE 76.80 mg/dL 12/07 Specimen Type: URINE No comment entered. Ordering Provider: JUVENCIO MEJIA A Report Released Date/Time: Dec 07, 2024 02:39 PM Reporting Lab: [facility]USE[address] [address] Performing Lab: [facility] [address] [address] [place] HEMOGLOBI N A1C PANEL HEMOGLOBIN A1C/HEMOGLO BIN.TOTAL IN BLOOD BY HPLC 7.1 4.0 - 5.6 12/07 H Specimen Type: BLOOD Comment: Values obtained from A1C measurement s can vary. For atypical A1C assays, a reported value of 7.0 could actually be between 6.72 and 7.28 if measured by a reference method. A reported value of 9.0 could actually be between 8.73 and 9.27. Ref: http://www. ngsp.org/[place] Pdata.asp Ordering Provider: JUVENCIO MEJIA Report Released Date/Time: Dec 07, 2024 02:39 PM Reporting Lab: [facility] [address] [address] Performing Lab: CT CNTR WSTRN [facility] [address] [address] [facility] Vital Signs Combined list of inpatient and outpatient Vital Signs from Department of Defense and Veterans Affairs, ranging from 12 months to all on record, depending upon the facility. Vital Sign Value Date Comments Source SYSTOLIC BLOOD PRESSURE 117 12/10/19 25 14:49:31 [facility] DIASTOLIC BLOOD PRESSURE 64 025 14:49:31 [facility] PULSE OXIMETRY 93 12/10/2024 14:49:31 [facility]PUBLIC WEIGHT 12/10/2024 14:49:31 REPUBL[facility] TEMPERATURE 97.9 12/10/2024 14:49:31 [facility] PULSE 77 12/10/2024 14:49:31 REPUBLIC SYSTOLIC BLOOD PRESSURE 104 09/25/20 24 13:45:27 [place] [facility] [place] [facility] DIASTOLIC BLOOD PRESSURE 66 024 13:45:27 [place] [facility] [place] [facility] PULSE OXIMETRY 94 09/25/2024 13:45:27 [place] [facility] [place] [facility] WEIGHT 269 09/25/2024 13:45:27 [place] [facility] [place] [facility] BMI 37 kg/m2 09/25/2024 13:45:27 [facility] [place] [facility] PAIN 1 09/25/2024 13:45:27 [facility] [place] [facility] TEMPERATURE 98 09/25/2024 13:45:27 [facility] [place] [facility] PULSE 58 09/25/2024 13:45:27 [facility] [place] [facility] RESPIRATION 18 09/25/2024 13:45:27 [facility] [place] [facility] SYSTOLIC BLOOD PRESSURE 112 08/02/20 14:39:25 [facility]PUBLIC DIASTOLIC BLOOD PRESSURE 66 024 14:39:25 REPUBLIC PULSE OXIMETRY 96 08/02/2024 14:39:25 REPUBLIC WEIGHT 08/02/2024 14:39:25 REPUBLIC TEMPERATURE 97.6 08/02/2024 14:39:25 [facility]PUBLIC PULSE 60 08/02/2024 14:39:25 REPUBLIC SYSTOLIC BLOOD PRESSURE 104 04/23/20 08:34:09 REPUBLIC DIASTOLIC BLOOD PRESSURE 62 024 08:34:09 REPUBLIC PULSE OXIMETRY 97 04/23/2024 08:34:09 [facility]PUBL[facility] WEIGHT 260 04/23/2024 08:34:09 REPUBLIC BMI 35 kg/m2 04/23/2024 08:34:09 REPUBLIC PAIN 1 04/23/2024 08:34:09 [facility]PUBLIC HEIGHT 72 04/23/2024 08:34:09 REPUBLIC TEMPERATURE 97.1 04/23/2024 08:34:09 REPUBLIC PULSE 60 04/23/2024 08:34:09 REPUBLIC RESPIRATION 18 04/23/2024 08:34:09 REPUBLIC Encounters Combined list of: 1) Encounters from Department of Veterans Affairs facilities going backup to the last 18 months, not all CT inpatient encounters are included; 2) Encounters from the Department of [facility] facilities going backup to 280 months. Location Location Details Encounter Type Encounter Number Reason For Visit Attending Provider ADM Date DC Date Status Disposition Source [facility] OFFICE O/P EST LOW 20-29 MIN [id number] Diagnos is: ICD-10- CM L60.0 Ingrowi ng EIMLI Mckinney ES F 08/23 [place] [facility] EYE EXAM&TX ESTAB PT 1/>VST [id number] Diagnos is: ICD-10- CM H40.013 Open angle with borderl ine finding s, low risk, bilater al KISHA,NICOLE Y J 08/24 [facility] En[facility] [id number] 08/24 [facility] FIT SPECTACLES MULTIFOCAL [id number] Diagnos is: ICD-10- CM Z46.0 Encount er for fit/adj st of spectac les and contact lenses RAUDEL GEORGE 08/25 [facility] En[facility] [id number] 08/25 [facility] [place] [place] CLEAN/INSP ECT DARNELL PART DENT [id number] Diagnos is: ICD-10- CM K03.6 Deposit s [accret ions] on teeth BRIAN,CHRISTOPHER CHAS K 08/26 [facility] [place] LIMITED OCCLUSAL ADJUSTMENT [id number] Diagnos is: ICD-10- CM K03.6 Deposit s [accret ions] on teeth HOHREITER, VINCENT 08/26 [facility] En[facility] [id number] 09/08 [facility] En[facility] [id number] 09/09 [facility] En[facility] [id number] 09/28 [facility] [place] [facility] [place] OFF/OP EST MAY X REQ PHY/QHP [id number] Diagnos is: ICD-10- CM Z23 Encount er for immuniz atZEENAT Lizarraga 09/29 [place] Outpatient Encounter [id number] 10/14 [place] [facility] Outpatient Encounter [id number] 10/19 [facility] [place] [facility] [place] Outpatient Encounter [id number] 10/25 [facility] [place] [facility] [place] OFF[place] O/P EST HI 40-54 MIN [id number] Diagnos is: ICD-10- CM S70.01X S Contusi on of right hip, sequela ZHENG,VICT ORIA J 10/27 [place] [facility] Outpatient Encounter [id number] 10/27 [facility] Outpatient Encounter [id number] 11/10 [facility] [place] [facility] [place] OFF[place] O/P EST LOW 20 MIN [id number] Diagnos is: ICD-10- CM L60.0 Ingrowi ng nail WILI,EMILI ES F 11/16 [facility] [place] [id number] Diagnos is: ICD-10- CM 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 and 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 SESAR Agrawal P 11/21 [place] [facility] Outpatient Encounter [id number] 11/21 [facility] [place] [facility] Outpatient Encounter [id number] 12/13 [facility] Outpatient Encounter [id number] 12/15 [facility] [place] [facility] [place] DIABETIC CUSTOM MOLDED SHOE [id number] Diagnos is: ICD-10- CM E11.51 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 RICHA Chen 01/02 [place] OFF/OP EST MAY X REQ PHY/QHP [id number] Diagnos is: ICD-10- CM R68.89 Other general symptom s and signs LISA,ER IC K 02/05 [place] [facility] Outpatient Encounter [id number] 02/05 [facility] [place] [facility] [place] OFFICE O/P EST MOD 30 MIN [id number] Diagnos is: ICD-10- CM L60.0 Ingrowi ng EMILI Mckinney ES F 02/07 [place] [facility] Outpatient Encounter [id number] 02/08 [facility] [place] [facility] [place] OFFICE O/P EST MOD 30 MIN [id number] Diagnos is: ICD-10- CM I50.9 Heart failure , unspeci fied MEJIA,DA VID A 04/23 [place] [facility] INTRM OPH EXAM EST PATIENT [id number] 1. Diagnos is: ICD-10- CM H52.4 Presbyo NICOLE Lopez J 04/24 [facility] FIT SPECTACLES MULTIFOCAL [id number] Diagnos is: ICD-10- CM Z46.0 Encount er for fit/adj st of spectac les and contact lenses NICOLE BEARD Y J 04/24 [facility] OT EVAL LOW COMPLEX 30 MIN [id number] 1. 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 43 Diagnos is: ICD-10- CM L60.3 Nail dystrop hy EMILI RASHEED ES F 05/16 [place] [facility] En[facility] [id number] 06/26 [facility] En[facility] [id number] 06/27 [facility] Encounter [id number] [facility] TOPICAL FLUORIDE VARNISH [id number] 1. Diagnos is: ICD-10- CM K03.6 Deposit s [accret ions] on teeth BRIAN,CHRISTOPHER DOHERTY K 07/24 [facility] [place] [facility] SELF CARE MNGMENT TRAINING [id number] Diagnos is: ICD-10- CM M25.569 Pain in unspeci fied knee STAN ORDOÑEZ 07/27 [place] [facility] Outpatient Encounter [id number] 1.08/02 [facility] [place] [facility] OFFICE O/P EST MOD 30 MIN [id number] 1BY. 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 ADMN SARSCOV2 VACC 1 DOSE [id number] MICHELE MEJIA VID A 08/02 [facility] [place] [facility] THERAPEUTI C EXERCISES [id number] 1BY. 88 Diagnos is: ICD-10- CM M25.569 Pain in unspeci fied knee STAN ORDOÑEZ 08/03 [facility] PSYTX W PT 45 MINUTES [id number] 1BY. 34 Diagnos is: ICD-10- CM F43.12 Post-tr aumatic stress disorde r, chronic VINOCOUR,J DEBRAELIASMaritza HIDALGO 08/06 [facility] [place] THERAPEUTI C EXERCISES [id number] 1BY. 20 Diagnos is: ICD-10- CM M25.569 Pain in unspeci fied knee STAN ORDOÑEZ 08/06 [facility] [place] THERAPEUTI C EXERCISES [id number] Diagnos is: ICD-10- CM M25.569 Pain in unspeci fied knee STAN ORDOÑEZ 08/10 [facility] [place] [facility] [place] [facility] Outpatient Encounter [id number] 1.08/16 [facility] [place] [facility] [place] THERAPEUTI C EXERCISES [id number] Diagnos is: ICD-10- CM M25.569 Pain in unspeci fied knee STAN ORDOÑEZ 08[place] THERAPEUT[place] EXERCISES [id number] Diagnos is: ICD-10- CM M25.569 Pain in unspeci fied knee STAN ORDOÑEZ 08/23 [facility] [place] [facility] [place] [facility] COMPRE OPH EXAM EST PT 1/ [id number] 1. Diagnos is: ICD-10- CM E11.9 Type 2 diabete s mellitu s without complic ations NCIOLE BEARD 08/28 [facility] [place] [facility] [place] [facility] FIT SPECTACLES MONOFOCAL [id number] Diagnos is: ICD-10- CM Z46.0 Encount er for fit/adj st of spectac les and contact lenses NICOLE BEARD 08/28 [facility] [place] [facility] [place] THERAPEUTI C EXERCISES [id number] Diagnos is: ICD-10- CM M25.569 Pain in unspeci fied knee STAN ORDOÑEZ 09/03 [facility] [place] PSYTX W PT 45 MINUTES [id number] Diagnos is: ICD-10- CM F43.12 Post-tr aumatic stress disorde r, chronic VINOCOUR,J ROSEANN HIDALGO 09/03 [place] [facility] OFFICE O/P NEW MOD 45 MIN [id number] Diagnos is: ICD-10- CM M54.2 Cervica lgia CHACHO,SANCHEZ 09/12 [facility] [place] [facility] THERAPEUTI C EXERCISES [id number] Diagnos is: ICD-10- CM M25.569 Pain in unspeci fied knee STAN ORDOÑEZ 09/13 [place] [facility] Outpatient Encounter [id number] 09/19 [facility] [place] [facility] MANUAL THERAPY 1/> REGIONS [id number] 1BY. 50 Diagnos is: ICD-10- CM M25.569 Pain in unspeci fied knee STAN ORDOÑEZ 09/21 [facility] [place] [facility] MANUAL THERAPY 1/> REGIONS [id number] 1. Diagnos is: ICD-10- CM M54.2 Cervica LAURA Teixeira 09/21 [facility] [place] OFFICE O/P EST SF 10 MIN [id number] Diagnos is: ICD-10- CM M25.511 Pain in right shoulde r TRISTEN,CHR ISTOPHER M 09/24 [facility] [place] [place] MANUAL THERAPY 1/> REGIONS [id number] Diagnos is: ICD-10- CM M54.2 Cervica LAURA Teixeira 09/25 [facility] [place] [facility] OFF/OP EST MAY X REQ PHY/QHP [id number] Diagnos is: ICD-10- CM Z71.89 Other specifi ed career placement services counselor Maritza Amaya 09/25 [facility] [place] OFF[facility] O/P EST LOW 20 MIN [id number] Diagnos is: ICD-10- CM S90.31X A Contusi on of right foot, initial encount MARINO Joe 09/25 [facility] [place] [place] OFFICE O/P EST LOW 20 MIN [id number] Diagnos is: ICD-10- CM L60.0 Ingrowi ng nail ROSS,CHARL ES F 09/26 [place] [facility] OFF[facility] O/P EST SF 10 MIN 56195-4.63 1. Diagnos is: ICD-10- CM M79.641 Pain in right hand LAURA FLOR RA 10/03 [facility] [place] [place] THERAPEUTI C EXERCISES [id number] Diagnos is: ICD-10- CM M25.569 Pain in unspeci fied knee STAN ORDOÑEZ 10/09 [place] [facility] INFRARED THERAPY [id number] Diagnos is: ICD-10- CM M54.2 Cervica lgia CATIAUNYA,CHR ISTOPHER M 10/10 [facility] En[facility] [id number] 10/15 [facility] MANUAL THERAPY 1/> REGIONS [id number] Diagnos is: ICD-10- CM M54.2 Cervica lgia LAURA FLOR RA 10/16 [facility] En[facility] [id number] 10/19 [facility] [place] [place] [facility] MNG[facility] TRAINING [id number] Diagnos is: ICD-10- CM M25.569 Pain in unspeci fied knee STAN ORDOÑEZ 10/22 [facility] [place] [facility] ACUPUNCT W/O STIMUL ADDL 15M [id number] Diagnos is: ICD-10- CM F43.12 Post-tr aumatic stress disorde r, chronic GAUNYA,CHR ISTOPHER M 10/25 [facility] En[facility] [id number] 11/06 [facility] ACUP 1/> WO ESTIM 1ST 15 MIN [id number] Diagnos is: ICD-10- CM F43.12 Post-tr aumatic stress disorde r, chronic GAUNYA,CHR ISTOPHER M 11/15 [facility] En[facility] [id number]/[id number] [facility] En[facility] [id number] 12/05 [facility] En[facility] [id number] 12/07 [facility] [place] [facility] OFFICE O/P EST HI 40 MIN [id number] Diagnos is: ICD-10- CM N18.32 Chronic kidney disease , stage 3b MICHELE MEJIA 12/10 [facility] [place] [facility] Out[facility] Encounter [id number] 12/10 [facility] [place] ACUP 1/ W/O ESTIM EA ADD 15 [id number] Diagnos is: ICD-10- CM M25.551 [facility] in right [facility] [place] [facility] [place] PS[place] W PT 45 MINUTES [id number] Diagnos is: ICD-10- CM F43.12 Post-tr aumatic stress disorde r, chronic VINOCOUR,J OSHUA GWEN 12/31 [place] [facility] [place] [facility] Outpatient Encounter [id number] [facility] [place] [facility] [place] PSYTX W PT 45 MINUTES [id number] Diagnos is: ICD-10- CM F43.12 Post-tr aumatic stress disorde r, chronic FABIAN,J EFFREY R 01/16 [place] [facility] [place] [facility] Outpatient Encounter [id number] 01/16 [facility] [place] [facility] [place] [facility] INFRARED THERAPY [id number] Diagnos is: ICD-10- CM M54.2 Cervica lgia [facility] 01/22 [facility] [place] [facility] [place] [facility] CLEAN/INSP ECT DARNELL PART DENT [id number] Diagnos is: ICD-10- CM K03.6 Deposit s [accret ions] on teeth BRIAN,CHRISTOPHER CHAS K 01/23 [facility] [place] [place] [facility] DENTAL BITEWING THREE IMAGES [id number] Diagnos is: ICD-10- CM K08.434 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, class IV ÁNGELA POTTS 01/23 [facility] [place] [facility] [place] O/P EST MOD 30 MIN [id number] Diagnos is: ICD-10- CM L60.3 Nail dystrop hy WILI,CHARL ES F 01/31 [facility] [place] INFRARED THERAPY [id number] Diagnos is: ICD-10- CM M54.2 Cervica lgia GAUNYA,CHR ISTOPHER M 02/06 [facility] [place] [facility] [place] OFF/OP EST MAY X REQ PHY/QHP [id number] Diagnos is: ICD-10- CM Z71.89 Other specifi ed career placement services counselor MARIA Valladares 02/12 [facility] Social History Combined list of available smoking, tobacco, and other social history from [facility] and [facility] facilities. Social History Type Response Date Comment Source [facility] 12/10/2024 [facility] [place] [facility] 12/10/2024 [facility] [place] [place] [facility] History of tobacco use [place]-TO[facility]ACCO FORMER USER 10/27/2023 [facility] [employer] [place] History of tobacco use [place]-TO[place] FORMER USER 06/18/2022 REPUBLIC History of tobacco use [place]-TO[place]ACCO FORMER USER 03/20/2021 REPUBLIC History of tobacco use [place]-TOBACCO QUIT 15 YRS OR MORE 05/25/2018 REPUBLIC History of tobacco use CURRENT SMOKER 05/10/2018 REPUBLIC History of tobacco use QUIT TOBACCO USE > 7 YEARS AGO 10/28/2016 stopped smoking 20 years ago REPUBLIC History of tobacco use QUIT TOBACCO USE > 7 YEARS AGO 10/30/2015 REPUBLIC Plan of Care List of future care activities from [facility] Affairs facilities. Additional future care activities may be listed in the Assessment and Plan section. Date/Time Care Activity Care Activity Detail Facili ty 03/07/2025 AMBULATORY - PSYCHIATRY AMBULATORY - PSYC [facility]
--- OUTSIDE RECORDS SUMMARY | 2025-02-13 11:28 | XMS_ITS | Encounter Summary ---
Author Name [facility] [place] Organization [facility] [place] Address [address] [place] [address] Care Team Providers Care [employer] Installer Name Role Phone FERMIN MEJIA Primary Care [...] Mendiola's Name Patient's Relationship to Policy Mendiola [facility] MEDICARE ADVANTAGE [facility] ([facility]) Jul 31, 2017 [id number] STEVEN ALEXANDRE JR S PATIENT MEDICARE (WN) MEDICARE (M) PART A Mar 31, 2012 PART A [id number] STEVEN ALEXANDRE JR S PATIENT MEDICARE (WNR) MEDICARE (M) PART B Mar 31, 2012 PART B [id number] STEVEN ALEXANDRE JR S PATIENT MEDICARE (WNR) MEDICARE (M) PART A Mar 31, 2012 PART A [id number] STEVEN ALEXANDRE JR S PATIENT MEDICARE (WN) MEDICARE (M) PART B Mar 31, 2012 PART B [id number] STEVEN ALEXANDRE JR PATIENT MEDICARE (WNR) MEDICARE (M) PART A Mar 31, 2012 PART A [id number] STEVEN ALEXANDRE JR S PATIENT MEDICARE (WNR) MEDICARE (M) PART B Mar 31, 2012 PART B [id number] STEVEN ALEXANDRE JR S PATIENT MEDICARE (WNR) MEDICARE (M) PART A Mar 31, 2012 PART A [id number] [phone] STEVEN ALEXANDRE JR S PATIENT MEDICARE (WNR) MEDICARE (M) PART B Mar 31, 2012 PART B [id number] [phone] STEVEN ALEXANDRE JR S PATIENT MEDICARE (WNR) MEDICARE (M) PART A Mar 31, 2012 PART A [id number] STEVEN ALEXANDRE JR PATIENT MEDICARE (WNR) MEDICARE (M) PART B Mar 31, 2012 PART B [id number] STEVEN ALEXANDRE JR PATIENT MEDICARE PART D (WNR) PRESCRIPT ION PART D May 31, 2012 PART D [id number] [phone] STEVEN ALEXANDRE JR PATIENT MEDICARE PART D (WNR) PRESCRIPT ION PART D May 31, 2012 PART D [id number] [phone] STEVEN ALEXANDRE JR PATIENT Selected Encounter This section includes the information on record at [place] for the Encounter. Date/Time Encounter Type Encounter Description Reason Provider Source Sep 25, 2024 01:00 PM MANUAL THERAPY 1/> [facility] PEG DRIVER ICD-10-CM M54.2 CervicalMERVIN Menon [facility] Encounter Template Text not used by [place] Assessments - Encounter Diagnoses This section includes the primary and secondary diagnoses documented for the Encounter. Date/Time Primary/Secondary Diagnosis Diagnosis Name Provider Source Sep 25, 2024 01:17 PM PRIMARY Gary FLORMERVIN [place] [facility] [facility] Plan of Treatment: Future Appointments (+ 6 months) and Future Tests (+/- 45 days) The Plan of Treatment section includes future care activities for the patient from all [place] treatmentfacilities. This section includes future appointments and future orders which are active, pending or scheduled. Future Appointments This section includes appointments that were scheduled to occur 6 months from the date of the Encounter, up to a maximum of 20 appointments. The data comes from all [place] treatment [facility]. Appointment Date/Time Appointment Type Appointme nt Facility Name Sep 26, 2024 08:30 AM AMBULATORY - MEDICINE [facility] Oct 03, 2024 09:30 AM AMBULATORY - MEDICINE [facility] [place] [facility] Oct 09, 2024 07:30 AM AMBULATORY - REHAB [facility]IC[facility] Oct 10, 2024 09:30 AM AMBULATORY - MEDICINE [facility] [place] [facility] Oct 16, 2024 08:30 AM AMBULATORY - MEDICINE [facility] [place] [facility] Oct 22, 2024 02:00 [facility] Oct 25, 2024 09:00 AM AM[facility]ULATORY [facility] MEDICINE [facility] [place] [facility] Nov 15, 2024 09:15 AM AMBULATORY - MEDICINE [facility] [place] [facility] Nov 29, 2024 08:45 AM AMBULATORY - MEDICINE [facility] [facility] Dec 10, 2024 02:30 PM [facility] Dec 27, 2024 08:45 AM [facility]UL[facility] MEDICINE [facility] [place] [facility] Dec 31, 2024 02:00 PM AMBULATORY - PSYCHIATRY [facility] Jan 10, 2025 03:00 PM AMBULATORY - MEDICINE [facility] [facility] Jan 16, 2025 11:30 AM AMBULATORY - PSYCHIATRY [facility] Jan 22, 2025 11:00 AM AMBULATORY - MEDICINE [facility] [place] [facility] Jan 23, 2025 08:30 AM AMBULATORY - NONE [facility] [place] [facility] Jan 23, 2025 09:00 AM AMBULATORY - NONE [facility] [place] [facility] Jan 31, 2025 08:30 AM AM[facility]ULATORY - MEDICINE [facility] Feb 06, 2025 10:30 AM AMBULATORY - MEDICINE [facility] [place] [facility] Feb 12, 2025 08:00 AM AMBULATORY - PSYCHIATRY [facility] Active, [...] of theEncounter. The data comes from all [place] treatment facilities. Test Date/Time Test Type Test Details Facility Name Aug 17, 2024 12:00 AM Laboratory - Chemi stry Order MICROALBUMIN CREATININE RATIO PANEL URINE (RANDOM) [facility] Aug 17, 2024 12:00 AM Laboratory - Chemi stry Order PSA BLOOD (SST-SERUM) [facility] Aug 17, 2024 12:00 AM Laboratory - Chemi stry Order VITAMIN D (25-OH) BLOOD (SST-SERUM) [facility] Aug 17, 2024 12:00 AM Laboratory - Chemi stry Order PT & INR (COUMADIN) BLOOD (BLUE-PLASMA) [facility] Aug 17, 2024 12:00 AM Laboratory - Chemi stry Order TSH BLOOD (SST-SERUM) [facility] Aug 17, 2024 12:00 AM Laboratory - Chemi stry Order HEMOGLOBIN A1C PANEL BLOOD (LAV-BLOOD) [facility] Aug 17, 2024 12:00 AM Laboratory - Chemi stry Order CBC AND DIFF (AUTO) BLOOD (LAV-BLOOD) [facility] Aug 17, 2024 12:00 AM Laboratory - Chemi stry Order MAGNESIUM BLOOD (SST-SERUM) [facility] Aug 17, 2024 12:00 AM Laboratory - Chemi stry Order LIPID PANEL FASTING BLOOD (SST-SERUM) [facility] Aug 17, 2024 12:00 AM Laboratory - Chemi stry Order LIVER FUNCTION BLOOD (SST-SERUM) [facility] Aug 17, 2024 12:00 AM Laboratory - Chemi stry Order CALCIUM BLOOD (SST-SERUM) [facility] Aug 17, 2024 12:00 AM Laboratory - Chemi stry Order BASIC METABOLIC PANEL (fasting) BLOOD (SST-SERUM) [facility] Aug 17, 2024 12:00 AM Laboratory - Chemi stry Order VITAMIN B12 BLOOD (SST-SERUM) [facility] Vital Signs: All taken on the encounter date This section contains inpatient and outpatient Vital Signs collected on the date of the Encounter. Date/Time Temperature Pulse Blood Pressure Respiratory Rate SP02 Pain Height Weight Body Mass Index Source Sep 25, 2024 01:45 PM 98 58 104/66 18 94 1 269 37 [facility] Social History: Smoking Status (Most current) and Tobacco Use (All prior to encounter date) This section includes the most current, and the historical, smoking and tobacco- related health factors from the [place] facility where the Encounter took place. Current Smoking Status This section includes the most current smoking, or tobacco-related health factor, from the [place] facility where the Encounter took place. Date/Time Current Smoking Status Comment Facil ity Oct 27, 2023 10:10 AM DC-TOBACCO QUIT 15 YRS OR MORE [facility] Tobacco Use History This section includes a history of the smoking, or tobacco-related health factors, that were collected on or before the date of the Encounter. The data comes from the [place] facility where the Encounter took place. Date/Time Smoking Status/Tobacco Use Comment F acility Oct 27, 2023 10:10 AM DC-TOBACCO QUIT 15 YRS OR MORE [facility] Encounter Notes: All associated encounter notes This section contains the clinical notes associated to the Encounter. Date/Time Encounter Note(s) Provider Source Sep 25, 2024 12:47 PM CHIROPRACTIC NOTE: LOCAL TITLE: CHIROPRACTOR PROGRESS NOTE STANDARD TITLE: CHIROPRACTIC NOTE DATE OF NOTE: SEP 25, 2024@12:47 ENTRY DATE: SEP 25, 2024@12:47:51 AUTHOR: MERVIN FLOR COSIGNER: URGENCY: STATUS: COMPLETED [...] arthroplasty January 13, 2024 Patient [facility] and reports that he wore a cervical collar for a few hours which gave him some relief. He did not use ice or heat, but he did some light stretching. ======== Patient is in PT [facility] for a knee problem. He describes the pain as intermittent Vet rates the pain average on the NPRS 4/10 Onset: last year after he fell in [employer] parking lot. He pulled a shopping care that was caught . He fell and landed on his back and his head hit last. About 3-4 days later he went to [facility]. X-rays taken but not found in [place] records. He was sent to a specialist [...] cardiac problems. Prior treatment: x-rays taken at [facility]; Gabapentin Prior intensive care unit registered nurse: None Exercise/Activities: daily he squeezes a ball [...] Supine gluteal stretching as per palpation Objectives 09/25/24: Hypertonic tender Cervical paraspinal mm CMT AT cervical Treatment: active/corrective Manual therapy 8 min cervical [...] and pain modulation. Plan: trial Chiro Visit 3 F/U 4 visits Seek urgent care as needed. CMT: chiropractic manipulative therapy SMT: Spinal Manipulative Therapy F/D: Flexion Distraction MFR: Myofascial Release S-I: Sacroiliac MFTP: Myofascial Trigger Point NRS: Numeric Rating Scale N/T: Numbness/Tingling PIR: Post isometric relaxation /es/ MERVIN FLOR [facility] CHIROPRACTOR Signed: 09/25/2024 13:17 MERVIN FLOR [facility]
--- OUTSIDE RECORDS SUMMARY | 2025-02-13 11:28 | XMS_ITS | Encounter Summary ---
Author Name [facility] [place] [facility] [place] [place] [facility] [place] Address [address] [place] [address] Care Team Providers Care Preschool Assistant Teacher Name Role Phone FERMIN MEJIA Primary Care [...] Name Patient's Relationship to Policy Mendiola [facility] ([facility]) MEDICARE ADVANTAGE [facility] ([facility]) Jul 31, 2017 [id number] STEVEN ALEXANDRE JR S PATIENT MEDICARE ([facility]) MEDICARE (M) PART A Mar 31, 2012 PART A [id number] VANDA ALEXANDRE JRLE S PATIENT MEDICARE (WNR) MEDICARE (M) PART B Mar 31, 2012 PART B [id number] BALDOMERO HORNESTEVEN S PATIENT MEDICARE (WNR) MEDICARE (M) PART A Mar 31, 2012 PART A [id number] STEVEN ALEXANDRE JR S PATIENT MEDICARE ([facility]) MEDICARE (M) PART B Mar 31, 2012 PART B [id number] STEVEN ALEXANDRE JR PATIENT MEDICARE (WNR) MEDICARE (M) PART A Mar 31, 2012 PART A [id number] [phone] STEVEN ALEXANDRE JR S PATIENT MEDICARE (WNR) MEDICARE (M) PART B Mar 31, 2012 PART B [id number] [phone] STEVEN ALEXANDRE JR S PATIENT MEDICARE (WNR) MEDICARE (M) PART A Mar 31, 2012 PART A [id number] STEVEN ALEXANDRE JR PATIENT MEDICARE (WNR) MEDICARE (M) PART B Mar 31, 2012 PART B [id number] [phone] STEVEN ALEXANDRE JR S PATIENT MEDICARE (WNR) MEDICARE (M) PART A Mar 31, 2012 PART A [id number] STEVEN ALEXANDRE JR PATIENT MEDICARE (WNR) MEDICARE (M) PART B Mar 31, 2012 PART B [id number] STEVEN ALEXANDRE JR PATIENT MEDICARE PART D (WNR) PRESCRIPT ION PART D May 31, 2012 PART D [id number] [phone] STEVEN ALEXANDRE JR PATIENT MEDICARE PART D (WNR) PRESCRIPT ION PART D May 31, 2012 PART D [id number] STEVEN ALEXANDRE JR PATIENT Selected Encounter This section includes the information on record at [place] for the Encounter. Date/Time Encounter Type Encounter Description Reason Provider Source Aug 02, 2024 02:30 PM OFFICE O/P EST MOD 30 MIN PRIMARY CARE/MEDICINE ICD-10-CM I50.42 Chronic combined systolic and diastolic hrt fail FERMIN MEJIA Leonardo Encounter Template Text not used by [place] Assessments - Encounter Diagnoses This section includes the primary and secondary diagnoses documented for the Encounter. Date/Time Primary/Secondary Diagnosis Diagnosis Name Provider Source Aug 07, 2024 05:47 PM PRIMARY Chronic combined systolic and diastolic hrt fail FERMIN MEJIA Aug 07, 2024 05:47 PM SECONDARY Chronic kidney disease, stage 3b FERMIN MEJIA Aug 07, 2024 05:47 PM SECONDARY Essential (primary) hypertension FERMIN MEJIA Aug 07, 2024 05:47 PM SECONDARY Gout, unspecified MEJIAFERMIN Vega [facility] Aug 07, 2024 05:47 PM SECONDARY Other asthma FERMIN MEJIA [facility] Aug 07, 2024 05:47 PM SECONDARY Sleep apnea, unspecified FERMIN MEJIA [facility] Aug 07, 2024 05:47 PM SECONDARY Type 2 diabetes mellitus without complications FERMIN MEJIA [facility] Plan of Treatment: Future Appointments (+ 6 months) and Future Tests (+/- 45 days) The Plan of Treatment section includes future care activities for the [facility] This section includes future appointments and future orders which are active, pending or scheduled. Future Appointments This section includes appointments that were scheduled to occur 6 months from the date of the Encounter, up to a maximum of 20 appointments. The data comes from all [facility]. Appointment Date/Time Appointment Type Appointme nt Facility Name Aug 03, 2024 09:00 AM AMBULATORY - REHAB [facility] Aug 06, 2024 10:00 AM AMBULATORY - PSYCHIATRY [facility] Aug 06, 2024 03:30 PM AMBULATORY - REHAB [facility] Aug 10, 2024 10:00 AM AMBULATORY - REHAB [facility] Aug 16, 2024 07:30 AM AMBULATORY - REHAB [facility] Aug 21, 2024 09:30 [facility] 07:30 AM AM[facility]ULATORY - REHAB [facility] Aug 28, 2024 08:30 AM AMBULATORY - MEDICINE [facility] [place] [facility] Sep 03, 2024 07:30 AM AMBULATORY - REHAB [facility]ICIN [facility] Sep 03, 2024 09:00 AM AMBULATORY - PSYCHIATRY [facility] Sep 12, 2024 10:00 AM AMBULATORY - MEDICINE [facility] [place] [facility] Sep 13, 2024 07:30 AM AMBULATORY - REHAB MEDICIN [facility] Sep 19, 2024 09:00 AM AMBULATORY - MEDICINE [facility] [place] [facility] Sep 21, 2024 07:30 AM AMBULATORY - REHAB MEDICIN E [place] Sep 21, 2024 09:30 AM AMBULATORY - MEDICINE [facility] [place] [facility] Sep 24, 2024 02:00 PM AMBULATORY - MEDICINE [facility] [place] [facility] Sep 25, 2024 01:00 PM AMBULATORY - MEDICINE [place] [facility] Sep 25, 2024 01:30 PM AMBULATORY - MEDICINE [place] [facility] Sep 25, 2024 02:00 PM AMBULATORY - MEDICINE [place] [facility] Sep 26, 2024 08:30 AM AMBULATORY - MEDICINE [place] Active, Pending, and Scheduled Orders This section includes a listing of several types of active, pending, and scheduled orders, including clinic medications orders, diagnostic test orders, procedure orders and consult orders; where the start date of the order is 45 days before the date of the Encounter or 45 days after the date of theEncounter. The data comes from all [place] treatment facilities. Test Date/Time Test Type Test Details Facility Name Aug 17, 2024 12:00 AM Laboratory - Chemi stry Order PSA BLOOD (SST-SERUM) [facility] Aug 17, 2024 12:00 AM Laboratory - Chemi stry Order MICROALBUMIN CREATININE RATIO PANEL URINE (RANDOM) [facility] Aug 17, 2024 12:00 AM Laboratory - Chemi stry Order VITAMIN D (25-OH) BLOOD (SST-SERUM) [facility] Aug 17, [...] Order CALCIUM BLOOD (SST-SERUM) [facility] Vital Signs: All taken on the encounter date This section contains inpatient and outpatient Vital Signs collected on the date of the Encounter. Date/Time Temperature Pulse Blood Pressure Respiratory Rate SP02 Pain Height Weight Body Mass Index Source Aug 02, 2024 02:39 PM 97.6 60 112/66 96 [facility] [place] Social History: Smoking Status (Most current) and Tobacco Use (All prior to encounter date) This section includes the most current, and the historical, smoking and tobacco- related health factors from the [place] facility where the Encounter took place. Current Smoking Status This section includes the most current smoking, or tobacco-related health factor, from the [place] facility where the Encounter took place. Date/Time Current Smoking Status Comment Facil ity Jun 18, 2022 09:00 AM VA-TOBACCO QUIT 15 YRS OR MORE [facility] Tobacco Use History This section includes a history of the smoking, or tobacco-related health factors, that were collected on or before the date of the Encounter. The data comes from the [place] facility where the Encounter took place. Date/Time Smoking Status/Tobacco Use Comment F acility Jun 18, 2022 09:00 AM VA-TOBACCO QUIT 15 YRS OR MORE [facility] March 20, 2021 02:00 PM VA-TOBACCO FORMER USER [facility] March 20, 2021 02:00 PM VA-TOBACCO QUIT 15 YRS OR MORE [facility] May 25, 2018 08:15 AM VA-TOBACCO FORMER USER [facility] May 25, 2018 08:15 AM VA-TOBACCO QUIT 15 YRS OR MORE [facility] May 10, 2018 04:32 PM CURRENT SMOKER [facility] Oct 28, 2016 12:56 PM QUIT TOBACCO USE > 7 YEARS AGO stopped smoking 20 years ago [facility] Oct 30, 2015 12:58 PM QUIT TOBACCO USE > 7 YEARS AGO [facility] Radiology Reports: +/- 30 days of the [...] the Encounter. The data comes from all [place] treatment facilities. Date/Time Radiology Report Provider Source Aug 07, 2024 08:23 AM CHEST (2 VIEWS): CLAUDIA ALEXANDRE JR [id number] -[id number] M Exm Date: AUG 07, 2024@08:23 Req Phys: FERMIN MEJIA Loc: CWM/SO/PACT 1 CHILD WELFARE CASEWORKER (Req'g Loc) Img Loc: [facility]/BUILDING 1 Service: [place] [address] (Case [id number] COMPLETE) CHEST (2 VIEWS) (RAD Detailed) CPT:83255 Reason for Study: Cough Clinical History: HFrEF, CAD, SILVIA, DM2, HTN Report Status: Verified Date Reported: AUG 07, 2024 Date Verified: AUG 07, 2024 Rent And Housing Investigator E-Sig:/CLINT/DARRELL JONES JR Report: Study: PA and lateral [...] Primary Interpreting Staff: DARRELL JONES JR, Radiologist (Rent And Housing Investigator) /DARRELL SMITH JR [facility] Encounter Notes: All associated encounter notes This section contains the clinical notes associated to the Encounter. Date/Time Encounter Note(s) Provider Source Aug 07, 2024 05:50 PM ADDENDUM: LOCAL TITLE: Addendum STANDARD TITLE: ADDENDUM DATE OF NOTE: AUG 07, 2024@17:50:41 ENTRY DATE: AUG 07, 2024@17:50:41 AUTHOR: FERMIN MEJIA EXP COSIGNER: URGENCY: STATUS: COMPLETED Team: Please contact the patient and requested he come for fasting labs which are overdue. Thank you. /clint/ FERMIN MEJIA NP NURSE PRACTITIONER Signed: 08/07/2024 17:50 Receipt Acknowledged By: 08/15/2024 10:45 /es/ PATTIE HUERTA LPN LPN 08/08/2024 11:38 /es/ GAURANG CHAPPELL RN REGISTERED NURSE ======== --- Original Document --- 08/02/24 NURSE PRACTITIONER OUTPATIENT NOTE: PRIMARY CARE VISIT CLAUDIA ALEXANDRE, is a 69 yo BLACK [place] MALE who [facility] at the [facility]. TYPE OF VISIT: Face to face 69-year-old gentleman with an extensive past medical history including combined systolic and diastolic CHF, CKD stage IIIb, anemia of chronic disease, DM2, gout, HTN, HLD, SILVIA on BiPAP dependent on overnight oxygen, mechanical heart valve, and paroxysmal atrial fibrillation presented to the outpatient clinic in regular follow-up. He is comanaged with a community PCP. He started Ozempic 5 months ago; dose now at 2 mg but he is only taking 1 mg. Today he would like to look into a possible heart transplant. Recent labs and diagnostic studies were reviewed with the [place]. All medications were reconciled during this visit. HEALTHCARE PROVIDERS: Community PCP: Josiah Akers at [facility] Pulmonology: Dr. Lala [facility] Cardiology: OSWALDO Elliott Ortho: ARABELLA General surgery: OSWALDO Nephrology: Dr. Ham Social Hx: [place] is and lives with his . He stopped smoking in 1998. No alcohol or MJ. 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 No regular exercise due to baseline poor functional status. HISTORY: PERIOD OF SERVICE - [employer] FROM Apr TO Dec COMBAT SERVICE INDICATED: No MEDICAL HISTORY Active Problem Chronic combined systolic and diast 04/23/2024 FERMIN MEJIA Outside providers R69. 04/23/2024 FERMIN MEJIA Contusion S70.01XS 04/01/2023 RIZWANA MATRINES Contusion of right shoulder S40.011 04/01/2023 RIZWANA MARTINES CHF - Congestive Heart Failure (SCT 04/23/2024 RIZWANA MARTINES Anaemia due to blood loss D62. 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 EXAMINATION General: Well-appearing [place] in no obvious distress. Mental Status: Alert and oriented x4. Head: Normocephalic. Eyes: PERRLA. EOMI. Anicteric sclerae. ENT: Moist oral mucosa. Posterior pharynx unremarkable Neck: Supple. No JVD. No LAD. No bruit. Lungs: CTA. Normal chest excursion. Eupneic respirations. CV: Heart tones S1, S2. RRR. No M/G/R. No peripheral edema GI: Abdomen is soft and nontender. No palpable mass. : No CVA tenderness. Ext: No cyanosis or clubbing. No gross deformities. Neuro: CN II through XII grossly intact. Normal speech. Normal gait. Integument: Skin warm and dry. No rashes or lesions on visible areas. Psych: Normal mood and affect. Normal judgment. ALLERGIES: ========= PENICILLIN, SPIRONOLACTONE >> HEALTH MAINTENANCE PREVENTIVE MEDICINE GOALS Info Only: [facility] Video Connect Capable DUE NOW Advance Directive Screen AD Apr 13 Hemoglobin A1C Oct 11 Home Telehealth (CCHT) Referral DUE NOW Influenza Immunization DUE NOW Medication Reconciliation DUE NOW COVID-19 Immunization DUE NOW Eye Care At-Risk Screen Aug 24 (Optional) Whole Health Documentation DUE NOW ASSESSMENT/PLAN: Active problems - Computerized Problem List is the source for the following: CHF - Congestive Heart Failure ([facility] [id number]): HFrEF followed by [facility] cardiology, Dr. Ibrahim and maintained on beta-jossue, CCB, statin, torsemide, and spironolactone. Noted listed allergy to spironolactone but the states he has been tolerating this medication for years. Chronic Kidney Disease Stage 3B ([facility] [id number]): eGFR 31 in September. No recent labs as this is followed by nephrology and his community PCP. Recommended he stop allopurinol given diminished renal function at last visit. Sleep apnea: Uses CPAP intermittently. Does not tolerate it well. Gout: Recommended stopping allopurinol given decreased renal function. He will review with his see ripening room hand. Asthma: Stable with no recent flares. Never hospitalized for asthma exacerbation. Benign hypertension: Stable on several agents including amlodipine and carvedilol, torsemide, and spironolactone prescribed by outside providers. Diabetes mellitus: HbA1c 6.4% in September. Followed closely by his community PCP and maintained on insulin glargine. FOLLOW UP: RTC Below & sooner PRN UPCOMING APPOINTMENTS: 08/02/2024 14:30 CWM/SO/PACT 1 CHILD WELFARE CASEWORKER 08/03/2024 09:00 CWM/SO/PHYSICAL THERAPY B 08/06/2024 10:00 CWM/SO/CRISS/JUAN JACKSON 08/06/2024 15:30 CWM/SO/PHYSICAL THERAPY B 08/10/2024 10:00 CWM/SO/PHYSICAL THERAPY B 08/16/2024 07:30 CWM/SO/PHYSICAL THERAPY P 08/21/2024 09:30 CWM/SO/PHYSICAL THERAPY B 08/23/2024 07:30 CWM/SO/PHYSICAL THERAPY B 08/28/2024 08:30 NHM/OPTOMETRY/BEARD/ 09/26/2024 08:30 CWM/SO/PODIATRY/ROSS 01/23/2025 08:30 NHM DENTAL RDH 1 AM 35 minutes spent in patient evaluation, data [...] /clint/ FERMIN MEJIA NP NURSE PRACTITIONER Signed: 08/07/2024 17:46 08/08/2024 ADDENDUM STATUS: COMPLETED Called and spoke to . Forwarded PCP's message. states he understands information and will have them done today or tomorrow. [place] is also asking for chiro and accupuncture consu;ts to be placed for his neck pain. /clint/ GAURANG CHAPPELL RN REGISTERED NURSE Signed: 08/08/2024 11:41 FERMIN MEJIA [facility] Aug 02, 2024 02:23 PM PRIMARY CARE NURSE PRACTITIONER OUTPATIENT NOTE: LOCAL TITLE: NURSE PRACTITIONER OUTPATIENT NOTE STANDARD TITLE: PRIMARY CARE NURSE PRACTITIONER OUTPATIENT NOTE DATE OF NOTE: AUG 02, 2024@14:23 ENTRY DATE: AUG 02, 2024@14:23:58 AUTHOR: FERMIN MEJIA EXP COSIGNER: URGENCY: STATUS: COMPLETED NURSE PRACTITIONER OUTPATIENT NOTE Has ADDENDA PRIMARY CARE VISIT CLAUDIA ALEXANDRE, is a 69 yo [place] MALE who [facility] at the [facility]. TYPE OF VISIT: Face to face 69-year-old gentleman with an extensive past medical history including combined systolic and diastolic CHF, CKD stage IIIb, anemia of chronic disease, DM2, gout, HTN, HLD, SILVIA on BiPAP dependent on overnight oxygen, mechanical heart valve, and paroxysmal atrial fibrillation presented to the outpatient clinic in regular follow-up. He is comanaged with a community PCP. He started Ozempic 5 months ago; dose now at 2 mg but he is only taking 1 mg. Today he would like to look into a possible heart transplant. Recent labs and diagnostic studies were reviewed with the . All medications were reconciled during this visit. HEALTHCARE PROVIDERS: Community PCP: Josiah Akers at [facility] Pulmonology: Dr. Lala, [facility] Cardiology: Dr. Ibrahim [facility] Ortho: [facility] General surgery: [facility] Nephrology: Dr. Ham Social Hx: [place] is and lives with his . He stopped smoking in 1998. No alcohol or MJ. 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 No regular exercise due to baseline poor functional status. HISTORY: PERIOD OF SERVICE - [employer] FROM Apr TO Dec COMBAT SERVICE INDICATED: No MEDICAL HISTORY Active Problem Chronic combined systolic and diast 04/23/2024 FERMIN MEJIA Outside providers R69. 04/23/2024 MEJIA,SILVIO Contusion S70.01XS 04/01/2023 RIZWANA MARTINES Contusion of [...] R69. 11/08/2016 FLORES [place] Asthma J45.998 10/30/2015 IZABEAL HOLLAND Benign hypertension I10. 10/30/2015 IZABELA HOLLAND [...] Pulse Oximetry 97% (04/23/2024 08:34) ASSISTIVE DEVICES: None REVIEW OF SYSTEMS: CONSTITUTIONAL: [...] extremities, or unilateral weakness. EXAMINATION General: Well-appearing [place] in no obvious distress. Mental Status: Alert and oriented x4. Head: Normocephalic. Eyes: PERRLA. EOMI. Anicteric sclerae. ENT: Moist oral mucosa. Posterior pharynx unremarkable Neck: Supple. No JVD. No LAD. No bruit. Lungs: CTA. Normal chest excursion. Eupneic respirations. CV: Heart tones S1, S2. RRR. No M/G/R. No peripheral edema GI: Abdomen is soft and nontender. No palpable mass. : No CVA tenderness. Ext: No cyanosis or clubbing. No gross deformities. Neuro: CN II through XII grossly intact. Normal speech. Normal gait. Integument: Skin warm and dry. No rashes or lesions on visible areas. Psych: Normal mood and affect. Normal judgment. ALLERGIES: ========= PENICILLIN, SPIRONOLACTONE >> HEALTH MAINTENANCE PREVENTIVE MEDICINE GOALS Info Only: appssavvy Video Connect Capable DUE NOW Advance Directive Screen AD Apr 13 Hemoglobin A1C Oct 11 Home Telehealth (CCHT) Referral DUE NOW Influenza Immunization DUE NOW Medication Reconciliation DUE NOW COVID-19 Immunization DUE NOW Eye Care At-Risk Screen Aug 24 (Optional) Whole Health Documentation DUE NOW ASSESSMENT/PLAN: Active problems - Computerized Problem List is the source for the following: CHF - Congestive Heart Failure ([facility] [id number]): HFrEF followed by [facility] cardiology, Dr. Ibrahim and maintained on beta-jossue, CCB, statin, torsemide, and spironolactone. Noted listed allergy to spironolactone but the states he has been tolerating this medication for years. Chronic Kidney Disease Stage 3B ([facility] [id number]): eGFR 31 in September. No recent labs as this is followed by nephrology and his community PCP. Recommended he stop allopurinol given diminished renal function at last visit. Sleep apnea: Uses CPAP intermittently. Does not tolerate it well. Gout: Recommended stopping allopurinol given decreased renal function. He will review with his see ripening room hand. Asthma: Stable with no recent flares. Never hospitalized for asthma exacerbation. Benign hypertension: Stable on several agents including amlodipine and carvedilol, torsemide, and spironolactone prescribed by outside providers. Diabetes mellitus: HbA1c 6.4% in September. Followed closely by his community PCP and maintained on insulin glargine. FOLLOW UP: RTC Below & sooner PRN UPCOMING APPOINTMENTS: 08/02/2024 14:30 CWM/SO/PACT 1 CHILD WELFARE CASEWORKER 08/03/2024 09:00 CWM/SO/PHYSICAL THERAPY B 08/06/2024 10:00 CWM/SO/MHC/JUAN JACKSON 08/06/2024 15:30 CWM/SO/PHYSICAL THERAPY B 08/10/2024 10:00 CWM/SO/PHYSICAL THERAPY B 08/16/2024 07:30 CWM/SO/PHYSICAL THERAPY P 08/21/2024 09:30 CWM/SO/PHYSICAL THERAPY B 08/23/2024 07:30 CWM/SO/PHYSICAL THERAPY B 08/28/2024 08:30 NHM/OPTOMETRY/BEARD/ 09/26/2024 08:30 CWM/SO/PODIATRY/WILI 01/23/2025 08:30 ARM DENTAL RDH 1 AM 35 minutes spent in patient evaluation, data [...] this [facility] (local) and dispensed from another [place] or [facility] facility (remote) as well as [...] /clint/ FERMIN MEJIA NP NURSE PRACTITIONER Signed: 08/07/2024 17:46 08/07/2024 ADDENDUM STATUS: COMPLETED Team: Please contact the patient and requested he come for fasting labs which are overdue. Thank you. /garcia MEJIA NP NURSE PRACTITIONER Signed: 08/07/2024 17:50 Receipt Acknowledged By: * AWAITING SIGNATURE * PATTIE HUERTA 08/08/2024 11:38 /cilnt/ GAURANG CHAPPELL RN REGISTERED NURSE 08/08/2024 ADDENDUM STATUS: COMPLETED Called and spoke to [place]. Forwarded PCP's message. [place] states he understands information and will have them done today or tomorrow. [place] is also asking for chiro and accupuncture consu;ts to be placed for his neck pain. /clint/ GAURANG CHAPPELL RN REGISTERED NURSE Signed: 08/08/2024 11:41 FERMIN MEJIA
--- OUTSIDE RECORDS SUMMARY | 2025-02-13 11:28 | XMS_ITS ---
Author Name [facility] [place] Address [address] [place] [address] Care Team Providers Care Extrusion Operator Name Role Phone FERMIN MEJIA Primary Care [...] Mendiola's Name Patient's Relationship to Policy Mendiola [facility] MEDICARE ADVANTAGE [facility] ([facility]) Jul 31, 2017 [id number] STEVEN ALEXANDRE JR S PATIENT MEDICARE ([place]) MEDICARE ([place]) PART A Mar 31, 2012 PART A [id number] STEVEN ALEXANDRE JR S PATIENT MEDICARE (WNR) MEDICARE (M) PART B Mar 31, 2012 PART B [id number] STEVEN ALEXANDRE JR S PATIENT MEDICARE (WNR) MEDICARE (M) PART A Mar 31, 2012 PART A [id number] [phone] STEVEN ALEXANDRE JR S PATIENT MEDICARE (WN) MEDICARE (M) PART B Mar 31, 2012 PART B [id number] STEVEN ALEXANDRE JR PATIENT MEDICARE (WNR) MEDICARE (M) PART A Mar 31, 2012 PART A [id number] [phone] STEVEN ALEXANDRE JR S PATIENT MEDICARE (WNR) MEDICARE (M) PART B Mar 31, 2012 PART B [id number] [phone] STEVEN ALEXANDRE JR S PATIENT MEDICARE (WNR) MEDICARE (M) PART A Mar 31, 2012 PART A [id number] [phone] STEVEN ALEXANDRE JR S PATIENT MEDICARE (WNR) MEDICARE (M) PART B Mar 31, 2012 PART B [id number] [phone] STEVEN ALEXANDRE JR S PATIENT MEDICARE (WNR) MEDICARE (M) PART A Mar 31, 2012 PART A [id number] [phone] STEVEN ALEXANDRE JR PATIENT MEDICARE (WNR) MEDICARE (M) PART B Mar 31, 2012 PART B [id number] STEVEN ALEXANDRE JR PATIENT MEDICARE PART D (WNR) PRESCRIPT ION PART D May 31, 2012 PART D [id number] [phone] STEVEN ALEXANDRE JR PATIENT MEDICARE PART D (WNR) PRESCRIPT ION PART D May 31, 2012 PART D [id number] STEVEN ALEXANDRE JR PATIENT Selected Encounter This section includes the information on record at [place] for the Encounter. Date/Time Encounter Type Encounter Description Reason Provider Source Sep 21, 2024 09:30 AM MANUAL THERAPY 1/> [facility] ICD-10-CM M54.2 CervicalMERVIN Menon [facility] Encounter Template Text not used by [place] Assessments - Encounter Diagnoses This section includes the primary and secondary diagnoses documented for the Encounter. Date/Time Primary/Secondary Diagnosis Diagnosis Name Provider Source Sep 21, 2024 12:06 PM PRIMARY MIKAL VelasquezA [place] [facility] [place] [facility] Plan of Treatment: Future Appointments (+ 6 months) and Future Tests (+/- 45 days) The Plan of Treatment section includes future care activities for the patient from all [place] treatmentfacilities. This section includes future appointments and future orders which are active, pending or scheduled. Future Appointments This section includes appointments that were scheduled to occur 6 months from the date of the Encounter, up to a maximum of 20 appointments. The data comes from all [place] treatment facilities. Appointment Date/Time Appointment Type Appointme nt Facility Name Sep 24, 2024 02:00 PM AMBULATORY [facility]ICINE [facility] [place] [facility] Sep 25, 2024 01:00 PM AMBULATORY - MEDICINE [facility] [place] [facility] Sep 25, 2024 01:30 PM AMBULATORY - MEDICINE [facility] [place] [facility] Sep 25, 2024 02:00 PM AMBULATORY [facility] MEDICINE [facility] [place] [facility] Sep 26, 2024 08:30 AM AMBULATORY - MEDICINE [facility] Oct 03, 2024 09:30 AM AMBULATORY [facility] MEDICINE [facility] [place] [facility] Oct 09, 2024 07:30 AM AMBULATORY - REHAB MEDICIN [facility] Oct 10, 2024 09:30 AM AMBULATORY [facility] MEDICINE [facility] [place] [facility] Oct 16, 2024 08:30 AM AMBULATORY [facility] MEDICINE [facility] [place] [facility] Oct 22, 2024 02:00 PM AMBULATORY - REHAB MED[facility] Oct 25, 2024 09:00 AM AMBULATORY - MEDICINE [facility] [place] [facility] Nov 15, 2024 09:15 AM AMBULATORY - MEDICINE [facility] [place] [facility] Nov 29, 2024 08:45 AM AMBULATORY - MEDICINE [facility] [place] [facility] Dec 10, 2024 02:30 PM AMBULATORY - MEDICINE [facility] Dec 27, 2024 08:45 AM AMBULATORY - MEDICINE [facility] [place] [facility] Dec 31, 2024 02:00 PM AMBULATORY - PSYCHIATRY [facility] Jan 10, 2025 03:00 PM AMBULATORY - MEDICINE [facility] [place] [facility] Jan 16, 2025 11:30 AM AMBULATORY - PSYCHIATRY [facility] Jan 22, 2025 11:00 AM AMBULATORY - MEDICINE [facility] [place] [facility] Jan 23, 2025 08:30 AM AMBULATORY - NONE [facility] [place] [facility] Active, Pending, and Scheduled Orders This section includes a listing of several types of active, pending, and scheduled orders, including clinic medications orders, diagnostic test orders, procedure orders and consult orders; where the start date of the order is 45 days before the date of the Encounter or 45 days after the date of theEncounter. The data comes from all [facility] facilities. Test Date/Time Test Type Test Details Facility Name Aug 17, 2024 12:00 AM Laboratory - Chemi stry Order MICROALBUMIN CREATININE RATIO PANEL URINE (RANDOM) [facility] Aug 17, 2024 12:00 AM Laboratory - Chemi stry Order PSA BLOOD (SST-SERUM) [facility] Aug 17, 2024 12:00 AM Laboratory - Chemi stry Order VITAMIN D (25-OH) BLOOD (SST-SERUM) [facility] Aug 17, 2024 12:00 AM Laboratory - Chemi stry Order TSH BLOOD (SST-SERUM) [facility] Aug 17, 2024 12:00 AM Laboratory - Chemi stry Order PT & INR (COUMADIN) BLOOD (BLUE-PLASMA) [facility] Aug 17, 2024 12:00 AM Laboratory - Chemi stry Order CBC AND DIFF (AUTO) BLOOD (LAV-BLOOD) [facility] Aug 17, 2024 12:00 AM Laboratory - Chemi stry Order HEMOGLOBIN A1C PANEL BLOOD (LAV-BLOOD) [facility] Aug 17, 2024 12:00 AM Laboratory - Chemi stry Order MAGNESIUM BLOOD (SST-SERUM) [facility] Aug 17, 2024 12:00 AM Laboratory - Chemi stry Order LIPID PANEL FASTING BLOOD (SST-SERUM) [facility] Aug 17, 2024 12:00 AM Laboratory - Chemi stry Order LIVER FUNCTION BLOOD (SST-SERUM) [facility] Aug 17, 2024 12:00 AM Laboratory - Chemi stry Order BASIC METABOLIC PANEL (fasting) BLOOD (SST-SERUM) [facility] Aug 17, 2024 12:00 AM Laboratory - Chemi stry Order VITAMIN B12 BLOOD (SST-SERUM) [facility] Aug 17, 2024 12:00 AM Laboratory - Chemi stry Order CALCIUM BLOOD (SST-SERUM) [facility] Social History: Smoking Status (Most current) and Tobacco Use (All prior to encounter date) This section includes the most current, and the historical, smoking and tobacco- related health factors from the [place] facility where the Encounter took place. Current Smoking Status This section includes the most current smoking, or tobacco-related health factor, from the [place] facility where the Encounter took place. Date/Time Current Smoking Status Comment Facil ity Oct 27, 2023 10:10 AM [place]-TOBAC[place] FORMER USER [facility] Tobacco Use History This section includes a history of the smoking, or tobacco-related health factors, that were collected on or before the date of the Encounter. The data comes from the [place] facility where the Encounter took place. Date/Time Smoking Status/Tobacco Use Comment F acility Oct 27, 2023 10:10 AM [place]-TOBAC[place] QUIT 15 YRS OR MORE [facility] Encounter Notes: All associated encounter notes This section contains the clinical notes associated to the Encounter. Date/Time Encounter Note(s) Provider Source Sep 21, 2024 08:27 AM CHIROPRACTIC NOTE: LOCAL TITLE: CHIROPRACTOR PROGRESS NOTE STANDARD TITLE: CHIROPRACTIC NOTE DATE OF NOTE: SEP 21, 2024@08:27 ENTRY DATE: SEP 21, 2024@08:27:50 AUTHOR: MERVIN FLOR EXP COSIGNER: URGENCY: STATUS: [...] arthroplasty January 13, 2024 Patient [facility] with C/C of a little neck pain with N/T down R arm into fingers 3, 4, 5 He denies weakness Last night he did not arrange the pillow to support his neck. This morning the neck pain was much worse. Patient is in PT [facility] for a knee problem. He describes the pain as intermittent Vet rates the pain average on the NPRS 4/10 Onset: last year after he fell in [employer] parking lot. He pulled a shopping care that was caught . He fell and landed on his back and his head hit last. About 3-4 days later he went to [facility]. [facility] in [facility] [...] cardiac problems. Prior treatment: x-rays taken at [facility]; Gabapentin Prior health care liaison: None Exercise/Activities: daily he squeezes a ball [...] Supine gluteal stretching as per palpation Objectives 09/21/24: Hypertonic tender Cervical paraspinal mm CMT AT [...] and pain modulation. Plan: trial Chiro Visit 2 F/U 4 visits Seek urgent care as needed. CMT: chiropractic manipulative therapy SMT: Spinal Manipulative Therapy F/D: Flexion Distraction MFR: Myofascial Release S-I: Sacroiliac MFTP: Myofascial Trigger Point NRS: Numeric Rating Scale N/T: Numbness/Tingling PIR: Post isometric relaxation /es/ MERVIN FLOR D.C. CHIROPRACTOR Signed: 09/21/2024 12:07 MERVIN FLOR [facility]
--- OUTSIDE RECORDS SUMMARY | 2025-02-13 11:28 | XMS_ITS | Encounter Summary ---
Author Name [facility] [place] Address [address] [place] [address] Care Team Providers Care Accounts Payable Administrator Name Role Phone FERMIN MEJIA Primary Care [...] Mendiola's Name Patient's Relationship to Policy [facility] MEDICARE ADVANTAGE [facility] ([facility]) Jul 31, 2017 [id number] STEVEN ALEXANDRE JR Silvia PATIENT MEDICARE ([facility]) MEDICARE (M) PART A Mar 31, 2012 PART A [id number] STEVEN ALEXANDRE JR Silvia PATIENT MEDICARE ([facility]) MEDICARE (M) PART B Mar 31, 2012 PART B [id number] STEVEN ALEXANDRE JR S PATIENT MEDICARE ([facility]) MEDICARE (M) PART A Mar 31, 2012 PART A [id number] [phone] STEVEN ALEXANDRE JR S PATIENT MEDICARE (WNR) MEDICARE (M) PART B Mar 31, 2012 PART B [id number] [phone] STEVEN ALEXANDRE JR PATIENT MEDICARE (WNR) MEDICARE (M) PART A Mar 31, 2012 PART A [id number] STEVEN ALEXANDRE JR S PATIENT MEDICARE (WNR) MEDICARE (M) PART B Mar 31, 2012 PART B [id number] STEVEN ALEXANDRE JR PATIENT MEDICARE (WNR) MEDICARE (M) PART A Mar 31, 2012 PART A [id number] [phone] STEVEN ALEXANDRE JR S PATIENT MEDICARE (WNR) MEDICARE (M) PART A Mar 31, 2012 PART A [id number] STEVEN ALEXANDRE JR S PATIENT MEDICARE (WNR) MEDICARE (M) PART B Mar 31, 2012 PART B [id number] [phone] STEVEN ALEXANDRE JR PATIENT MEDICARE (WNR) MEDICARE (M) PART B Mar 31, 2012 PART B [id number] [phone] STEVEN ALEXANDRE JR PATIENT MEDICARE PART D (WNR) PRESCRIPT ION PART D May 31, 2012 PART D [id number] [phone] STEVEN ALEXANDRE JR PATIENT MEDICARE PART D (WNR) PRESCRIPT ION PART D May 31, 2012 PART D [id number] STEVEN ALEXANDRE JR PATIENT Selected Encounter This section includes the information on record at [place] for the Encounter. Date/Time Encounter Type Encounter Description Reason Provider Source Sep 25, 2024 01:30 PM OFF/OP EST FEBRUARY X REQ PHY/QHP PRIMARY CARE/MEDICINE ICD-10-CM Z71.89 Other specified counseling HILTON NICHOLAS E Encounter Template Text not used by [place] Assessments - Encounter Diagnoses This section includes the primary and secondary diagnoses documented for the Encounter. Date/Time Primary/Secondary Diagnosis Diagnosis Name Provider Source Sep 25, 2024 01:52 PM PRIMARY Other specified counseling HILTON NICHOLAS [place] [facility] [place] [facility] Plan of Treatment: Future Appointments (+ 6 months) and Future Tests (+/- 45 days) The Plan of Treatment section includes future care activities for the [facility] [place] [facility] This section includes future appointments [...] 2024 08:30 AM AMBULATORY - MEDICINE [facility] Oct 03, 2024 09:30 AM AMBULATORY - MEDICINE [facility] [place] [facility] Oct 09, 2024 07:30 AM AMBULATORY - REHAB MEDICIN [facility] Oct 10, 2024 09:30 AM AMBULATORY - MEDICINE [facility] [place] [facility] Oct 16, 2024 08:30 AM AMBULATORY - MEDICINE [facility] [place] [facility] Oct 22, 2024 02:00 [facility] Oct 25, 2024 09:00 AM AMBULATORY - MEDICINE [facility] [place] [facility] Nov 15, 2024 09:15 AM AMBULATORY - MEDICINE [facility] [place] [facility] Nov 29, 2024 08:45 AM AMBULATORY - MEDICINE [facility] [place] [facility] Dec 10, 2024 02:30 PM AMBULATORY - MEDICINE [facility] Dec 27, 2024 08:45 AM AMBULATORY - MEDICINE [facility] [place] [facility] Dec 31, 2024 02:00 PM AMBULATORY - PSYCHIATRY [facility] Jan 10, 2025 03:00 PM AMBULATORY - MEDICINE [facility] [place] [facility] Jan 16, 2025 11:30 AM AMBULATORY - PSYCHIATRY [facility] Jan 22, 2025 11:00 AM AMBULATORY - MEDICINE [facility] [place] [facility] Jan 23, 2025 08:30 AM AMBULATORY - NONE [facility] [place] [facility] Jan 23, 2025 09:00 AM AMBULATORY - NONE [facility] [place] [facility] Jan 31, 2025 08:30 AM AM[facility]ULATORY - [facility]ICINE [facility] Feb 06, 2025 10:30 AM AMBULATORY - MEDICINE [facility] [place] [facility] Feb 12, 2025 08:00 AM AMBULATORY - PSYCHIATRY [facility] Active, Pending, and Scheduled Orders This section includes a listing of several types of active, pending, and scheduled orders, including clinic medications orders, diagnostic test orders, procedure orders and consult orders; where the start date of the order is 45 days before the date of the Encounter or 45 days after the date of theEncounter. The data comes from all [place] treatment facilities. Test Date/Time Test Type Test Details Facility Name Aug 17, 2024 12:00 AM Laboratory - Chemi stry Order MICROALBUMIN CREATININE RATIO PANEL URINE (RANDOM) [facility] Aug 17, 2024 12:00 AM Laboratory - Chemi stry Order PSA BLOOD (SST-SERUM) [facility] Aug 17, 2024 12:00 AM Laboratory - Chemi stry Order VITAMIN D (25-OH) BLOOD (SST-SERUM) [facility] Aug 17, 2024 12:00 AM Laboratory - Chemi stry Order PT & INR (COUMADIN) BLOOD (BLUE-PLASMA) [facility] Aug 17, 2024 12:00 AM Laboratory - Chemi stry Order CBC AND DIFF (AUTO) BLOOD (LAV-BLOOD) [facility] Aug 17, 2024 12:00 AM Laboratory - Chemi stry Order HEMOGLOBIN A1C PANEL BLOOD (LAV-BLOOD) [facility] Aug 17, 2024 12:00 AM Laboratory - Chemi stry Order MAGNESIUM BLOOD (SST-SERUM) [facility] Aug 17, 2024 12:00 AM Laboratory - Chemi stry Order TSH BLOOD (SST-SERUM) [facility] Aug 17, 2024 12:00 AM Laboratory - Chemi stry Order LIPID PANEL FASTING BLOOD (SST-SERUM) [facility] Aug 17, 2024 12:00 AM Laboratory - Chemi stry Order LIVER FUNCTION BLOOD (SST-SERUM) [facility] Aug 17, 2024 12:00 AM Laboratory - Chemi stry Order CALCIUM BLOOD (SST-SERUM) [facility] Aug 17, 2024 12:00 AM Laboratory - Chemi stry Order BASIC METABOLIC PANEL (fasting) BLOOD (SST-SERUM) [facility] Aug 17, 2024 12:00 AM Laboratory - Chemi stry Order VITAMIN B12 BLOOD (SST-SERUM) [facility] Vital Signs: All taken on the encounter date This section contains inpatient and outpatient Vital Signs collected on the date of the Encounter. Date/Time Temperature Pulse Blood Pressure Respiratory Rate SP02 Pain Height Weight Body Mass Index Source Sep 25, 2024 01:45 PM 98 58 104/66 18 94 1 269 37 [facility] Social History: Smoking Status (Most current) and [...] 27, 2023 10:10 AM [place]-TOBAC[place] FORMER USER [facility] Tobacco Use History This section includes a history of the smoking, or tobacco-related health factors, that were collected on or before the date of the Encounter. The data comes from the [place] facility where the Encounter took place. Date/Time Smoking Status/Tobacco Use Comment F acility Oct 27, 2023 10:10 AM [place]-TOBACCO QUIT 15 YRS OR MORE [facility] Encounter Notes: All associated encounter notes This section contains the clinical notes associated to the Encounter. 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 Toes are bruised, able to ambulate without a lot of pain, able to move toes and foot, pedal pulses are present, denies any parenthesis. R: To be evaluated by sick call Provider MEGHAN. Blood Pressure: 104/66 (09/25/2024 13:45) Pain: 1 (09/25/2024 13:45) Patient Height: 72 in [182.9 cm] (04/23/2024 08:34) Patient Weight: 269 lb [122.02 kg] (09/25/2024 13:45) Pulse: 58 (09/25/2024 13:45) Respiration: 18 (09/25/2024 13:45) Temperature: 98 F [36.7 C] (09/25/2024 13:45) /clint/ FIDENCIO NICHOLAS Registered Nurse Signed: 09/25/2024 13:52 FIDENCIO NICHOLAS [facility]
== END 2025-02-13 10:54 | disposition home or self-care (01) ==
LOC: HO.HKAS 09:59
PROVIDERS: PCP Internal Medicine; Visit Provider Internal Medicine Hypertension Specialist
DX: N18.4 Chronic kidney disease, stage 4 (severe) (principal); D64.9 Anemia, unspecified; I50.9 Heart failure, unspecified
CPT/HCPCS: 99214

== ENCOUNTER → 2025-02-13 09:59 | Outpatient (BNVA) | payer MEDICARE, MEDICAID, SELFPAY | PROVIDERS: PCP Internal Medicine; Visit Provider Internal Medicine Hypertension Specialist | DX: N18.4 Chronic kidney disease, stage 4 (severe) (principal); D64.9 Anemia, unspecified; I50.9 Heart failure, unspecified | CPT/HCPCS: 99212 ==